=== PATIENT | male | born 1955 | race African-American/Black ===

== ENCOUNTER 2016-08-29 07:56 | Inpatient (IN) | payer OTHER ==
[~2016-08-29] VITALS: Ht 177.8 cm; Wt 104.3 kg
[~2016-08-29 07:56] MED LIST: ACETAMINOPHEN-1 EAC1 ORAL; ALBUTEROL SULF8.5 GM INH; ALBUTEROL2.5 MG/3 M HHN; ASPIR-LOW81 MG PO; AZITHROMYCIN250 MG ORAL; AZITHROMYCIN250 MG PO; AZITHROMYCIN500 MG ORAL; BENAZEPRIL HCL20 MG ORAL; CHLORTHALIDONE50 MG ORAL; DULERA 100 MCG/13 GM INH; FUROSEMIDE40 MG ORAL; IBUPROFEN600 MG ORAL; LASIX40 MG ORAL; PREDNISONE20 MG ORAL; PREDNISONE50 MG ORAL; PREDNISONE50 MG PO; SPIRIVA18 MCG INH
[2016-08-29] MEDS ORDERED: Solu-MEDROL 125mg Inj IVP ONE (08:15)
[2016-08-29] MEDS ORDERED: Azithromycin 500 MG in NS 275 ML IV ONE (08:15)
[2016-08-29] MEDS: Ipratropium 0.02% Inh Soln 2.5ml UD HHN SCH ×3 (08:21→08:50)
[2016-08-29 08:33] VITALS: BP 190/120
[2016-08-29] MEDS: Albuterol ud Inhalation HHN SCH ×3 (08:37→08:51)
[2016-08-29] MEDS ORDERED: Azithromycin Inj IV ONE (08:47)
--- NOTE | 2016-08-29 08:57 | Emergency Room Report ---
History of Present Illness General Chief Complaint: Lower Back Pain or Injury Source: Patient Present Illness HPI 61 YO M BIBEMS for "right lower back pain" for 2 days with weakness/difficulty ambulating. Denies any trauma. Denies lower extremity muscle strength weakness , urinary/fecal incontinence, history of IVDU, fever/chills, known sciatica. Here, patient states "I'm worried I have appendicitis but I have no idea what that feels like." Then patient endorses cough, SOB. + history for COPD but denies smoking now. States has "filter" for blood clots but is not on AC currently. States known HTN, but also not on meds. States "pre-diabetic." Not on medication for that either. Patient also has golf club/iron with him. States its his "weapon" and "for walking". States [employer] took his wheelchair. Patient is undomiciled. Allergies: Coded Allergies: No Known Allergies (Verified , 12/21/06) Patient History Past Medical History: HTN, COPD, other - DVT/PE? Past Surgical History: other - IVC filter? Pertinent Family History: none Social History: Denies: alcohol use, drug use, smoking Immunizations: UTD Reviewed Nursing Documentation: PMH: Agreed, PSxH: Agreed Nursing Documentation-PMH Hx Cardiac Problems: No - PE in 01/2014 Hx Hypertension: Yes Hx COPD: Yes - Pulomary emboli Hx Cancer: No Hx Gastrointestinal Problems: Yes Hx Neurological Problems: Yes Hx Weakness: Yes Review of Systems All Other Systems: negative except mentioned in HPI Physical Exam Vital Signs Date Time Temp Pulse Resp B/P Pulse Ox O2 Delivery O2 Flow Rate FiO2 08/29/16 07:56 98.2 85 18 190/120 94 Room Air 08/29/16 08:15 21 Sp02 EP Interpretation: reviewed, abnormal General Appearance: normal inspection, well appearing, no apparent distress, alert, GCS 15, non-toxic Head: normocephalic, atraumatic Eyes: bilateral eye EOMI, bilateral eye PERRL ENT: normal ENT inspection, hearing grossly normal, normal voice Neck: normal inspection, full range of motion, supple, no bony tend Respiratory: normal inspection, lungs clear, normal breath sounds, no rhonchi, no respiratory distress, no retraction, no accessory muscle use, no wheezing, crackles, rhonchi Cardiovascular #1: regular rate, rhythm, no edema Gastrointestinal: normal inspection, normal bowel sounds, non tender, soft, no guarding, no hernia Genitourinary: no CVA tenderness Musculoskeletal: normal inspection, back normal, normal range of motion, no calf tenderness, pelvis stable, Michelle's Sign negative, other - No midline back Neurologic: normal inspection, alert, oriented x3, responsive, charge operator III-XII nml as tested, motor strength/tone normal, other - Straight leg raise test negative Psychiatric: normal inspection, judgement/insight normal, mood/affect normal Skin: other - No pitting edema. Chronic venous stasis dermatitis bilaterally. No ulcers Lymphatic: normal inspection Medical Decision Making Diagnostic Impression: Primary Impression: COPD exacerbation Additional Impressions: Hypertension Qualified Codes: I10 - Essential (primary) hypertension Weakness ER Course 61 YO F with likely acute COPD exacerbation. VSS. Afebrile. Not septic. Empiric nebs, solumedrol, empiric Azithromycin PLAN: Cardiac, O2 monitor, Labs, CXR, ECG, likely admit EKG Diagnostic Results Rate: normal Rhythm: NSR ST Segments: no acute changes ASA given to the pt in ED: No Rhythm Strip Diag. Results EP Interpretation: yes Rate: 69 Rhythm: NSR, no PVC's, no ectopy Chest X-Ray Diagnostic Results EP Interpretation: Yes Findings: no consolidation, no effusion, no pneumothorax, no acute cardiopulmonary disease Number of Views: 1 Reevaluation Time: 09:16 Last Vital Signs Date Time Temp Pulse Resp B/P Pulse Ox O2 Delivery O2 Flow Rate FiO2 08/29/16 08:38 21 08/29/16 08:38 72 20 98 Room Air 08/29/16 08:33 98.2 190/120 Status: improved Reevaluation Impression Labs: No leuks. H&H stable. Coags show INR 1. Troponin 0. ECG is NSR, no ischemia. CXR: No obvious PNA A: Admitted for weakness, acute COPD exacerbation Admitted to Dr Alfonso at 917am Disposition: ADMITTED INPATIENT Condition: Serious Referrals: NON PHYSICIAN (PCP) KINGSTON COMBS M.D. Aug 29, 2016 08:57
[2016-08-29 09:02] LABS: BASOPHILS % (AUTO) 1.6 % (0.0-2.0); EOSINOPHILS % (AUTO) 3.3 % (0.0-3.0); LYMPHOCYTES % (AUTO) 25.6 % (20.0-45.0); MEAN CORPUSCULAR HGB CONC 31.1 G/DL (32.0-36.0); MEAN CORPUSCULAR VOLUME 93 FL (80-99); MEAN PLATELET VOLUME 7.9 FL (6.5-10.1); MONOCYTES % (AUTO) 10.3 % (1.0-10.0); NEUTROPHILS % (AUTO) 59.3 % (45.0-75.0); PLATELET COUNT 175 K/UL (150-450); RED BLOOD COUNT 5.39 M/UL (4.70-6.10); RED CELL DISTRIBUTION WIDTH 13.9 % (11.6-14.8); WHITE BLOOD COUNT 4.2 K/UL (4.8-10.8)
[2016-08-29 09:05] LABS: PROTHROMBIN TIME 10.4 SEC (9.30-11.50)
[2016-08-29 09:09] LABS: ALANINE AMINOTRANSFERASE 12 U/L (3-41); ALBUMIN/GLOBULIN RATIO 1.7 (1.0-2.7); ANION GAP 16 (5-15); ASPARTATE AMINO TRANSFERASE 18 U/L (5-40); CALCIUM 9.4 mg/dL (8.6-10.2); CARBON DIOXIDE 25 mEQ/L (20-30); CHLORIDE 101 mEQ/L (98-107); CREATININE 1.2 mg/dL (0.7-1.2); GLOMERULAR FILTRATION RATE > 60 mL/min (>60); HEMOLYSIS 7; LIPASE 52 U/L (< 60); POTASSIUM 4.4 mEQ/L (3.4-4.9); SODIUM 142 mEQ/L (135-145); TOTAL PROTEIN 6.7 g/dL (6.6-8.7); TROPONIN I < 0.30 ng/mL (<=0.30)
[2016-08-29 09:52] LABS: APPEARANCE,URINE CLEAR; KETONES,URINE 1+ (NEGATIVE); LEUKOCYTE ESTERASE ,URINE NEGATIVE (NEGATIVE); NITRITE,URINE NEGATIVE (NEGATIVE); PH,URINE 7 (4.5-8.0); PROTEIN,URINE NEGATIVE (NEGATIVE); UROBILINOGEN,URINE NORMAL MG/DL (0.0-1.0)
[2016-08-29 10:30] VITALS: BP 172/107
--- NOTE | 2016-08-29 10:38 | Diagnostic Imaging Report ---
Indication: Chest Pain Comparison: 12/06/15 A single view chest radiograph was obtained. Findings: No definite infiltrate or pulmonary vascular congestion identified. The heart is enlarged. The aorta is mildly enlarged consistent with atherosclerotic vascular disease. The bones are osteopenic. Impression: No acute disease
[2016-08-29 11:00] VITALS: BP 155/102
[2016-08-29 16:00] VITALS: BP 167/112
[2016-08-29] MEDS ORDERED: DuoNeb 0.5-3(2.5)mg/3ml neb HHN PRN (16:30)
[2016-08-29] MEDS ORDERED: Zolpidem 5mg tab ORAL PRN (16:30)
--- NOTE | 2016-08-29 16:50 | Consultation ---
History of Present Illness General Date patient seen: Aug 29, 2016 Chief Complaint: Lower Back Pain or Injury Present Illness HPI 61 year old homeless man with of IVDU, COPD, prsents with CC of cough, SOB. He was noticed to have swollen legs and admitted for bronchitis and dyspnea Allergies: Coded Allergies: No Known Allergies (Verified , 12/21/06) Medication History Scheduled Albuterol Sulfate* (Albuterol Sulfate Hhn*), 2.5 MG HHN Q6H, (Reported) Albuterol Sulfate* (Albuterol Sulfate Mdi*), 2 PUFF INH Q6H Aspirin* (Aspir-Low*), 81 MG PO DAILY, (Reported) Benazepril Hcl* (Benazepril Hcl*), 20 MG ORAL DAILY Benazepril Hcl* (Benazepril Hcl*), 20 MG ORAL EVERY 12 HOURS Chlorthalidone* (Chlorthalidone*), 50 MG ORAL DAILY, (Reported) Furosemide* (Lasix*), 40 MG ORAL DAILY Mometasone/Formoterol (Dulera 100 Mcg/5 Mcg Inhaler), 2 PUFFS INH EVERY 12 HOURS , (Reported) Prednisone* (Prednisone*), 60 MG ORAL DAILY Tiotropium [place]* (Spiriva*), 1 PUFF INH DAILY, (Reported) Scheduled PRN Acetaminophen With Codeine (T#3) (Tylenol #3 Tab*), 1 TAB ORAL Q8H PRN for For Pain Ibuprofen* (Motrin*), 600 MG ORAL Q8H PRN for For Pain Patient History Healthcare decision maker Resuscitation status Full Code Advanced Directive on File Past Medical/Surgical History Past Medical/Surgical History: (1) COPD exacerbation (2) Hypertension Review of Systems All Other Systems: negative except mentioned in HPI Physical Exam General Appearance: WD/WN Lines, tubes and drains: central line, PICC HEENT: normocephalic, atraumatic, PERRL Neck: normal alignment Respiratory/Chest: chest wall non-tender, lungs clear Cardiovascular/Chest: normal peripheral pulses Last 24 Hour Vital Signs Date Time Temp Pulse Resp B/P Pulse Ox O2 Delivery O2 Flow Rate FiO2 08/29/16 16:00 98.6 78 20 167/112 93 Room Air 08/29/16 11:00 98.4 85 20 155/102 96 Room Air 08/29/16 10:31 98.2 88 17 172/107 96 Room Air 21 08/29/16 10:30 98.2 88 17 172/107 96 Room Air 08/29/16 09:02 88 16 96 Room Air 21 08/29/16 08:38 21 08/29/16 08:38 72 20 98 Room Air 21 08/29/16 08:33 98.2 22 190/120 96 Room Air 21 08/29/16 08:15 69 22 Room Air 21 08/29/16 08:15 69 22 96 Room Air 21 08/29/16 08:15 21 08/29/16 07:56 98.2 85 18 190/120 94 Room Air Laboratory Tests Test 08/29/16 08:24 08/29/16 09:36 White Blood Count 4.2 K/UL (4.8-10.8) L Red Blood Count 5.39 M/UL (4.70-6.10) Hemoglobin 15.6 G/DL (14.2-18.0) Hematocrit 50.2 % (42.0-52.0) Mean Corpuscular Volume 93 FL (80-99) Mean Corpuscular Hemoglobin 29.0 PG (27.0-31.0) Mean Corpuscular Hemoglobin Concent 31.1 G/DL (32.0-36.0) L Red Cell Distribution Width 13.9 % (11.6-14.8) Platelet Count 175 K/UL (150-450) Mean Platelet Volume 7.9 FL (6.5-10.1) Neutrophils (%) (Auto) 59.3 % (45.0-75.0) Lymphocytes (%) (Auto) 25.6 % (20.0-45.0) Monocytes (%) (Auto) 10.3 % (1.0-10.0) H Eosinophils (%) (Auto) 3.3 % (0.0-3.0) H Basophils (%) (Auto) 1.6 % (0.0-2.0) Prothrombin Time 10.4 SEC (9.30-11.50) Prothromb Time International Ratio 1.0 (0.9-1.1) Activated Partial Thromboplast Time 28 SEC (23-33) Sodium Level 142 mEQ/L (135-145) Potassium Level 4.4 mEQ/L (3.4-4.9) Chloride Level 101 mEQ/L (98-107) Carbon Dioxide Level 25 mEQ/L (20-30) Anion Gap 16 (5-15) H Blood Urea Nitrogen 17 mg/dL (7-23) Creatinine 1.2 mg/dL (0.7-1.2) Estimat Glomerular Filtration Rate > 60 mL/min (>60) Glucose Level 96 mg/dL (74-106) Calcium Level 9.4 mg/dL (8.6-10.2) Total Bilirubin 0.5 mg/dL (0.0-1.2) Aspartate Amino Transf (AST/SGOT) 18 U/L (5-40) Alanine Aminotransferase (ALT/SGPT) 12 U/L (3-41) Alkaline Phosphatase 91 U/L (40-129) Total Creatine Kinase 104 U/L (38-174) Troponin I < 0.30 ng/mL (<=0.30) Total Protein 6.7 g/dL (6.6-8.7) Albumin 4.3 g/dL (3.5-5.2) Globulin 2.4 g/dL Albumin/Globulin Ratio 1.7 (1.0-2.7) Lipase 52 U/L (< 60) Urine Color Pale yellow Urine Appearance Clear Urine pH 7 (4.5-8.0) Urine Specific [place] 1.010 (1.005-1.035) Urine Protein Negative (NEGATIVE) Urine Glucose (UA) Negative (NEGATIVE) Urine Ketones 1+ (NEGATIVE) H Urine Occult Blood Negative (NEGATIVE) Urine Nitrite Negative (NEGATIVE) Urine Bilirubin Negative (NEGATIVE) Urine Urobilinogen Normal MG/DL (0.0-1.0) Urine Leukocyte Esterase Negative (NEGATIVE) Height (Feet): 5 Height (Inches): 10.00 Weight (Pounds): 230 Medications Current Medications Medications (Trade) Dose Ordered Sig/Fabi Route PRN Reason Start Time Stop Time Status Last Admin Dose Admin Acetaminophen (Tylenol) 650 mg Q4H PRN ORAL Mild Pain/Temp > 100.5 08/29/16 16:45 09/28/16 16:44 UNV Albuterol/ Ipratropium (DuoNeb 0.5-3(2.5)mg/3ml) 3 ml EVERY 4 HOURS PRN HHN Shortness of Breath 08/29/16 16:30 09/03/16 16:29 UNV Ceftriaxone Sodium/Dextrose (Rocephin/D5W) 55 ml @ 110 mls/hr Q24H IVPB 08/29/16 16:45 09/05/16 16:44 UNV Dextrose STAT PRN IV Hypoglycemia 08/29/16 16:30 09/28/16 16:29 UNV Diphenhydramine HCl (Benadryl) 25 mg Q6H PRN ORAL Itching/Pruritis 08/29/16 16:30 09/28/16 16:29 UNV Heparin Sodium (Porcine) (Heparin 5000 units/ml) 5,000 units EVERY 12 HOURS SUBQ 08/29/16 21:00 09/28/16 20:59 UNV Hydromorphone HCl (Dilaudid) 2 mg EVERY 4 HOURS PRN IVP Severe Pain (Pain Scale 7-10) 08/29/16 16:30 09/05/16 16:29 UNV Levofloxacin 100 ml @ 100 mls/hr Q24H IVPB 08/29/16 16:45 09/05/16 16:44 UNV Ondansetron HCl (Zofran) 4 mg EVERY 4 HOURS PRN IVP Nausea & Vomiting 08/29/16 16:30 09/28/16 16:29 UNV Pantoprazole (Protonix) 40 mg DAILY ORAL 08/29/16 16:30 09/28/16 16:29 UNV Zolpidem Tartrate (Ambien) 10 mg HSPRN PRN ORAL Insomnia 08/29/16 16:30 09/28/16 16:29 UNV Assessment/Plan Problem List: (1) COPD exacerbation (2) Hypertension ICD Codes: I10 - Essential (primary) hypertension SNOMED: 78919736 (3) Weakness ICD Codes: R53.1 - Weakness SNOMED: 24923698 (4) Peripheral edema ICD Codes: R60.9 - Edema, unspecified SNOMED: 058385237 (5) History of DVT (deep vein thrombosis) ICD Codes: Z86.718 - Personal history of other venous thrombosis and embolism SNOMED: 915966903 Assessment/Plan iv antibiotics respiratory treatment venous doppler HELEN MURRAY Aug 29, 2016 16:50
[2016-08-29] MEDS: Furosemide 40mg tab ORAL SCH (18:09)
--- NOTE | 2016-08-29 18:33 | Consultation ---
Consult Note Consult Note Complaining of bilateral foot toenails being painful and elongated. States bilateral leg edema has improved over the past year. Has a history of posterior leg pruritus and dry scaly hyperkeratotic tissue Assessment/Plan Assessment: - Painful mycotic and elongated toenails - Bilateral leg pruritus and hyperkeratosis at the posterior legs - Bilateral leg edema - COPD - Homelessness - History of DVT Plan: - Debrided toenails bilaterally - Start applying A&D ointment to bilateral feet and legs - No DVT bilateral lower extremities with doppler studies in 2013. Repeating studies. Follow up results Larry Gonzalez DPM Aug 29, 2016 18:33
[2016-08-29 19:00] VITALS: BP 138/86
[2016-08-29] MEDS: Theophylline ER 100mg ORAL SCH (20:24)
[2016-08-29] MEDS: Miralax 17gm pkt ORAL SCH (20:24)
[2016-08-29] MEDS: cefTRIAXone 1 GM in D5W 55 ML IVPB SCH (20:25)
[2016-08-29] MEDS: Heparin 5000 units/ml inj SUBQ SCH (20:27)
--- NOTE | 2016-08-29 22:57 | History and Physical Report ---
DATE OF ADMISSION: 08/29/2016 CHIEF COMPLAINT: The patient is a 61-year-old male, presents with complaint of right lower back pain. HISTORY OF PRESENT ILLNESS: Began on 08/28/2016. The patient is currently homeless. The patient states he sleeps on a patio of a friend. 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 The patient denies trauma. The patient denies fevers or chills. The patient denies hematuria or dysuria. The patient was brought in by EMS. The patient was complaining of right flank pain as above. The patient was admitted for right flank pain to rule out pyelonephritis. PAST MEDICAL HISTORY: Significant for, 1. Prediabetes. 2. Hypertension. 3. Chronic obstructive pulmonary disease. 4. History of deep venous thrombosis bilateral lower extremities with pulmonary embolism, status post IVC filter placement in 2012. PAST SURGICAL HISTORY: The patient denies. CURRENT MEDICATIONS: The patient has run out of all of his medications. ALLERGIES: No known drug allergies. SOCIAL HISTORY: The patient is single and lives with a friend. The patient denies tobacco use having quit in 2008. The patient denies alcohol use. REVIEW OF SYSTEMS: Constitutional: The patient denies weight loss or weight gain. The patient denies fevers or chills. HEENT: The patient denies ear or throat pain. Cardiovascular: The patient denies palpitations or chest pain. Chest: The patient denies wheezes or shortness of breath. Abdomen: The patient complains of right flank pain as above. The patient denies nausea, vomiting, diarrhea, or constipation. Genitourinary: The patient denies dysuria or increased frequency of urination. The patient denies hematuria. Neuromuscular: The patient denies seizures or generalized weakness. PHYSICAL EXAMINATION: VITAL SIGNS: Temperature 98.2 degrees, respirations 17, pulse 88, and blood pressure 172/107. GENERAL: The patient is well-developed and well-nourished male, in no apparent distress. HEENT: Eyes, pupils are equal and responsive to light and accommodation. Extraocular movements are intact. NECK: Supple. No lymphadenopathy. CHEST: Lungs are clear to auscultation bilaterally without wheezes or rales. CARDIOVASCULAR: Regular rhythm and rate. S1, S2. No murmurs, rubs, or gallops. ABDOMEN: Soft, nontender, and nondistended. Positive bowel sounds. No evidence of hepatosplenomegaly. Currently, no rebound or guarding. EXTREMITIES: Negative for clubbing, cyanosis, or or edema. RECTAL: Refused. GENITAL: Refused. NEUROLOGIC: Cranial nerves II through XII grossly intact without focal deficits. Motor strength is 5/5 bilaterally. Deep tendon reflexes are 2+ plantar. LABORATORY STUDIES: WBC 4.2, hemoglobin 15.6, hematocrit 50.2, and platelets 175,000. Sodium 142, potassium 4.4, chloride 101, CO2 25, BUN 17, creatinine 1.2, and glucose 96. Urinalysis showed 1+ ketones, otherwise within normal limits. ASSESSMENT: This is a 61-year-old male, 1. Right flank pain. 2. Hypertension. 3. Chronic obstructive pulmonary disease. 4. History of deep venous thrombosis. 5. Prediabetes. TREATMENT: 1. Right flank pain. An initial urinalysis was within normal limits. Urine culture is pending. The patient has been started empirically on Levaquin and Rocephin. The patient may have a CT scan of the abdomen is pending. 2. Hypertension. Continue benazepril 20 mg one tablet p.o. daily. 3. Chronic obstructive pulmonary disease. The patient will be offered Solu-Medrol p.r.n. Continue DuoNeb q. 4 hours p.r.n. 4. Prediabetes. Hemoglobin A1c is pending. Initial blood glucose was within normal limits. Beebto Proctor M.D. DR: Douglas JOB#: [id number] CC:
[2016-08-29 23:50] VITALS: BP 131/83
[2016-08-30] MEDS: Promethazine/Codeine 5ml UD ORAL PRN (00:37)
[2016-08-30 04:00] VITALS: BP 143/86
[2016-08-30 08:35] VITALS: BP 161/126
[2016-08-30] MEDS: Furosemide 40mg tab ORAL SCH (09:12)
[2016-08-30] MEDS: Theophylline ER 100mg ORAL SCH ×2 (09:12→20:28)
[2016-08-30] MEDS: Heparin 5000 units/ml inj SUBQ SCH ×2 (09:13→20:28)
[2016-08-30] MEDS ORDERED: Pneumococcal Vaccine 25mcg/0.5ml IM ONE (10:00)
[2016-08-30] MEDS ORDERED: Influenza Virus Vaccine 0.5ml IM ONE (10:00)
[2016-08-30 10:11] LABS: EOSINOPHILS % (AUTO) 0.6 % (0.0-3.0); LYMPHOCYTES % (AUTO) 23.7 % (20.0-45.0); MEAN CORPUSCULAR HEMOGLOBIN 29.7 PG (27.0-31.0); MEAN CORPUSCULAR HGB CONC 31.8 G/DL (32.0-36.0); MEAN CORPUSCULAR VOLUME 93 FL (80-99); MEAN PLATELET VOLUME 8.5 FL (6.5-10.1); MONOCYTES % (AUTO) 11.1 % (1.0-10.0); NEUTROPHILS % (AUTO) 63.5 % (45.0-75.0); PLATELET COUNT 173 K/UL (150-450); RED CELL DISTRIBUTION WIDTH 13.4 % (11.6-14.8); WHITE BLOOD COUNT 6.4 K/UL (4.8-10.8)
[2016-08-30 10:29] LABS: ALANINE AMINOTRANSFERASE 11 U/L (3-41); ALBUMIN/GLOBULIN RATIO 1.5 (1.0-2.7); ANION GAP 12 (5-15); ASPARTATE AMINO TRANSFERASE 14 U/L (5-40); CALCIUM 8.9 mg/dL (8.6-10.2); CARBON DIOXIDE 27 mEQ/L (20-30); CHLORIDE 101 mEQ/L (98-107); CREATININE 1.2 mg/dL (0.7-1.2); GLOMERULAR FILTRATION RATE > 60 mL/min (>60); HEMOLYSIS 4; POTASSIUM 4.2 mEQ/L (3.4-4.9); SODIUM 140 mEQ/L (135-145); TOTAL PROTEIN 6.5 g/dL (6.6-8.7)
[2016-08-30 12:09] VITALS: BP 169/110
--- NOTE | 2016-08-30 15:43 | Pulmonology Progress Note ---
Assessment/Plan Problems: (1) COPD exacerbation (2) Hypertension (3) Weakness (4) Peripheral edema (5) History of DVT (deep vein thrombosis) Assessment/Plan imroving resiratory treatment chest pt incentive spirometry Subjective ROS Limited/Unobtainable: No Constitutional: Reports: no symptoms HEENT: Repors: no symptoms Respiratory: Reports: no symptoms Allergies: Coded Allergies: No Known Allergies (Verified , 12/21/06) Objective Last 24 Hour Vital Signs Date Time Temp Pulse Resp B/P Pulse Ox O2 Delivery O2 Flow Rate FiO2 08/30/16 12:09 98.1 66 20 169/110 96 Room Air 08/30/16 09:12 161/126 08/30/16 08:35 98.1 71 18 161/126 94 Room Air 08/30/16 04:00 98.9 77 22 143/86 97 Room Air 08/30/16 01:41 98.7 08/29/16 23:50 98.7 70 20 131/83 97 Room Air 08/29/16 19:00 97.5 82 20 138/86 94 Room Air 08/29/16 18:52 70 14 Room Air 08/29/16 18:09 167/112 08/29/16 16:00 98.6 78 20 167/112 93 Room Air Intake and Output 08/29/16 08/30/16 19:00 07:00 Intake Total 1000 ml 275 ml Output Total 1 ml Balance 999 ml 275 ml Intake Oral 120 ml IV Total 155 ml Other 1000 ml Output Urine Total 1 ml # Voids 2 6 General Appearance: WD/WN HEENT: atraumatic, PERRL Abdomen: normal bowel sounds Genitourinary: normal external genitalia Skin: no rash Laboratory Tests 08/30/16 09:15: White Blood Count 6.4#, Red Blood Count 5.00, Hemoglobin 14.8, Hematocrit 46.7, Mean Corpuscular Volume 93, Mean Corpuscular Hemoglobin 29.7, Mean Corpuscular Hemoglobin Concent 31.8L, Red Cell Distribution Width 13.4, Platelet Count 173, Mean Platelet Volume 8.5, Neutrophils (%) (Auto) 63.5, Lymphocytes (%) (Auto) 23.7, Monocytes (%) (Auto) 11.1H, Eosinophils (%) (Auto) 0.6, Basophils (%) ( Auto) 1.0, Sodium Level 140, Potassium Level 4.2, Chloride Level 101, Carbon Dioxide Level 27, Anion Gap 12, Blood Urea Nitrogen 19, Creatinine 1.2, Estimat Glomerular Filtration Rate > 60, Glucose Level 98, Hemoglobin A1c 6.0, Calcium Level 8.9, Total Bilirubin 0.3, Aspartate Amino Transf (AST/SGOT) 14, Alanine Aminotransferase (ALT/SGPT) 11, Alkaline Phosphatase 75, Total Protein 6.5L, Albumin 3.9, Globulin 2.6, Albumin/Globulin Ratio 1.5 Current Medications Medications (Trade) Dose Ordered Sig/Fabi Route PRN Reason Start Time Stop Time Status Last Admin Dose Admin Acetaminophen (Tylenol) 650 mg Q4H PRN ORAL Mild Pain/Temp > 100.5 08/29/16 16:45 09/28/16 16:44 08/30/16 00:38 Albuterol/ Ipratropium (DuoNeb 0.5-3(2.5)mg/3ml) 3 ml Q4H PRN HHN Shortness of Breath 08/29/16 16:30 09/03/16 16:29 Benazepril HCl (Lotensin) 40 mg DAILY ORAL 08/29/16 18:00 09/28/16 17:59 08/30/16 09:12 Ceftriaxone Sodium/Dextrose (Rocephin/D5W) 55 ml @ 110 mls/hr Q24H IVPB 08/29/16 20:00 09/05/16 19:59 08/29/16 20:25 Dextrose STAT PRN IV Hypoglycemia 08/29/16 16:30 09/28/16 16:29 Diphenhydramine HCl (Benadryl) 25 mg Q6H PRN ORAL Itching/Pruritis 08/29/16 16:30 09/28/16 16:29 Furosemide (Lasix) 40 mg DAILY ORAL 08/29/16 18:00 09/28/16 17:59 08/30/16 09:12 Heparin Sodium (Porcine) (Heparin 5000 units/ml) 5,000 units EVERY 12 HOURS SUBQ 08/29/16 21:00 09/28/16 20:59 08/30/16 09:13 Hydromorphone HCl (Dilaudid) 2 mg Q4H PRN IVP Severe Pain (Pain Scale 7-10) 08/29/16 16:30 09/05/16 16:29 Levofloxacin 100 ml @ 100 mls/hr Q24H IVPB 08/29/16 19:00 09/05/16 18:59 08/29/16 19:22 Ondansetron HCl (Zofran) 4 mg Q4H PRN IVP Nausea & Vomiting 08/29/16 16:30 09/28/16 16:29 Pantoprazole (Protonix) 40 mg DAILY ORAL 08/29/16 18:00 09/28/16 17:59 08/30/16 09:12 Polyethylene Glycol (Miralax) 17 gm BEDTIME ORAL 08/29/16 21:00 09/28/16 20:59 08/29/16 20:24 Promethazine HCl/ Codeine (Phenergan with Codeine) 5 ml Q4H PRN ORAL For Cough 08/29/16 16:45 09/28/16 16:44 08/30/16 00:37 Theophylline (Kamar-Dur) 100 mg EVERY 12 HOURS ORAL 08/29/16 21:00 09/28/16 20:59 08/30/16 09:12 Zolpidem Tartrate (Ambien) 5 mg HSPRN PRN ORAL Insomnia 08/29/16 16:30 09/28/16 16:29 HELEN MURRAY Aug 30, 2016 15:43
[2016-08-30 16:00] VITALS: BP 139/97
--- NOTE | 2016-08-30 16:02 | Wound Care Consultation ---
Wound Assessment Wound Assessment : Wound Present on Admission: Yes New Wound: No Status Change of Wound: No Wound Location Body Site Modif: left, right, lower Wound Location Body Site: leg Wound Type: other - dryness with scattered small scabs Vascular Issues: edema Edema Degree: 3+ deep indentation Wound Drainage Amount: None Wound Drainage Odor: None/Absent Tissue Surrounding Wound: dryness Wound General Appearance: Asymptomatic, Open to air Wound Comment #1 Dryness on both lower legs with scattered small dry scabs Recommendation -Elevate both legs to reduce edema -Keep clean and moist with an application of A&D ointment Q12hrs -Optimize nutrition -Offload both heels while Pt is in bed -Assess and f/u for any changes accordingly LIMA DODSON RN Aug 30, 2016 16:02
--- NOTE | 2016-08-30 17:19 | Internal Med Progress Note ---
Subjective Date of Service: Aug 30, 2016 Physician Name DrakeMorena Attending Physician Bienvenido Alfonso MD Current Medications Medications (Trade) Dose Ordered Sig/Fabi Route PRN Reason Start Time Stop Time Status Last Admin Dose Admin Acetaminophen (Tylenol) 650 mg Q4H PRN ORAL Mild Pain/Temp > 100.5 08/29/16 16:45 09/28/16 16:44 08/30/16 00:38 Albuterol/ Ipratropium (DuoNeb 0.5-3(2.5)mg/3ml) 3 ml Q4H PRN HHN Shortness of Breath 08/29/16 16:30 09/03/16 16:29 Benazepril HCl (Lotensin) 40 mg DAILY ORAL 08/29/16 18:00 09/28/16 17:59 08/30/16 09:12 Ceftriaxone Sodium/Dextrose (Rocephin/D5W) 55 ml @ 110 mls/hr Q24H IVPB 08/29/16 20:00 09/05/16 19:59 08/29/16 20:25 Dextrose STAT PRN IV Hypoglycemia 08/29/16 16:30 09/28/16 16:29 Diphenhydramine HCl (Benadryl) 25 mg Q6H PRN ORAL Itching/Pruritis 08/29/16 16:30 09/28/16 16:29 Furosemide (Lasix) 40 mg DAILY ORAL 08/29/16 18:00 09/28/16 17:59 08/30/16 09:12 Heparin Sodium (Porcine) (Heparin 5000 units/ml) 5,000 units EVERY 12 HOURS SUBQ 08/29/16 21:00 09/28/16 20:59 08/30/16 09:13 Hydromorphone HCl (Dilaudid) 2 mg Q4H PRN IVP Severe Pain (Pain Scale 7-10) 08/29/16 16:30 09/05/16 16:29 Levofloxacin 100 ml @ 100 mls/hr Q24H IVPB 08/29/16 19:00 09/05/16 18:59 08/29/16 19:22 Ondansetron HCl (Zofran) 4 mg Q4H PRN IVP Nausea & Vomiting 08/29/16 16:30 09/28/16 16:29 Pantoprazole (Protonix) 40 mg DAILY ORAL 08/29/16 18:00 09/28/16 17:59 08/30/16 09:12 Polyethylene Glycol (Miralax) 17 gm BEDTIME ORAL 08/29/16 21:00 09/28/16 20:59 08/29/16 20:24 Promethazine HCl/ Codeine (Phenergan with Codeine) 5 ml Q4H PRN ORAL For Cough 08/29/16 16:45 09/28/16 16:44 08/30/16 00:37 Theophylline (Kamar-Dur) 100 mg EVERY 12 HOURS ORAL 08/29/16 21:00 09/28/16 20:59 08/30/16 09:12 Vitamin A/Vitamin D (A & D Oint) 1 applic EVERY 12 HOURS TOPIC 08/30/16 21:00 09/29/16 20:59 Zolpidem Tartrate (Ambien) 5 mg HSPRN PRN ORAL Insomnia 08/29/16 16:30 09/28/16 16:29 Allergies: Coded Allergies: No Known Allergies (Verified , 12/21/06) ROS Limited/Unobtainable: No Constitutional: Reports: no symptoms HEENT: Reports: no symptoms Cardiovascular: Reports: no symptoms Respiratory: Reports: no symptoms Gastrointestinal/Abdominal: Reports: abdominal pain - right flank pain Genitourinary: Reports: no symptoms Neurologic/Psychiatric: Reports: no symptoms Subjective 61 YO M admitted with right flank pain. Cover for Int Bj-Dr Alfonso. Await CT abdomen results. Objective Last Vital Signs Date Time Temp Pulse Resp B/P Pulse Ox O2 Delivery O2 Flow Rate FiO2 08/30/16 16:00 98.6 77 18 139/97 95 Room Air 08/29/16 10:31 21 General Appearance: WD/WN, no apparent distress, alert EENT: PERRL/EOMI, normal ENT inspection Neck: non-tender, normal alignment, supple, normal inspection Cardiovascular: normal peripheral pulses, normal rate, regular rhythm, no gallop/murmur, no JVD Respiratory/Chest: chest wall non-tender, lungs clear, normal breath sounds, no respiratory distress, no accessory muscle use Abdomen: normal bowel sounds, non tender, soft, no organomegaly, no mass Edema: moderate edema 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, no motor/sensory deficits Skin: normal pigmentation, warm/dry Laboratory Tests Test 08/30/16 09:15 White Blood Count 6.4 K/UL (4.8-10.8) # Red Blood Count 5.00 M/UL (4.70-6.10) Hemoglobin 14.8 G/DL (14.2-18.0) Hematocrit 46.7 % (42.0-52.0) Mean Corpuscular Volume 93 FL (80-99) Mean Corpuscular Hemoglobin 29.7 PG (27.0-31.0) Mean Corpuscular Hemoglobin Concent 31.8 G/DL (32.0-36.0) L Red Cell Distribution Width 13.4 % (11.6-14.8) Platelet Count 173 K/UL (150-450) Mean Platelet Volume 8.5 FL (6.5-10.1) Neutrophils (%) (Auto) 63.5 % (45.0-75.0) Lymphocytes (%) (Auto) 23.7 % (20.0-45.0) Monocytes (%) (Auto) 11.1 % (1.0-10.0) H Eosinophils (%) (Auto) 0.6 % (0.0-3.0) Basophils (%) (Auto) 1.0 % (0.0-2.0) Sodium Level 140 mEQ/L (135-145) Potassium Level 4.2 mEQ/L (3.4-4.9) Chloride Level 101 mEQ/L (98-107) Carbon Dioxide Level 27 mEQ/L (20-30) Anion Gap 12 (5-15) Blood Urea Nitrogen 19 mg/dL (7-23) Creatinine 1.2 mg/dL (0.7-1.2) Estimat Glomerular Filtration Rate > 60 mL/min (>60) Glucose Level 98 mg/dL (74-106) Hemoglobin A1c 6.0 % (< 6.0) Calcium Level 8.9 mg/dL (8.6-10.2) Total Bilirubin 0.3 mg/dL (0.0-1.2) Aspartate Amino Transf (AST/SGOT) 14 U/L (5-40) Alanine Aminotransferase (ALT/SGPT) 11 U/L (3-41) Alkaline Phosphatase 75 U/L (40-129) Total Protein 6.5 g/dL (6.6-8.7) L Albumin 3.9 g/dL (3.5-5.2) Globulin 2.6 g/dL Albumin/Globulin Ratio 1.5 (1.0-2.7) Intake and Output 08/29/16 08/30/16 19:00 07:00 Intake Total 1000 ml 275 ml Output Total 1 ml Balance 999 ml 275 ml Intake Oral 120 ml IV Total 155 ml Other 1000 ml Output Urine Total 1 ml # Voids 2 6 Assessment/Plan Problem List: (1) Onychomycosis Assessment & Plan: See podiatry note. (2) COPD (chronic obstructive pulmonary disease) Assessment & Plan: Cont duoneb. (3) Pre-diabetes (4) Right flank pain (5) Edema of both legs Assessment & Plan: Continue lasix. Await venous duplex doppler. (6) Hypertension Assessment & Plan: Cont lotensin (7) Pulmonary embolism Status: not improved MORENA DRAKE Aug 30, 2016 17:19
--- NOTE | 2016-08-30 18:11 | Cardiology Report ---
APPROVED REPORT EKG Measurement Heart [id number] Normal sinus rhythm Possible Left atrial enlargement Left ventricular hypertrophy Nonspecific T wave abnormality Abnormal ECG
--- NOTE | 2016-08-30 18:37 | Consultation ---
DATE OF CONSULTATION: 08/29/2016 CONSULTING SPECIALITY: Podiatry CONSULTING PHYSICIAN: Larry Gonzalez D.P.M. REASON FOR CONSULTATION: Bilateral legs with dry scaly skin and painful elongated toenails. CHIEF COMPLAINT: Painful toenails. HISTORY OF PRESENT ILLNESS: The patient states he had thick painful and elongated toenails bilaterally that he is unable to trim himself. He mentioned that bilateral lower extremity edema is much worse and has improved in the past year. He is homeless and he used to sleep in the car. However, last year his friend allowed him to sleep on his porch and patient is able to lay down completely when asleep which has greatly improved his bilateral leg edema PAST MEDICAL HISTORY: COPD, history of DVT, hypertension, bilateral lower extremity edema, and psoriasis. ALLERGIES: None known. MEDICATIONS: Ceftriaxone, levofloxacin and furosemide. LABORATORY AND DIAGNOSTIC DATA: His labs are white blood count of 4.2, hemoglobin 15.6, hematocrit 50.2, platelets of 175,000 and neutrophils of 59.8, sodium 142, potassium 4.4, chloride 101, carbon dioxide 25, BUN 17, creatinine 1.2 and glucose of 96. Imaging studies, venous duplex in 2013 was negative for DVT. PHYSICAL EXAMINATION: VITAL SIGNS: Vital on 08/29/2016, temperature 98.4 degrees, pulse 85, respiratory rate 20, blood pressure 155/102, and pulse ox is 90% on room air. DERMATOLOGICAL: Dry scaly skin on bilateral anterior and posterior legs. Posterior worse than anterior. Dystrophic and elongated toenails 1 through 5 bilaterally. VASCULAR: Bilateral legs with nonpitting edema. Pedal pulses are lightly palpable. NEUROLOGICAL: Sensate to light touch. MUSCULOSKELETAL: Poor muscle strength noted. ASSESSMENT: 1. Painful mycotic and elongated toenails. 2. History of psoriasis with feeling of bilateral posterior and anterior. 3. Bilateral leg edema. 4. Chronic obstructive pulmonary disease. 5. Homelessness. 6. History of deep vein thrombosis. PLAN: 1. Debrided toenails 1 through 5 bilaterally. 2. Start applying A and D ointment to bilateral feet and legs. 3. No new DVTs bilaterally noted with venous Doppler study in 2013. Repeating studies. Followup results. Larry Gonzalez DPM DR: Yara JOB#: [id number] CC: CHARLY
[2016-08-30 19:00] VITALS: BP 148/84
[2016-08-30] MEDS: cefTRIAXone 1 GM in D5W 55 ML IVPB SCH (20:27)
[2016-08-30] MEDS: Miralax 17gm pkt ORAL SCH (20:27)
[2016-08-30] MEDS: Vitamin A&D Oint 2oz Tube TOPIC SCH (20:29)
[2016-08-31] VITALS (8 sets, daily range): BP systolic 143–167; BP diastolic 92–109
[2016-08-31 08:40] LABS: ANION GAP 13 (5-15); CALCIUM 8.9 mg/dL (8.6-10.2); CARBON DIOXIDE 27 mEQ/L (20-30); CHLORIDE 100 mEQ/L (98-107); CREATININE 1.2 mg/dL (0.7-1.2); GLOMERULAR FILTRATION RATE > 60 mL/min (>60); HEMOLYSIS 6; POTASSIUM 4.1 mEQ/L (3.4-4.9); SODIUM 140 mEQ/L (135-145)
[2016-08-31 08:56] LABS: BASOPHILS % (AUTO) 1.1 % (0.0-2.0); EOSINOPHILS % (AUTO) 1.5 % (0.0-3.0); LYMPHOCYTES % (AUTO) 29.5 % (20.0-45.0); MEAN CORPUSCULAR HEMOGLOBIN 29.1 PG (27.0-31.0); MEAN CORPUSCULAR HGB CONC 30.6 G/DL (32.0-36.0); MEAN CORPUSCULAR VOLUME 95 FL (80-99); MEAN PLATELET VOLUME 7.8 FL (6.5-10.1); NEUTROPHILS % (AUTO) 57.9 % (45.0-75.0); PLATELET COUNT 189 K/UL (150-450); RED BLOOD COUNT 5.51 M/UL (4.70-6.10); RED CELL DISTRIBUTION WIDTH 13.4 % (11.6-14.8); WHITE BLOOD COUNT 4.6 K/UL (4.8-10.8)
[2016-08-31] MEDS: Furosemide 40mg tab ORAL SCH (09:35)
[2016-08-31] MEDS: Vitamin A&D Oint 2oz Tube TOPIC SCH ×2 (09:35→22:33)
[2016-08-31] MEDS: Theophylline ER 100mg ORAL SCH ×2 (09:35→22:33)
[2016-08-31] MEDS: Heparin 5000 units/ml inj SUBQ SCH ×2 (09:36→22:34)
[2016-08-31] MEDS ORDERED: Fleet's Enema 133ml RECTAL ONE (12:00)
--- NOTE | 2016-08-31 14:46 | Internal Med Progress Note ---
Subjective Date of Service: Aug 31, 2016 Physician Name Morena Drake Attending Physician Bienvenido Alfonso MD Current Medications Medications (Trade) Dose Ordered Sig/Fabi Route PRN Reason Start Time Stop Time Status Last Admin Dose Admin Acetaminophen (Tylenol) 650 mg Q4H PRN ORAL Mild Pain/Temp > 100.5 08/29/16 16:45 09/28/16 16:44 08/30/16 00:38 Albuterol/ Ipratropium (DuoNeb 0.5-3(2.5)mg/3ml) 3 ml Q4H PRN HHN Shortness of Breath 08/29/16 16:30 09/03/16 16:29 08/30/16 19:15 Benazepril HCl (Lotensin) 40 mg DAILY ORAL 08/29/16 18:00 09/28/16 17:59 08/31/16 09:35 Ceftriaxone Sodium/Dextrose (Rocephin/D5W) 55 ml @ 110 mls/hr Q24H IVPB 08/29/16 20:00 09/05/16 19:59 08/30/16 20:27 Dextrose STAT PRN IV Hypoglycemia 08/29/16 16:30 09/28/16 16:29 Diphenhydramine HCl (Benadryl) 25 mg Q6H PRN ORAL Itching/Pruritis 08/29/16 16:30 09/28/16 16:29 Furosemide (Lasix) 40 mg DAILY ORAL 08/29/16 18:00 09/28/16 17:59 08/31/16 09:35 Heparin Sodium (Porcine) (Heparin 5000 units/ml) 5,000 units EVERY 12 HOURS SUBQ 08/29/16 21:00 09/28/16 20:59 08/31/16 09:36 Hydromorphone HCl (Dilaudid) 2 mg Q4H PRN IVP Severe Pain (Pain Scale 7-10) 08/29/16 16:30 09/05/16 16:29 Levofloxacin 100 ml @ 100 mls/hr Q24H IVPB 08/29/16 19:00 09/05/16 18:59 08/30/16 19:04 Ondansetron HCl (Zofran) 4 mg Q4H PRN IVP Nausea & Vomiting 08/29/16 16:30 09/28/16 16:29 Pantoprazole (Protonix) 40 mg DAILY ORAL 08/29/16 18:00 09/28/16 17:59 08/31/16 09:35 Polyethylene Glycol (Miralax) 17 gm BEDTIME ORAL 08/29/16 21:00 09/28/16 20:59 08/30/16 20:27 Promethazine HCl/ Codeine (Phenergan with Codeine) 5 ml Q4H PRN ORAL For Cough 08/29/16 16:45 09/28/16 16:44 08/30/16 00:37 Theophylline (Kamar-Dur) 100 mg EVERY 12 HOURS ORAL 08/29/16 21:00 09/28/16 20:59 08/31/16 09:35 Vitamin A/Vitamin D (A & D Oint) 1 applic EVERY 12 HOURS TOPIC 08/30/16 21:00 09/29/16 20:59 08/31/16 09:35 Zolpidem Tartrate (Ambien) 5 mg HSPRN PRN ORAL Insomnia 08/29/16 16:30 09/28/16 16:29 Allergies: Coded Allergies: No Known Allergies (Verified , 12/21/06) ROS Limited/Unobtainable: No Constitutional: Reports: no symptoms HEENT: Reports: no symptoms Cardiovascular: Reports: no symptoms Respiratory: Reports: no symptoms Gastrointestinal/Abdominal: Reports: abdominal pain - right flank Genitourinary: Reports: no symptoms Neurologic/Psychiatric: Reports: no symptoms Subjective 61 YO M admitted with right flank pain. Cover for Jim Lorenzo-Dr Alfonso. Await CT abdomen results. Objective Last Vital Signs Date Time Temp Pulse Resp B/P Pulse Ox O2 Delivery O2 Flow Rate FiO2 08/31/16 12:01 98.1 78 16 150/103 94 Room Air 08/30/16 19:22 21 Laboratory Tests Test 08/31/16 05:15 08/31/16 08:15 Sodium Level 140 mEQ/L (135-145) Potassium Level 4.1 mEQ/L (3.4-4.9) Chloride Level 100 mEQ/L (98-107) Carbon Dioxide Level 27 mEQ/L (20-30) Anion Gap 13 (5-15) Blood Urea Nitrogen 19 mg/dL (7-23) Creatinine 1.2 mg/dL (0.7-1.2) Estimat Glomerular Filtration Rate > 60 mL/min (>60) Glucose Level 102 mg/dL (74-106) Calcium Level 8.9 mg/dL (8.6-10.2) White Blood Count 4.6 K/UL (4.8-10.8) L Red Blood Count 5.51 M/UL (4.70-6.10) Hemoglobin 16.0 G/DL (14.2-18.0) Hematocrit 52.4 % (42.0-52.0) H Mean Corpuscular Volume 95 FL (80-99) Mean Corpuscular Hemoglobin 29.1 PG (27.0-31.0) Mean Corpuscular Hemoglobin Concent 30.6 G/DL (32.0-36.0) L Red Cell Distribution Width 13.4 % (11.6-14.8) Platelet Count 189 K/UL (150-450) Mean Platelet Volume 7.8 FL (6.5-10.1) Neutrophils (%) (Auto) 57.9 % (45.0-75.0) Lymphocytes (%) (Auto) 29.5 % (20.0-45.0) Monocytes (%) (Auto) 10.0 % (1.0-10.0) Eosinophils (%) (Auto) 1.5 % (0.0-3.0) Basophils (%) (Auto) 1.1 % (0.0-2.0) Microbiology Date/Time Source Procedure Growth Status 08/29/16 08:35 Blood Blood Culture - Preliminary NO GROWTH AFTER 48 HOURS Resulted 08/29/16 08:15 Blood Blood Culture - Preliminary NO GROWTH AFTER 48 HOURS Resulted 08/29/16 10:20 Nasal Nares MRSA Culture - Final NO METHICILLIN RESISTANT STAPH AUREUS... Complete 08/30/16 00:30 Urine,Clean Catch Urine Culture - Preliminary NO GROWTH AFTER 24 HOURS Resulted 08/29/16 10:20 Rectum VRE Culture - Final NO VANCOMYCIN RESISTANT ENTEROCOCCUS ... Complete Intake and Output 08/30/16 08/31/16 19:00 07:00 Intake Total 1800 ml 480 ml Output Total 350 ml Balance 1800 ml 130 ml Intake Oral 1800 ml 480 ml Output Urine Total 350 ml # Voids 3 4 # Bowel Movements 1 Objective General Appearance: WD/WN, no apparent distress, alert EENT: PERRL/EOMI, normal ENT inspection Neck: non-tender, normal alignment, supple, normal inspection Cardiovascular: normal peripheral pulses, normal rate, regular rhythm, no gallop/murmur, no JVD Respiratory/Chest: chest wall non-tender, lungs clear, normal breath sounds, no respiratory distress, no accessory muscle use Abdomen: normal bowel sounds, non tender, soft, no organomegaly, no mass Edema: moderate edema 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 (2) COPD (chronic obstructive pulmonary disease) Assessment & Plan: Cont duoneb. (3) Pre-diabetes (4) Right flank pain (5) Edema of both legs Assessment & Plan: Continue lasix. Await venous duplex doppler. (6) Hypertension Assessment & Plan: Cont lotensin (7) Pulmonary embolism Status: not improved MORENA DRAKE Aug 31, 2016 14:46
[2016-08-31] MEDS ORDERED: NS 275ml ONE (15:52)
[2016-08-31] MEDS ORDERED: Tubing IV Secondary IV ONE ×2 (15:52)
--- NOTE | 2016-08-31 17:02 | Diagnostic Imaging Report ---
APPROVED REPORT CPT Code: 18486 Present Symptoms Lower Extremity Edema: Bilateral Shortness of breath BILATERAL: Imaging reveals a patent deep venous system bilaterally. There is no evidence of thrombus within the femoral, popliteal or tibial segments. The greater saphenous veins are also within normal limits. Doppler indicates normal spontaneous flow within these segments.
[2016-08-31] MEDS: Miralax 17gm pkt ORAL SCH (22:33)
[2016-08-31] MEDS: cefTRIAXone 1 GM in D5W 55 ML IVPB SCH (22:33)
[2016-09-01] VITALS: BP 150/96
[2016-09-01 04:00] VITALS: BP 135/95
[2016-09-01 08:09] VITALS: BP 148/92
[2016-09-01 08:13] LABS: BASOPHILS % (AUTO) 1.6 % (0.0-2.0); EOSINOPHILS % (AUTO) 1.3 % (0.0-3.0); MEAN CORPUSCULAR HEMOGLOBIN 29.7 PG (27.0-31.0); MEAN CORPUSCULAR HGB CONC 30.7 G/DL (32.0-36.0); MEAN CORPUSCULAR VOLUME 97 FL (80-99); MEAN PLATELET VOLUME 6.9 FL (6.5-10.1); MONOCYTES % (AUTO) 8.3 % (1.0-10.0); NEUTROPHILS % (AUTO) 60.8 % (45.0-75.0); PLATELET COUNT 168 K/UL (150-450); RED BLOOD COUNT 5.08 M/UL (4.70-6.10); RED CELL DISTRIBUTION WIDTH 13.4 % (11.6-14.8); WHITE BLOOD COUNT 4.1 K/UL (4.8-10.8)
[2016-09-01] MEDS: Furosemide 40mg tab ORAL SCH (08:29)
[2016-09-01] MEDS: Theophylline ER 100mg ORAL SCH ×2 (08:30→22:27)
[2016-09-01] MEDS: Heparin 5000 units/ml inj SUBQ SCH ×2 (08:30→22:07)
[2016-09-01] MEDS: Vitamin A&D Oint 2oz Tube TOPIC SCH ×2 (08:31→22:05)
[2016-09-01 08:42] LABS: ANION GAP 18 (5-15); CALCIUM 8.9 mg/dL (8.6-10.2); CARBON DIOXIDE 23 mEQ/L (20-30); CHLORIDE 100 mEQ/L (98-107); CREATININE 1.2 mg/dL (0.7-1.2); GLOMERULAR FILTRATION RATE > 60 mL/min (>60); HEMOLYSIS 17; POTASSIUM 3.9 mEQ/L (3.4-4.9); SODIUM 141 mEQ/L (135-145)
--- NOTE | 2016-09-01 11:45 | Diagnostic Imaging Report ---
Indications: Right flank pain Technique: Continuous helical CT imaging of the abdomen and pelvis was performed with automatic exposure control both before and after intravenous administration of nonionic iodine contrast, on a Siemens sensation [address] scanner. Axial, coronal, and sagittal images were reconstructed at 5 mm slice thickness and interval. No oral contrast was administered per protocol. CTDI volume(s): 17x3, 8, 24, 16 mGy Total DLP: 2955 mGy-cm Findings: Comparison: CTA thorax 02/03/14; CT pelvis 12/21/06 Right kidney is rotated horizontally. Precontrast images demonstrate no stone in either kidney or ureter, nor within the urinary bladder. Postcontrast images demonstrate prompt, homogeneous, symmetric nephrographic enhancement of in excretion of contrast by both kidneys. Subcentimeter circumscribed low-attenuation focus present in each renal cortex. No perinephric or periureteral abnormality. Excreted contrast opacifies bilateral renal collecting systems and ureters and urinary bladder, normal in caliber and configuration, without obvious urothelial thickening/irregularity, intraluminal filling defect, stricture, dilation, obstruction, extravasation, or extrinsic mass effect. Urinary bladder demonstrates apparent mild mural thickening. Mild prominence of prostate gland. Filter in infrarenal inferior vena cava. Liver, gallbladder, pancreas, spleen, adrenal glands, seminal vesicles, remaining vascular structures, retroperitoneum, mesentery, unopacified gastrointestinal tract, remainder visualized abdominopelvic anatomy unremarkable. Pleural-based linear density right lung base. Left lung base, bilateral adjacent pleural surfaces clear. Multilevel disc marginal osteophyte formation lumbar, lower thoracic spine. Multilevel facet sclerosis and hypertrophy in lumbar spine. Chronic appearing contour deformity with subcentimeter focal lucency anterolateral aspect left 10th rib. IMPRESSION: Bilateral renal cortical subcentimeter low-attenuation foci, nonspecific, probably but not definitely cysts. No other evidence of renal or ureteral pathology Apparent mild mural thickening of urinary bladder--underdistention versus hypertrophy versus less likely chronic cystitis IVC filter, right lung base subsegmental atelectasis versus scarring Degenerative spondylosis Left hip rib deformity/lesion, may be chronic posttraumatic in nature. Underlying lytic lesion not excludable. If clinically indicated, consider nuclear medicine whole-body bone scan for further evaluation.
[2016-09-01 11:56] VITALS: BP 135/90
[2016-09-01 16:15] VITALS: BP 136/98
--- NOTE | 2016-09-01 18:07 | Internal Med Progress Note ---
Subjective Date of Service: Sep 01, 2016 Physician Name Morena Drake Attending Physician Bienvenido Alfonso MD Current Medications Medications (Trade) Dose Ordered Sig/Fabi Route PRN Reason Start Time Stop Time Status Last Admin Dose Admin Acetaminophen (Tylenol) 650 mg Q4H PRN ORAL Mild Pain/Temp > 100.5 08/29/16 16:45 09/28/16 16:44 08/30/16 00:38 Albuterol/ Ipratropium (DuoNeb 0.5-3(2.5)mg/3ml) 3 ml Q4H PRN HHN Shortness of Breath 08/29/16 16:30 09/03/16 16:29 08/30/16 19:15 Benazepril HCl (Lotensin) 40 mg DAILY ORAL 08/29/16 18:00 09/28/16 17:59 09/01/16 08:30 Ceftriaxone Sodium/Dextrose (Rocephin/D5W) 55 ml @ 110 mls/hr Q24H IVPB 08/29/16 20:00 09/05/16 19:59 08/31/16 22:33 Dextrose STAT PRN IV Hypoglycemia 08/29/16 16:30 09/28/16 16:29 Diphenhydramine HCl (Benadryl) 25 mg Q6H PRN ORAL Itching/Pruritis 08/29/16 16:30 09/28/16 16:29 Furosemide (Lasix) 40 mg DAILY ORAL 08/29/16 18:00 09/28/16 17:59 09/01/16 08:29 Heparin Sodium (Porcine) (Heparin 5000 units/ml) 5,000 units EVERY 12 HOURS SUBQ 08/29/16 21:00 09/28/16 20:59 09/01/16 08:30 Hydromorphone HCl (Dilaudid) 2 mg Q4H PRN IVP Severe Pain (Pain Scale 7-10) 08/29/16 16:30 09/05/16 16:29 08/31/16 19:33 Levofloxacin 100 ml @ 100 mls/hr Q24H IVPB 08/29/16 19:00 09/05/16 18:59 08/31/16 19:33 Ondansetron HCl (Zofran) 4 mg Q4H PRN IVP Nausea & Vomiting 08/29/16 16:30 09/28/16 16:29 08/31/16 22:33 Pantoprazole (Protonix) 40 mg DAILY ORAL 08/29/16 18:00 09/28/16 17:59 09/01/16 08:29 Polyethylene Glycol (Miralax) 17 gm BEDTIME ORAL 08/29/16 21:00 09/28/16 20:59 08/31/16 22:33 Promethazine HCl/ Codeine (Phenergan with Codeine) 5 ml Q4H PRN ORAL For Cough 08/29/16 16:45 09/28/16 16:44 08/30/16 00:37 Theophylline (Kamar-Dur) 100 mg EVERY 12 HOURS ORAL 08/29/16 21:00 09/28/16 20:59 09/01/16 08:30 Vitamin A/Vitamin D (A & D Oint) 1 applic EVERY 12 HOURS TOPIC 08/30/16 21:00 09/29/16 20:59 09/01/16 08:31 Zolpidem Tartrate (Ambien) 5 mg HSPRN PRN ORAL Insomnia 08/29/16 16:30 09/28/16 16:29 Allergies: Coded Allergies: No Known Allergies (Verified , 12/21/06) ROS Limited/Unobtainable: No Constitutional: Reports: no symptoms HEENT: Reports: no symptoms Cardiovascular: Reports: no symptoms Respiratory: Reports: no symptoms Gastrointestinal/Abdominal: Reports: abdominal pain - right flank Genitourinary: Reports: no symptoms Neurologic/Psychiatric: Reports: no symptoms Subjective 61 YO M admitted with right flank pain. Cover for Jim Lorenzo-Dr Alfonso. Objective Last Vital Signs Date Time Temp Pulse Resp B/P Pulse Ox O2 Delivery O2 Flow Rate FiO2 09/01/16 16:15 98.1 68 15 136/98 94 Room Air 08/30/16 19:22 21 Laboratory Tests Test 09/01/16 05:15 White Blood Count 4.1 K/UL (4.8-10.8) L Red Blood Count 5.08 M/UL (4.70-6.10) Hemoglobin 15.1 G/DL (14.2-18.0) Hematocrit 49.1 % (42.0-52.0) Mean Corpuscular Volume 97 FL (80-99) Mean Corpuscular Hemoglobin 29.7 PG (27.0-31.0) Mean Corpuscular Hemoglobin Concent 30.7 G/DL (32.0-36.0) L Red Cell Distribution Width 13.4 % (11.6-14.8) Platelet Count 168 K/UL (150-450) Mean Platelet Volume 6.9 FL (6.5-10.1) Neutrophils (%) (Auto) 60.8 % (45.0-75.0) Lymphocytes (%) (Auto) 28.0 % (20.0-45.0) Monocytes (%) (Auto) 8.3 % (1.0-10.0) Eosinophils (%) (Auto) 1.3 % (0.0-3.0) Basophils (%) (Auto) 1.6 % (0.0-2.0) Sodium Level 141 mEQ/L (135-145) Potassium Level 3.9 mEQ/L (3.4-4.9) Chloride Level 100 mEQ/L (98-107) Carbon Dioxide Level 23 mEQ/L (20-30) Anion Gap 18 (5-15) H Blood Urea Nitrogen 21 mg/dL (7-23) Creatinine 1.2 mg/dL (0.7-1.2) Estimat Glomerular Filtration Rate > 60 mL/min (>60) Glucose Level 169 mg/dL (74-106) H Calcium Level 8.9 mg/dL (8.6-10.2) Microbiology Date/Time Source Procedure Growth Status 08/30/16 00:30 Urine,Clean Catch Urine Culture - Final NO GROWTH AFTER 48 HOURS Complete Intake and Output 08/31/16 09/01/16 19:00 07:00 Intake Total 2100 ml 635 ml Output Total 1200 ml 350 ml Balance 900 ml 285 ml Intake Oral 2100 ml 480 ml IV Total 155 ml Output Urine Total 1200 ml 350 ml # Voids 2 # Bowel Movements 1 Objective General Appearance: WD/WN, no apparent distress, alert EENT: PERRL/EOMI, normal ENT inspection Neck: non-tender, normal alignment, supple, normal inspection Cardiovascular: normal peripheral pulses, normal rate, regular rhythm, no gallop/murmur, no JVD Respiratory/Chest: chest wall non-tender, lungs clear, normal breath sounds, no respiratory distress, no accessory muscle use Abdomen: normal bowel sounds, non tender, soft, no organomegaly, no mass Edema: moderate edema 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 (2) COPD (chronic obstructive pulmonary disease) Assessment & Plan: Cont duoneb. (3) Pre-diabetes (4) Right flank pain Assessment & Plan: CT abdomen=WNL; no renal calculi. (5) Edema of both legs Assessment & Plan: Continue lasix. Await venous duplex doppler. (6) Hypertension Assessment & Plan: Cont lotensin (7) Pulmonary embolism Status: progressing MORENA DRAKE Sep 01, 2016 18:07
[2016-09-01 20:00] VITALS: BP 147/79
--- NOTE | 2016-09-01 20:01 | Podiatric Progress Note ---
Assessment/Plan Patient Carlos Rubalcava is a 61 year old male who was admitted on Aug 29, 2016 at 08: 57 with cough and shortness of breath Problems: (1) Hyperkeratosis (2) Pruritus (3) Peripheral edema (4) Onychomycosis Assessment/Plan - Discussed pedal hygiene with patient. He is to wash bilateral feet and legs daily and apply moisturizer while avoiding interdigital areas - Monitor daily for worsening of bilateral leg edema. Negative DVT with venous duplex - Elevate legs and monitor sodium intake Subjective Procedure Performed Bilateral leg pruritic hyperkeratotic lesions Allergies: Coded Allergies: No Known Allergies (Verified , 12/21/06) Subjective Patient states that the pruritus has improved and the dry hyperkeratotic skin lesions have improved. Objective Exam Last 24 Hour Vital Signs Date Time Temp Pulse Resp B/P Pulse Ox O2 Delivery O2 Flow Rate FiO2 09/01/16 19:07 73 18 Room Air 09/01/16 16:15 98.1 68 15 136/98 94 Room Air 09/01/16 11:56 98.1 62 14 135/90 93 Room Air 09/01/16 08:30 148/92 09/01/16 08:09 98.1 79 15 148/92 99 Room Air 09/01/16 07:45 71 18 Room Air 09/01/16 04:00 96.8 61 20 135/95 90 Room Air 09/01/16 00:00 98.2 73 22 150/96 92 Room Air 08/31/16 22:22 97.5 78 20 163/92 91 Room Air 08/31/16 20:03 99.9 08/31/16 20:00 97.5 78 20 163/93 91 Room Air Laboratory Tests Test 09/01/16 05:15 White Blood Count 4.1 K/UL (4.8-10.8) L Red Blood Count 5.08 M/UL (4.70-6.10) Hemoglobin 15.1 G/DL (14.2-18.0) Hematocrit 49.1 % (42.0-52.0) Mean Corpuscular Volume 97 FL (80-99) Mean Corpuscular Hemoglobin 29.7 PG (27.0-31.0) Mean Corpuscular Hemoglobin Concent 30.7 G/DL (32.0-36.0) L Red Cell Distribution Width 13.4 % (11.6-14.8) Platelet Count 168 K/UL (150-450) Mean Platelet Volume 6.9 FL (6.5-10.1) Neutrophils (%) (Auto) 60.8 % (45.0-75.0) Lymphocytes (%) (Auto) 28.0 % (20.0-45.0) Monocytes (%) (Auto) 8.3 % (1.0-10.0) Eosinophils (%) (Auto) 1.3 % (0.0-3.0) Basophils (%) (Auto) 1.6 % (0.0-2.0) Sodium Level 141 mEQ/L (135-145) Potassium Level 3.9 mEQ/L (3.4-4.9) Chloride Level 100 mEQ/L (98-107) Carbon Dioxide Level 23 mEQ/L (20-30) Anion Gap 18 (5-15) H Blood Urea Nitrogen 21 mg/dL (7-23) Creatinine 1.2 mg/dL (0.7-1.2) Estimat Glomerular Filtration Rate > 60 mL/min (>60) Glucose Level 169 mg/dL (74-106) H Calcium Level 8.9 mg/dL (8.6-10.2) Microbiology Date/Time Source Procedure Growth Status 08/29/16 08:35 Blood Blood Culture - Preliminary NO GROWTH AFTER 48 HOURS Resulted 08/29/16 10:20 Nasal Nares MRSA Culture - Final NO METHICILLIN RESISTANT STAPH AUREUS... Complete 08/30/16 00:30 Urine,Clean Catch Urine Culture - Final NO GROWTH AFTER 48 HOURS Complete 08/29/16 10:20 Rectum VRE Culture - Final NO VANCOMYCIN RESISTANT ENTEROCOCCUS ... Complete Exam Narrative Bilateral foot and leg hyperkeratosis has improved with application of A&D ointment Dermatological Wound Assessment : Exudate Amount: None Larry Gonzalez DPM Sep 01, 2016 20:01
[2016-09-01] MEDS: cefTRIAXone 1 GM in D5W 55 ML IVPB SCH (20:10)
[2016-09-01] MEDS: Miralax 17gm pkt ORAL SCH ×2 (21:00→22:05)
[2016-09-02] VITALS: BP 136/82
[2016-09-02 04:00] VITALS: BP 140/86
[2016-09-02 07:28] LABS: BASOPHILS % (AUTO) 1.4 % (0.0-2.0); EOSINOPHILS % (AUTO) 2.8 % (0.0-3.0); MEAN CORPUSCULAR HEMOGLOBIN 29.3 PG (27.0-31.0); MEAN CORPUSCULAR HGB CONC 30.6 G/DL (32.0-36.0); MEAN CORPUSCULAR VOLUME 96 FL (80-99); MEAN PLATELET VOLUME 6.7 FL (6.5-10.1); MONOCYTES % (AUTO) 7.9 % (1.0-10.0); PLATELET COUNT 184 K/UL (150-450); RED BLOOD COUNT 5.51 M/UL (4.70-6.10); RED CELL DISTRIBUTION WIDTH 13.2 % (11.6-14.8); WHITE BLOOD COUNT 3.7 K/UL (4.8-10.8)
[2016-09-02 08:00] VITALS: BP 120/98
[2016-09-02 08:09] LABS: ANION GAP 16 (5-15); CALCIUM 9.4 mg/dL (8.6-10.2); CARBON DIOXIDE 27 mEQ/L (20-30); CHLORIDE 99 mEQ/L (98-107); CREATININE 1.1 mg/dL (0.7-1.2); GLOMERULAR FILTRATION RATE > 60 mL/min (>60); HEMOLYSIS 35; POTASSIUM 4.4 mEQ/L (3.4-4.9); SODIUM 142 mEQ/L (135-145)
--- NOTE | 2016-09-02 10:15 | Internal Med Progress Note ---
Subjective Date of Service: Sep 02, 2016 Physician Name Morena Drake Attending Physician Bienvenido Alfonso MD Current Medications Medications (Trade) Dose Ordered Sig/Fabi Route PRN Reason Start Time Stop Time Status Last Admin Dose Admin Acetaminophen (Tylenol) 650 mg Q4H PRN ORAL Mild Pain/Temp > 100.5 08/29/16 16:45 09/28/16 16:44 09/01/16 22:05 Albuterol/ Ipratropium (DuoNeb 0.5-3(2.5)mg/3ml) 3 ml Q4H PRN HHN Shortness of Breath 08/29/16 16:30 09/03/16 16:29 08/30/16 19:15 Benazepril HCl (Lotensin) 40 mg DAILY ORAL 08/29/16 18:00 09/28/16 17:59 09/01/16 08:30 Ceftriaxone Sodium/Dextrose (Rocephin/D5W) 55 ml @ 110 mls/hr Q24H IVPB 08/29/16 20:00 09/05/16 19:59 09/01/16 20:10 Dextrose STAT PRN IV Hypoglycemia 08/29/16 16:30 09/28/16 16:29 Diphenhydramine HCl (Benadryl) 25 mg Q6H PRN ORAL Itching/Pruritis 08/29/16 16:30 09/28/16 16:29 Furosemide (Lasix) 40 mg DAILY ORAL 08/29/16 18:00 09/28/16 17:59 09/01/16 08:29 Heparin Sodium (Porcine) (Heparin 5000 units/ml) 5,000 units EVERY 12 HOURS SUBQ 08/29/16 21:00 09/28/16 20:59 09/01/16 22:07 Hydromorphone HCl (Dilaudid) 2 mg Q4H PRN IVP Severe Pain (Pain Scale 7-10) 08/29/16 16:30 09/05/16 16:29 08/31/16 19:33 Levofloxacin 100 ml @ 100 mls/hr Q24H IVPB 08/29/16 19:00 09/05/16 18:59 09/01/16 18:17 Ondansetron HCl (Zofran) 4 mg Q4H PRN IVP Nausea & Vomiting 08/29/16 16:30 09/28/16 16:29 08/31/16 22:33 Pantoprazole (Protonix) 40 mg DAILY ORAL 08/29/16 18:00 09/28/16 17:59 09/01/16 08:29 Polyethylene Glycol (Miralax) 17 gm BEDTIME ORAL 08/29/16 21:00 09/28/16 20:59 08/31/16 22:33 Promethazine HCl/ Codeine (Phenergan with Codeine) 5 ml Q4H PRN ORAL For Cough 08/29/16 16:45 09/28/16 16:44 08/30/16 00:37 Theophylline (Kamar-Dur) 100 mg EVERY 12 HOURS ORAL 08/29/16 21:00 09/28/16 20:59 09/01/16 22:27 Vitamin A/Vitamin D (A & D Oint) 1 applic EVERY 12 HOURS TOPIC 08/30/16 21:00 09/29/16 20:59 09/01/16 22:05 Zolpidem Tartrate (Ambien) 5 mg HSPRN PRN ORAL Insomnia 08/29/16 16:30 09/28/16 16:29 Allergies: Coded Allergies: No Known Allergies (Verified , 12/21/06) ROS Limited/Unobtainable: No Constitutional: Reports: no symptoms HEENT: Reports: no symptoms Cardiovascular: Reports: no symptoms Respiratory: Reports: no symptoms Gastrointestinal/Abdominal: Reports: abdominal pain - right flank pain Genitourinary: Reports: no symptoms Neurologic/Psychiatric: Reports: no symptoms Subjective 61 YO M admitted with right flank pain. Cover for Jim Alfonso. Objective Last Vital Signs Date Time Temp Pulse Resp B/P Pulse Ox O2 Delivery O2 Flow Rate FiO2 09/02/16 08:00 98.8 77 20 120/98 96 Room Air 08/30/16 19:22 21 Laboratory Tests Test 09/02/16 06:20 White Blood Count 3.7 K/UL (4.8-10.8) L Red Blood Count 5.51 M/UL (4.70-6.10) Hemoglobin 16.1 G/DL (14.2-18.0) Hematocrit 52.6 % (42.0-52.0) H Mean Corpuscular Volume 96 FL (80-99) Mean Corpuscular Hemoglobin 29.3 PG (27.0-31.0) Mean Corpuscular Hemoglobin Concent 30.6 G/DL (32.0-36.0) L Red Cell Distribution Width 13.2 % (11.6-14.8) Platelet Count 184 K/UL (150-450) Mean Platelet Volume 6.7 FL (6.5-10.1) Neutrophils (%) (Auto) 49.0 % (45.0-75.0) Lymphocytes (%) (Auto) 39.0 % (20.0-45.0) Monocytes (%) (Auto) 7.9 % (1.0-10.0) Eosinophils (%) (Auto) 2.8 % (0.0-3.0) Basophils (%) (Auto) 1.4 % (0.0-2.0) Sodium Level 142 mEQ/L (135-145) Potassium Level 4.4 mEQ/L (3.4-4.9) Chloride Level 99 mEQ/L (98-107) Carbon Dioxide Level 27 mEQ/L (20-30) Anion Gap 16 (5-15) H Blood Urea Nitrogen 17 mg/dL (7-23) Creatinine 1.1 mg/dL (0.7-1.2) Estimat Glomerular Filtration Rate > 60 mL/min (>60) Glucose Level 100 mg/dL (74-106) Calcium Level 9.4 mg/dL (8.6-10.2) Intake and Output 09/01/16 09/02/16 19:00 07:00 Intake Total 1350 ml 495 ml Balance 1350 ml 495 ml Intake Oral 1350 ml 340 ml IV Total 155 ml # Voids 3 3 # Bowel Movements 1 Objective General Appearance: WD/WN, no apparent distress, alert EENT: PERRL/EOMI, normal ENT inspection Neck: non-tender, normal alignment, supple, normal inspection Cardiovascular: normal peripheral pulses, normal rate, regular rhythm, no gallop/murmur, no JVD Respiratory/Chest: chest wall non-tender, lungs clear, normal breath sounds, no respiratory distress, no accessory muscle use Abdomen: normal bowel sounds, non tender, soft, no organomegaly, no mass Edema: moderate edema 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 (2) COPD (chronic obstructive pulmonary disease) Assessment & Plan: Cont duoneb. (3) Pre-diabetes (4) Right flank pain Assessment & Plan: CT abdomen=WNL; no renal calculi. (5) Edema of both legs Assessment & Plan: Continue lasix. Venous duplex doppler=neg for DVT (6) Hypertension Assessment & Plan: Cont lotensin (7) Pulmonary embolism Assessment & Plan: S/P IVC filter Status: progressing Assessment/Plan Discharge planning: residential facility vs home health MORENA DRAKE Sep 02, 2016 10:15
[2016-09-02] MEDS: Furosemide 40mg tab ORAL SCH (10:26)
[2016-09-02] MEDS: Heparin 5000 units/ml inj SUBQ SCH ×2 (10:33→22:17)
[2016-09-02] MEDS: Vitamin A&D Oint 2oz Tube TOPIC SCH ×2 (10:34→21:00)
[2016-09-02] MEDS: Theophylline ER 100mg ORAL SCH ×2 (10:47→22:16)
[2016-09-02 12:00] VITALS: BP 104/88
[2016-09-02 16:00] VITALS: BP 128/78
--- NOTE | 2016-09-02 18:22 | Pulmonology Progress Note ---
Assessment/Plan Problems: (1) COPD exacerbation (2) Hypertension (3) Weakness (4) Peripheral edema (5) History of DVT (deep vein thrombosis) Assessment/Plan improving slowly continue lasix, check electrolytes titratrate fi92 to sat of 92% social service Subjective ROS Limited/Unobtainable: No Interval Events: less cough, urinating a lot, swelling of legs decreasing Allergies: Coded Allergies: No Known Allergies (Verified , 12/21/06) Objective Last 24 Hour Vital Signs Date Time Temp Pulse Resp B/P Pulse Ox O2 Delivery O2 Flow Rate FiO2 09/02/16 16:00 98.2 75 20 128/78 99 Room Air 09/02/16 12:00 98.0 70 20 104/88 96 Room Air 09/02/16 10:24 120/98 09/02/16 08:00 98.8 77 20 120/98 96 Room Air 09/02/16 07:51 77 18 Room Air 09/02/16 04:00 97.3 66 20 140/86 93 Room Air 09/02/16 00:00 98.1 69 20 136/82 95 Room Air 09/01/16 23:04 97.3 09/01/16 20:00 97.3 75 20 147/79 96 Room Air 09/01/16 19:07 73 18 Room Air Intake and Output 09/01/16 09/02/16 19:00 07:00 Intake Total 1350 ml 495 ml Balance 1350 ml 495 ml Intake Oral 1350 ml 340 ml IV Total 155 ml # Voids 3 3 # Bowel Movements 1 General Appearance: WD/WN HEENT: normocephalic, atraumatic Respiratory/Chest: chest wall non-tender, lungs clear Abdomen: normal bowel sounds, soft, non tender 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, no motor/sensory deficits Laboratory Tests 09/02/16 06:20: White Blood Count 3.7L, Red Blood Count 5.51, Hemoglobin 16.1, Hematocrit 52.6H , Mean Corpuscular Volume 96, Mean Corpuscular Hemoglobin 29.3, Mean Corpuscular Hemoglobin Concent 30.6L, Red Cell Distribution Width 13.2, Platelet Count 184, Mean Platelet Volume 6.7, Neutrophils (%) (Auto) 49.0, Lymphocytes (%) (Auto) 39.0, Monocytes (%) (Auto) 7.9, Eosinophils (%) (Auto) 2.8, Basophils (%) (Auto) 1.4, Sodium Level 142, Potassium Level 4.4, Chloride Level 99, Carbon Dioxide Level 27, Anion Gap 16H, Blood Urea Nitrogen 17, Creatinine 1.1, Estimat Glomerular Filtration Rate > 60, Glucose Level 100, Calcium Level 9.4 Current Medications Medications (Trade) Dose Ordered Sig/Fabi Route PRN Reason Start Time Stop Time Status Last Admin Dose Admin Acetaminophen (Tylenol) 650 mg Q4H PRN ORAL Mild Pain/Temp > 100.5 08/29/16 16:45 09/28/16 16:44 09/01/16 22:05 Albuterol/ Ipratropium (DuoNeb 0.5-3(2.5)mg/3ml) 3 ml Q4H PRN HHN Shortness of Breath 08/29/16 16:30 09/03/16 16:29 08/30/16 19:15 Benazepril HCl (Lotensin) 40 mg DAILY ORAL 08/29/16 18:00 09/28/16 17:59 09/02/16 10:24 Ceftriaxone Sodium/Dextrose (Rocephin/D5W) 55 ml @ 110 mls/hr Q24H IVPB 08/29/16 20:00 09/05/16 19:59 09/01/16 20:10 Dextrose STAT PRN IV Hypoglycemia 08/29/16 16:30 09/28/16 16:29 Diphenhydramine HCl (Benadryl) 25 mg Q6H PRN ORAL Itching/Pruritis 08/29/16 16:30 09/28/16 16:29 Furosemide (Lasix) 40 mg DAILY ORAL 08/29/16 18:00 09/28/16 17:59 09/02/16 10:26 Heparin Sodium (Porcine) (Heparin 5000 units/ml) 5,000 units EVERY 12 HOURS SUBQ 08/29/16 21:00 09/28/16 20:59 09/02/16 10:33 Hydromorphone HCl (Dilaudid) 2 mg Q4H PRN IVP Severe Pain (Pain Scale 7-10) 08/29/16 16:30 09/05/16 16:29 08/31/16 19:33 Levofloxacin 100 ml @ 100 mls/hr Q24H IVPB 08/29/16 19:00 09/05/16 18:59 09/02/16 18:18 Ondansetron HCl (Zofran) 4 mg Q4H PRN IVP Nausea & Vomiting 08/29/16 16:30 09/28/16 16:29 08/31/16 22:33 Pantoprazole (Protonix) 40 mg DAILY ORAL 08/29/16 18:00 09/28/16 17:59 09/02/16 10:24 Polyethylene Glycol (Miralax) 17 gm BEDTIME ORAL 08/29/16 21:00 09/28/16 20:59 08/31/16 22:33 Promethazine HCl/ Codeine (Phenergan with Codeine) 5 ml Q4H PRN ORAL For Cough 08/29/16 16:45 09/28/16 16:44 08/30/16 00:37 Theophylline (Kamar-Dur) 100 mg EVERY 12 HOURS ORAL 08/29/16 21:00 09/28/16 20:59 09/02/16 10:47 Vitamin A/Vitamin D (A & D Oint) 1 applic EVERY 12 HOURS TOPIC 08/30/16 21:00 09/29/16 20:59 09/02/16 10:34 Zolpidem Tartrate (Ambien) 5 mg HSPRN PRN ORAL Insomnia 08/29/16 16:30 09/28/16 16:29 HELEN MURRAY Sep 02, 2016 18:22
[2016-09-02 20:00] VITALS: BP 120/88
[2016-09-02] MEDS: Miralax 17gm pkt ORAL SCH (22:16)
[2016-09-02] MEDS: cefTRIAXone 1 GM in D5W 55 ML IVPB SCH (22:18)
[2016-09-03] VITALS: BP 129/82
[2016-09-03 04:00] VITALS: BP 132/65
[2016-09-03 07:30] LABS: BASOPHILS % (AUTO) 1.3 % (0.0-2.0); LYMPHOCYTES % (AUTO) 33.5 % (20.0-45.0); MEAN CORPUSCULAR HEMOGLOBIN 29.9 PG (27.0-31.0); MEAN CORPUSCULAR HGB CONC 31.8 G/DL (32.0-36.0); MEAN CORPUSCULAR VOLUME 94 FL (80-99); MEAN PLATELET VOLUME 7.3 FL (6.5-10.1); MONOCYTES % (AUTO) 9.9 % (1.0-10.0); NEUTROPHILS % (AUTO) 52.3 % (45.0-75.0); PLATELET COUNT 183 K/UL (150-450); RED BLOOD COUNT 5.19 M/UL (4.70-6.10); RED CELL DISTRIBUTION WIDTH 13.4 % (11.6-14.8)
[2016-09-03 08:00] VITALS: BP 127/63
[2016-09-03 08:25] LABS: ANION GAP 15 (5-15); CALCIUM 9.2 mg/dL (8.6-10.2); CARBON DIOXIDE 25 mEQ/L (20-30); CHLORIDE 98 mEQ/L (98-107); CREATININE 1.2 mg/dL (0.7-1.2); GLOMERULAR FILTRATION RATE > 60 mL/min (>60); HEMOLYSIS 31; POTASSIUM 4.5 mEQ/L (3.4-4.9); SODIUM 138 mEQ/L (135-145)
[2016-09-03] MEDS: Theophylline ER 100mg ORAL SCH ×2 (09:24→21:05)
[2016-09-03] MEDS: Furosemide 40mg tab ORAL SCH (09:24)
[2016-09-03] MEDS: Heparin 5000 units/ml inj SUBQ SCH ×2 (09:28→21:05)
[2016-09-03] MEDS: Vitamin A&D Oint 2oz Tube TOPIC SCH ×2 (09:30→21:05)
[2016-09-03 12:00] VITALS: BP 141/91
[2016-09-03 16:00] VITALS: BP 136/70
--- NOTE | 2016-09-03 17:04 | Internal Med Progress Note ---
Subjective Date of Service: Sep 03, 2016 Physician Name DrakeMorena Attending Physician Bienvenido Alfonso MD Current Medications Medications (Trade) Dose Ordered Sig/Fabi Route PRN Reason Start Time Stop Time Status Last Admin Dose Admin Acetaminophen (Tylenol) 650 mg Q4H PRN ORAL Mild Pain/Temp > 100.5 08/29/16 16:45 09/28/16 16:44 09/01/16 22:05 Benazepril HCl (Lotensin) 40 mg DAILY ORAL 08/29/16 18:00 09/28/16 17:59 09/03/16 09:25 Ceftriaxone Sodium/Dextrose (Rocephin/D5W) 55 ml @ 110 mls/hr Q24H IVPB 08/29/16 20:00 09/05/16 19:59 09/02/16 22:18 Dextrose STAT PRN IV Hypoglycemia 08/29/16 16:30 09/28/16 16:29 Diphenhydramine HCl (Benadryl) 25 mg Q6H PRN ORAL Itching/Pruritis 08/29/16 16:30 09/28/16 16:29 Furosemide (Lasix) 40 mg DAILY ORAL 08/29/16 18:00 09/28/16 17:59 09/03/16 09:24 Heparin Sodium (Porcine) (Heparin 5000 units/ml) 5,000 units EVERY 12 HOURS SUBQ 08/29/16 21:00 09/28/16 20:59 09/03/16 09:28 Hydromorphone HCl (Dilaudid) 2 mg Q4H PRN IVP Severe Pain (Pain Scale 7-10) 08/29/16 16:30 09/05/16 16:29 08/31/16 19:33 Levofloxacin 100 ml @ 100 mls/hr Q24H IVPB 08/29/16 19:00 09/05/16 18:59 09/02/16 18:18 Ondansetron HCl (Zofran) 4 mg Q4H PRN IVP Nausea & Vomiting 08/29/16 16:30 09/28/16 16:29 08/31/16 22:33 Pantoprazole (Protonix) 40 mg DAILY ORAL 08/29/16 18:00 09/28/16 17:59 09/03/16 09:25 Polyethylene Glycol (Miralax) 17 gm BEDTIME ORAL 08/29/16 21:00 09/28/16 20:59 09/02/16 22:16 Promethazine HCl/ Codeine (Phenergan with Codeine) 5 ml Q4H PRN ORAL For Cough 08/29/16 16:45 09/28/16 16:44 08/30/16 00:37 Theophylline (Kamar-Dur) 100 mg EVERY 12 HOURS ORAL 08/29/16 21:00 09/28/16 20:59 09/03/16 09:24 Vitamin A/Vitamin D (A & D Oint) 1 applic EVERY 12 HOURS TOPIC 08/30/16 21:00 09/29/16 20:59 09/03/16 09:30 Zolpidem Tartrate (Ambien) 5 mg HSPRN PRN ORAL Insomnia 08/29/16 16:30 09/28/16 16:29 Allergies: Coded Allergies: No Known Allergies (Verified , 12/21/06) ROS Limited/Unobtainable: No Constitutional: Reports: no symptoms HEENT: Reports: no symptoms Cardiovascular: Reports: no symptoms Respiratory: Reports: no symptoms Gastrointestinal/Abdominal: Reports: no symptoms Genitourinary: Reports: flank pain Neurologic/Psychiatric: Reports: no symptoms Subjective 61 YO M admitted with right flank pain. Cover for Int Bj-Dr Alfonso. Objective Last Vital Signs Date Time Temp Pulse Resp B/P Pulse Ox O2 Delivery O2 Flow Rate FiO2 09/03/16 16:00 97.7 73 20 136/70 95 Room Air 09/03/16 07:51 21 Laboratory Tests Test 09/03/16 06:00 White Blood Count 4.0 K/UL (4.8-10.8) L Red Blood Count 5.19 M/UL (4.70-6.10) Hemoglobin 15.5 G/DL (14.2-18.0) Hematocrit 48.7 % (42.0-52.0) Mean Corpuscular Volume 94 FL (80-99) Mean Corpuscular Hemoglobin 29.9 PG (27.0-31.0) Mean Corpuscular Hemoglobin Concent 31.8 G/DL (32.0-36.0) L Red Cell Distribution Width 13.4 % (11.6-14.8) Platelet Count 183 K/UL (150-450) Mean Platelet Volume 7.3 FL (6.5-10.1) Neutrophils (%) (Auto) 52.3 % (45.0-75.0) Lymphocytes (%) (Auto) 33.5 % (20.0-45.0) Monocytes (%) (Auto) 9.9 % (1.0-10.0) Eosinophils (%) (Auto) 3.0 % (0.0-3.0) Basophils (%) (Auto) 1.3 % (0.0-2.0) Sodium Level 138 mEQ/L (135-145) Potassium Level 4.5 mEQ/L (3.4-4.9) Chloride Level 98 mEQ/L (98-107) Carbon Dioxide Level 25 mEQ/L (20-30) Anion Gap 15 (5-15) Blood Urea Nitrogen 18 mg/dL (7-23) Creatinine 1.2 mg/dL (0.7-1.2) Estimat Glomerular Filtration Rate > 60 mL/min (>60) Glucose Level 113 mg/dL (74-106) H Calcium Level 9.2 mg/dL (8.6-10.2) Intake and Output 09/02/16 09/03/16 19:00 07:00 Intake Total 1400 ml 240 ml Balance 1400 ml 240 ml Intake Oral 1400 ml 240 ml # Voids 2 # Bowel Movements 2 Objective General Appearance: WD/WN, no apparent distress, alert EENT: PERRL/EOMI, normal ENT inspection Neck: non-tender, normal alignment, supple, normal inspection Cardiovascular: normal peripheral pulses, normal rate, regular rhythm, no gallop/murmur, no JVD Respiratory/Chest: chest wall non-tender, lungs clear, normal breath sounds, no respiratory distress, no accessory muscle use Abdomen: normal bowel sounds, non tender, soft, no organomegaly, no mass Edema: moderate edema 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 (2) COPD (chronic obstructive pulmonary disease) Assessment & Plan: Cont duoneb. (3) Pre-diabetes (4) Right flank pain Assessment & Plan: CT abdomen=WNL; no renal calculi. (5) Edema of both legs Assessment & Plan: Continue lasix. Venous duplex doppler=neg for DVT (6) Hypertension Assessment & Plan: Cont lotensin (7) Pulmonary embolism Assessment & Plan: S/P IVC filter Status: stable Assessment/Plan Discharge planning: nursing home facility vs home health MORENA DRAKE Sep 03, 2016 17:04
[2016-09-03] MEDS: Promethazine/Codeine 5ml UD ORAL PRN (18:41)
[2016-09-03 19:00] VITALS: BP 117/44
[2016-09-03] MEDS: Miralax 17gm pkt ORAL SCH ×2 (21:00→21:04)
[2016-09-03] MEDS: cefTRIAXone 1 GM in D5W 55 ML IVPB SCH (21:04)
--- NOTE | 2016-09-03 23:46 | Pulmonology Progress Note ---
Assessment/Plan Problems: (1) COPD exacerbation (2) Hypertension (3) Weakness (4) Peripheral edema (5) History of DVT (deep vein thrombosis) Assessment/Plan improving slowly , check electrolytes titratrate fi92 to sat of 92% social service dc planning in [place] Subjective ROS Limited/Unobtainable: No Constitutional: Reports: no symptoms HEENT: Repors: no symptoms Respiratory: Reports: no symptoms Allergies: Coded Allergies: No Known Allergies (Verified , 12/21/06) Objective Last 24 Hour Vital Signs Date Time Temp Pulse Resp B/P Pulse Ox O2 Delivery O2 Flow Rate FiO2 09/03/16 19:20 78 18 Room Air 21 09/03/16 19:00 97.3 86 20 117/44 92 Room Air 09/03/16 16:00 97.7 73 20 136/70 95 Room Air 09/03/16 12:00 97.2 77 20 141/91 97 Room Air 09/03/16 09:25 127/63 09/03/16 08:00 97.0 74 20 127/63 97 09/03/16 07:51 74 18 Room Air 21 09/03/16 04:00 98.2 62 20 132/65 95 Room Air 09/03/16 00:00 97.9 57 20 129/82 97 Room Air Intake and Output 09/02/16 09/03/16 19:00 07:00 Intake Total 1400 ml 240 ml Balance 1400 ml 240 ml Intake Oral 1400 ml 240 ml # Voids 2 # Bowel Movements 2 General Appearance: WD/WN HEENT: normocephalic, atraumatic Respiratory/Chest: chest wall non-tender, lungs clear Cardiovascular: normal peripheral pulses, normal rate Abdomen: normal bowel sounds, soft, non tender Laboratory Tests 09/03/16 06:00: White Blood Count 4.0L, Red Blood Count 5.19, Hemoglobin 15.5, Hematocrit 48.7, Mean Corpuscular Volume 94, Mean Corpuscular Hemoglobin 29.9, Mean Corpuscular Hemoglobin Concent 31.8L, Red Cell Distribution Width 13.4, Platelet Count 183, Mean Platelet Volume 7.3, Neutrophils (%) (Auto) 52.3, Lymphocytes (%) (Auto) 33.5, Monocytes (%) (Auto) 9.9, Eosinophils (%) (Auto) 3.0, Basophils (%) (Auto ) 1.3, Sodium Level 138, Potassium Level 4.5, Chloride Level 98, Carbon Dioxide Level 25, Anion Gap 15, Blood Urea Nitrogen 18, Creatinine 1.2, Estimat Glomerular Filtration Rate > 60, Glucose Level 113H, Calcium Level 9.2 Current Medications Medications (Trade) Dose Ordered Sig/Fabi Route PRN Reason Start Time Stop Time Status Last Admin Dose Admin Acetaminophen (Tylenol) 650 mg Q4H PRN ORAL Mild Pain/Temp > 100.5 08/29/16 16:45 09/28/16 16:44 09/01/16 22:05 Benazepril HCl (Lotensin) 40 mg DAILY ORAL 08/29/16 18:00 09/28/16 17:59 09/03/16 09:25 Ceftriaxone Sodium/Dextrose (Rocephin/D5W) 55 ml @ 110 mls/hr Q24H IVPB 08/29/16 20:00 09/05/16 19:59 09/03/16 21:04 Dextrose STAT PRN IV Hypoglycemia 08/29/16 16:30 09/28/16 16:29 Diphenhydramine HCl (Benadryl) 25 mg Q6H PRN ORAL Itching/Pruritis 08/29/16 16:30 09/28/16 16:29 Furosemide (Lasix) 40 mg DAILY ORAL 08/29/16 18:00 09/28/16 17:59 09/03/16 09:24 Heparin Sodium (Porcine) (Heparin 5000 units/ml) 5,000 units EVERY 12 HOURS SUBQ 08/29/16 21:00 09/28/16 20:59 09/03/16 21:05 Hydromorphone HCl (Dilaudid) 2 mg Q4H PRN IVP Severe Pain (Pain Scale 7-10) 08/29/16 16:30 09/05/16 16:29 08/31/16 19:33 Levofloxacin 100 ml @ 100 mls/hr Q24H IVPB 08/29/16 19:00 09/05/16 18:59 09/03/16 18:40 Ondansetron HCl (Zofran) 4 mg Q4H PRN IVP Nausea & Vomiting 08/29/16 16:30 09/28/16 16:29 08/31/16 22:33 Pantoprazole (Protonix) 40 mg DAILY ORAL 08/29/16 18:00 09/28/16 17:59 09/03/16 09:25 Polyethylene Glycol (Miralax) 17 gm BEDTIME ORAL 08/29/16 21:00 09/28/16 20:59 09/02/16 22:16 Promethazine HCl/ Codeine (Phenergan with Codeine) 5 ml Q4H PRN ORAL For Cough 08/29/16 16:45 09/28/16 16:44 09/03/16 18:41 Theophylline (Kamar-Dur) 100 mg EVERY 12 HOURS ORAL 08/29/16 21:00 09/28/16 20:59 09/03/16 21:05 Vitamin A/Vitamin D (A & D Oint) 1 applic EVERY 12 HOURS TOPIC 08/30/16 21:00 09/29/16 20:59 09/03/16 21:05 Zolpidem Tartrate (Ambien) 5 mg HSPRN PRN ORAL Insomnia 08/29/16 16:30 09/28/16 16:29 HELEN MURRAY Sep 03, 2016 23:46
[2016-09-04] VITALS (7 sets, daily range): BP systolic 113–159; BP diastolic 64–97
[2016-09-04 07:19] LABS: BASOPHILS % (AUTO) 1.3 % (0.0-2.0); EOSINOPHILS % (AUTO) 2.8 % (0.0-3.0); LYMPHOCYTES % (AUTO) 38.5 % (20.0-45.0); MEAN CORPUSCULAR HEMOGLOBIN 29.6 PG (27.0-31.0); MEAN CORPUSCULAR HGB CONC 31.5 G/DL (32.0-36.0); MEAN CORPUSCULAR VOLUME 94 FL (80-99); MEAN PLATELET VOLUME 7.5 FL (6.5-10.1); MONOCYTES % (AUTO) 7.5 % (1.0-10.0); PLATELET COUNT 207 K/UL (150-450); RED BLOOD COUNT 5.39 M/UL (4.70-6.10); RED CELL DISTRIBUTION WIDTH 13.2 % (11.6-14.8); WHITE BLOOD COUNT 4.4 K/UL (4.8-10.8)
[2016-09-04 07:26] LABS: ANION GAP 12 (5-15); CALCIUM 9.4 mg/dL (8.6-10.2); CARBON DIOXIDE 28 mEQ/L (20-30); CHLORIDE 98 mEQ/L (98-107); CREATININE 1.2 mg/dL (0.7-1.2); GLOMERULAR FILTRATION RATE > 60 mL/min (>60); HEMOLYSIS 3; POTASSIUM 4.2 mEQ/L (3.4-4.9); SODIUM 138 mEQ/L (135-145)
[2016-09-04] MEDS: Furosemide 40mg tab ORAL SCH (09:15)
[2016-09-04] MEDS: Theophylline ER 100mg ORAL SCH ×2 (09:15→22:32)
[2016-09-04] MEDS: Vitamin A&D Oint 2oz Tube TOPIC SCH ×2 (09:16→21:00)
[2016-09-04] MEDS: Promethazine/Codeine 5ml UD ORAL PRN (09:17)
[2016-09-04] MEDS: Heparin 5000 units/ml inj SUBQ SCH ×2 (09:17→21:18)
--- NOTE | 2016-09-04 12:21 | Internal Med Progress Note ---
Subjective Date of Service: Sep 04, 2016 Physician Name DrakeMorena Attending Physician Bienvenido Alfonso MD Current Medications Medications (Trade) Dose Ordered Sig/Fabi Route PRN Reason Start Time Stop Time Status Last Admin Dose Admin Acetaminophen (Tylenol) 650 mg Q4H PRN ORAL Mild Pain/Temp > 100.5 08/29/16 16:45 09/28/16 16:44 09/01/16 22:05 Benazepril HCl (Lotensin) 40 mg DAILY ORAL 08/29/16 18:00 09/28/16 17:59 09/04/16 09:15 Ceftriaxone Sodium/Dextrose (Rocephin/D5W) 55 ml @ 110 mls/hr Q24H IVPB 08/29/16 20:00 09/05/16 19:59 09/03/16 21:04 Dextrose STAT PRN IV Hypoglycemia 08/29/16 16:30 09/28/16 16:29 Diphenhydramine HCl (Benadryl) 25 mg Q6H PRN ORAL Itching/Pruritis 08/29/16 16:30 09/28/16 16:29 Furosemide (Lasix) 40 mg DAILY ORAL 08/29/16 18:00 09/28/16 17:59 09/04/16 09:15 Heparin Sodium (Porcine) (Heparin 5000 units/ml) 5,000 units EVERY 12 HOURS SUBQ 08/29/16 21:00 09/28/16 20:59 09/04/16 09:17 Hydromorphone HCl (Dilaudid) 2 mg Q4H PRN IVP Severe Pain (Pain Scale 7-10) 08/29/16 16:30 09/05/16 16:29 08/31/16 19:33 Levofloxacin 100 ml @ 100 mls/hr Q24H IVPB 08/29/16 19:00 09/05/16 18:59 09/03/16 18:40 Ondansetron HCl (Zofran) 4 mg Q4H PRN IVP Nausea & Vomiting 08/29/16 16:30 09/28/16 16:29 08/31/16 22:33 Pantoprazole (Protonix) 40 mg DAILY ORAL 08/29/16 18:00 09/28/16 17:59 09/04/16 09:15 Polyethylene Glycol (Miralax) 17 gm BEDTIME ORAL 08/29/16 21:00 09/28/16 20:59 09/02/16 22:16 Promethazine HCl/ Codeine (Phenergan with Codeine) 5 ml Q4H PRN ORAL For Cough 08/29/16 16:45 09/28/16 16:44 09/04/16 09:17 Theophylline (Kamar-Dur) 100 mg EVERY 12 HOURS ORAL 08/29/16 21:00 09/28/16 20:59 09/04/16 09:15 Vitamin A/Vitamin D (A & D Oint) 1 applic EVERY 12 HOURS TOPIC 08/30/16 21:00 09/29/16 20:59 09/04/16 09:16 Zolpidem Tartrate (Ambien) 5 mg HSPRN PRN ORAL Insomnia 08/29/16 16:30 09/28/16 16:29 Allergies: Coded Allergies: No Known Allergies (Verified , 12/21/06) ROS Limited/Unobtainable: No Constitutional: Reports: no symptoms HEENT: Reports: no symptoms Cardiovascular: Reports: no symptoms Respiratory: Reports: no symptoms Gastrointestinal/Abdominal: Reports: no symptoms Genitourinary: Reports: no symptoms Neurologic/Psychiatric: Reports: no symptoms Subjective 61 YO M admitted with right flank pain. Cover for Int Bj-Dr Alfonso. Objective Last Vital Signs Date Time Temp Pulse Resp B/P Pulse Ox O2 Delivery O2 Flow Rate FiO2 09/04/16 09:15 123/71 09/04/16 08:00 97.0 78 18 95 Room Air 09/04/16 07:50 21 Laboratory Tests Test 09/04/16 05:10 White Blood Count 4.4 K/UL (4.8-10.8) L Red Blood Count 5.39 M/UL (4.70-6.10) Hemoglobin 15.9 G/DL (14.2-18.0) Hematocrit 50.6 % (42.0-52.0) Mean Corpuscular Volume 94 FL (80-99) Mean Corpuscular Hemoglobin 29.6 PG (27.0-31.0) Mean Corpuscular Hemoglobin Concent 31.5 G/DL (32.0-36.0) L Red Cell Distribution Width 13.2 % (11.6-14.8) Platelet Count 207 K/UL (150-450) Mean Platelet Volume 7.5 FL (6.5-10.1) Neutrophils (%) (Auto) 50.0 % (45.0-75.0) Lymphocytes (%) (Auto) 38.5 % (20.0-45.0) Monocytes (%) (Auto) 7.5 % (1.0-10.0) Eosinophils (%) (Auto) 2.8 % (0.0-3.0) Basophils (%) (Auto) 1.3 % (0.0-2.0) Sodium Level 138 mEQ/L (135-145) Potassium Level 4.2 mEQ/L (3.4-4.9) Chloride Level 98 mEQ/L (98-107) Carbon Dioxide Level 28 mEQ/L (20-30) Anion Gap 12 (5-15) Blood Urea Nitrogen 19 mg/dL (7-23) Creatinine 1.2 mg/dL (0.7-1.2) Estimat Glomerular Filtration Rate > 60 mL/min (>60) Glucose Level 103 mg/dL (74-106) Calcium Level 9.4 mg/dL (8.6-10.2) Intake and Output 09/03/16 09/04/16 19:00 07:00 Intake Total 500 ml 240 ml Balance 500 ml 240 ml Intake Oral 500 ml 240 ml # Voids 1 6 # Bowel Movements 1 Objective General Appearance: WD/WN, no apparent distress, alert EENT: PERRL/EOMI, normal ENT inspection Neck: non-tender, normal alignment, supple, normal inspection Cardiovascular: normal peripheral pulses, normal rate, regular rhythm, no gallop/murmur, no JVD Respiratory/Chest: chest wall non-tender, lungs clear, normal breath sounds, no respiratory distress, no accessory muscle use Abdomen: normal bowel sounds, non tender, soft, no organomegaly, no mass Edema: moderate edema Neurologic: electrical unit rebuilder II-XII grossly normal, no motor/sensory deficits Skin: normal pigmentation, warm/dry Assessment/Plan Problem List: (1) Onychomycosis Assessment & Plan: See podiatry note. (2) COPD (chronic obstructive pulmonary disease) Assessment & Plan: Cont duoneb. (3) Pre-diabetes (4) Right flank pain Assessment & Plan: CT abdomen=WNL; no renal calculi. (5) Edema of both legs Assessment & Plan: Continue lasix. Venous duplex doppler=neg for DVT (6) Hypertension Assessment & Plan: Cont lotensin (7) Pulmonary embolism Assessment & Plan: S/P IVC filter Status: progressing Assessment/Plan Discharge planning: halfway facility vs home health MORENA DRAKE Sep 04, 2016 12:21
--- NOTE | 2016-09-04 18:06 | Pulmonology Progress Note ---
Assessment/Plan Problems: (1) COPD exacerbation (2) Hypertension (3) Weakness (4) Peripheral edema (5) History of DVT (deep vein thrombosis) Assessment/Plan improving slowly titratrate fi92 to sat of 92% social service dc planning Subjective ROS Limited/Unobtainable: No Allergies: Coded Allergies: No Known Allergies (Verified , 12/21/06) Objective Last 24 Hour Vital Signs Date Time Temp Pulse Resp B/P Pulse Ox O2 Delivery O2 Flow Rate FiO2 09/04/16 16:00 98.1 70 20 113/77 96 Room Air 09/04/16 12:00 98.1 75 18 118/64 97 Room Air 09/04/16 09:15 123/71 09/04/16 08:00 97.0 78 18 123/71 95 Room Air 09/04/16 07:50 75 18 Room Air 21 09/04/16 04:00 96.6 79 20 154/86 94 Room Air 09/04/16 00:00 96.4 84 18 159/87 95 Room Air 09/03/16 19:20 78 18 Room Air 21 09/03/16 19:00 97.3 86 20 117/44 92 Room Air Intake and Output 09/03/16 09/04/16 19:00 07:00 Intake Total 500 ml 240 ml Balance 500 ml 240 ml Intake Oral 500 ml 240 ml # Voids 1 6 # Bowel Movements 1 General Appearance: WD/WN HEENT: normocephalic, anicteric Respiratory/Chest: chest wall non-tender, lungs clear Cardiovascular: normal peripheral pulses, normal rate Abdomen: normal bowel sounds, soft, non tender Extremities: no cyanosis Skin: no ulcers Neurologic/Psychiatric: agriculture consultant II-XII grossly normal, alert Lymphatic: no neck adenopathy Laboratory Tests 09/04/16 05:10: White Blood Count 4.4L, Red Blood Count 5.39, Hemoglobin 15.9, Hematocrit 50.6, Mean Corpuscular Volume 94, Mean Corpuscular Hemoglobin 29.6, Mean Corpuscular Hemoglobin Concent 31.5L, Red Cell Distribution Width 13.2, Platelet Count 207, Mean Platelet Volume 7.5, Neutrophils (%) (Auto) 50.0, Lymphocytes (%) (Auto) 38.5, Monocytes (%) (Auto) 7.5, Eosinophils (%) (Auto) 2.8, Basophils (%) (Auto ) 1.3, Sodium Level 138, Potassium Level 4.2, Chloride Level 98, Carbon Dioxide Level 28, Anion Gap 12, Blood Urea Nitrogen 19, Creatinine 1.2, Estimat Glomerular Filtration Rate > 60, Glucose Level 103, Calcium Level 9.4 Current Medications Medications (Trade) Dose Ordered Sig/Fabi Route PRN Reason Start Time Stop Time Status Last Admin Dose Admin Acetaminophen (Tylenol) 650 mg Q4H PRN ORAL Mild Pain/Temp > 100.5 08/29/16 16:45 09/28/16 16:44 09/01/16 22:05 Benazepril HCl (Lotensin) 40 mg DAILY ORAL 08/29/16 18:00 09/28/16 17:59 09/04/16 09:15 Ceftriaxone Sodium/Dextrose (Rocephin/D5W) 55 ml @ 110 mls/hr Q24H IVPB 08/29/16 20:00 09/04/16 23:59 09/03/16 21:04 Dextrose STAT PRN IV Hypoglycemia 08/29/16 16:30 09/28/16 16:29 Diphenhydramine HCl (Benadryl) 25 mg Q6H PRN ORAL Itching/Pruritis 08/29/16 16:30 09/28/16 16:29 Furosemide (Lasix) 40 mg DAILY ORAL 08/29/16 18:00 09/28/16 17:59 09/04/16 09:15 Heparin Sodium (Porcine) (Heparin 5000 units/ml) 5,000 units EVERY 12 HOURS SUBQ 08/29/16 21:00 09/28/16 20:59 09/04/16 09:17 Hydromorphone HCl (Dilaudid) 2 mg Q4H PRN IVP Severe Pain (Pain Scale 7-10) 08/29/16 16:30 09/05/16 16:29 08/31/16 19:33 Levofloxacin 100 ml @ 100 mls/hr Q24H IVPB 08/29/16 19:00 09/04/16 23:59 09/03/16 18:40 Ondansetron HCl (Zofran) 4 mg Q4H PRN IVP Nausea & Vomiting 08/29/16 16:30 09/28/16 16:29 08/31/16 22:33 Pantoprazole (Protonix) 40 mg DAILY ORAL 08/29/16 18:00 09/28/16 17:59 09/04/16 09:15 Polyethylene Glycol (Miralax) 17 gm BEDTIME ORAL 08/29/16 21:00 09/28/16 20:59 09/02/16 22:16 Promethazine HCl/ Codeine (Phenergan with Codeine) 5 ml Q4H PRN ORAL For Cough 08/29/16 16:45 09/28/16 16:44 09/04/16 09:17 Theophylline (Kamar-Dur) 100 mg EVERY 12 HOURS ORAL 08/29/16 21:00 09/28/16 20:59 09/04/16 09:15 Vitamin A/Vitamin D (A & D Oint) 1 applic EVERY 12 HOURS TOPIC 08/30/16 21:00 09/29/16 20:59 09/04/16 09:16 Zolpidem Tartrate (Ambien) 5 mg HSPRN PRN ORAL Insomnia 08/29/16 16:30 09/28/16 16:29 HELEN MURRAY Sep 04, 2016 18:06
[2016-09-04] MEDS: cefTRIAXone 1 GM in D5W 55 ML IVPB SCH (21:17)
[2016-09-04] MEDS: Miralax 17gm pkt ORAL SCH (21:19)
[2016-09-05] VITALS: BP 129/92
[2016-09-05 04:00] VITALS: BP 125/75
[2016-09-05 07:54] VITALS: BP 127/83
[2016-09-05 08:35] LABS: MEAN CORPUSCULAR HEMOGLOBIN 29.3 PG (27.0-31.0); MEAN CORPUSCULAR HGB CONC 31.2 G/DL (32.0-36.0); MEAN CORPUSCULAR VOLUME 94 FL (80-99); MEAN PLATELET VOLUME 7.6 FL (6.5-10.1); PLATELET COUNT 180 K/UL (150-450); RED BLOOD COUNT 5.31 M/UL (4.70-6.10); RED CELL DISTRIBUTION WIDTH 13.9 % (11.6-14.8); WHITE BLOOD COUNT 3.4 K/UL (4.8-10.8)
[2016-09-05] MEDS: Furosemide 40mg tab ORAL SCH (10:02)
[2016-09-05] MEDS: Theophylline ER 100mg ORAL SCH (10:03)
[2016-09-05] MEDS: Vitamin A&D Oint 2oz Tube TOPIC SCH (10:04)
[2016-09-05] MEDS: Heparin 5000 units/ml inj SUBQ SCH (10:07)
[2016-09-05 11:23] VITALS: BP 125/70
[2016-09-05 11:35] LABS: BAND NEUTROPHILS % (MANUAL) 0 % (0-8); BASOPHILS % (MANUAL) 0 % (0-2); EOSINOPHILS % (MANUAL) 1 % (0-3); LYMPHOCYTES % (MANUAL) 32 % (20-45); NEUTROPHILS % (MANUAL) 53 % (45-75); PLATELET ESTIMATE ADEQUATE; PLATELET MORPHOLOGY NORMAL; TOTAL CELLS COUNTED 100
[2016-09-05] MEDS ORDERED: NS 275ml ONE (14:14)
[2016-09-05] MEDS ORDERED: Tubing IV Secondary IV ONE (14:14)
--- NOTE | 2016-09-05 15:08 | Discharge Summary ---
Discharge Summary Hospital Course Date of Admission Aug 29, 2016 at 08:57 Date of Discharge Sep 05, 2016 at 14:15 Admitting Diagnosis WEAKNESS,copd exacebration HPI Carlos Rubalcava is a 61 year old male who was admitted on Aug 29, 2016 at 08: 57 for Weakness,Chronic Obstructive Pulmonary Disease Hospital Course The patient was seen and examined at bedside and all new and available data was reviewed in the patients chart. Last 24 Hour Vital Signs Date Time Temp Pulse Resp B/P Pulse Ox O2 Delivery O2 Flow Rate FiO2 09/05/16 11:23 97.9 67 18 125/70 96 Room Air 09/05/16 10:02 127/83 09/05/16 07:54 97.7 77 19 127/83 96 Room Air 09/05/16 07:43 72 18 Room Air 21 09/05/16 04:00 95.9 74 20 125/75 98 Room Air 09/05/16 00:00 97.3 69 20 129/92 95 Room Air 09/04/16 19:09 70 20 Room Air 21 09/04/16 19:00 97.5 77 20 115/84 95 Room Air 09/04/16 16:00 98.1 70 20 113/77 96 Room Air General Appearance: WD/WN, no apparent distress, alert EENT: PERRL/EOMI, normal ENT inspection Neck: non-tender, normal alignment, supple, normal inspection Cardiovascular: normal peripheral pulses, normal rate, regular rhythm, no murmur Respiratory/Chest: chest wall non-tender, lungs clear, normal breath sounds, no respiratory distress, Abdomen: normal bowel sounds, non tender, soft, Edema: moderate edema Neurologic: picc nurse II-XII grossly normal, no motor/sensory deficits Skin: normal pigmentation, warm/dry Plan : DC to SNF today (Patient was seen earlier today. Signature timestamp does not reflect patient encounter time) Bienvenido Alfonso MD Discharge Discharge Disposition Patient was discharged to Discharge Diagnoses: Bienvenido Alfonso MD Sep 05, 2016 15:08
--- NOTE | 2016-09-05 15:38 | Pulmonology Progress Note ---
Assessment/Plan Problems: (1) COPD exacerbation (2) Hypertension (3) Weakness (4) Peripheral edema (5) History of DVT (deep vein thrombosis) Assessment/Plan improving slowly titratrate fi92 to sat of 92% social service dc planning Subjective ROS Limited/Unobtainable: No Constitutional: Reports: no symptoms HEENT: Repors: no symptoms Allergies: Coded Allergies: No Known Allergies (Verified , 12/21/06) Objective Last 24 Hour Vital Signs Date Time Temp Pulse Resp B/P Pulse Ox O2 Delivery O2 Flow Rate FiO2 09/05/16 11:23 97.9 67 18 125/70 96 Room Air 09/05/16 10:02 127/83 09/05/16 07:54 97.7 77 19 127/83 96 Room Air 09/05/16 07:43 72 18 Room Air 21 09/05/16 04:00 95.9 74 20 125/75 98 Room Air 09/05/16 00:00 97.3 69 20 129/92 95 Room Air 09/04/16 19:09 70 20 Room Air 21 09/04/16 19:00 97.5 77 20 115/84 95 Room Air 09/04/16 16:00 98.1 70 20 113/77 96 Room Air Intake and Output 09/04/16 09/05/16 19:00 07:00 Intake Total 640 ml 240 ml Balance 640 ml 240 ml Intake Oral 640 ml 240 ml # Voids 4 6 # Bowel Movements 2 General Appearance: WD/WN HEENT: normocephalic Respiratory/Chest: chest wall non-tender Cardiovascular: normal peripheral pulses Abdomen: normal bowel sounds Genitourinary: normal external genitalia Extremities: no clubbing Skin: no lesions Laboratory Tests 09/05/16 08:05: White Blood Count 3.4L, Red Blood Count 5.31, Hemoglobin 15.5, Hematocrit 49.9, Mean Corpuscular Volume 94, Mean Corpuscular Hemoglobin 29.3, Mean Corpuscular Hemoglobin Concent 31.2L, Red Cell Distribution Width 13.9, Platelet Count 180, Mean Platelet Volume 7.6, Neutrophils (%) (Auto) , Lymphocytes (%) (Auto) , Monocytes (%) (Auto) , Eosinophils (%) (Auto) , Basophils (%) (Auto) , Differential Total Cells Counted 100, Neutrophils % (Manual) 53, Lymphocytes % ( Manual) 32, Monocytes % (Manual) 14H, Eosinophils % (Manual) 1, Basophils % ( Manual) 0, Band Neutrophils 0, Platelet Estimate Adequate, Platelet Morphology Normal, Red Blood Cell Morphology Normal HELEN MURRAY Sep 05, 2016 15:38
--- NOTE | 2016-09-12 15:37 | Discharge Summary ---
Discharge Summary Hospital Course Date of Admission Aug 29, 2016 at 08:57 Date of Discharge Sep 05, 2016 at 14:15 Admitting Diagnosis WEAKNESS,copd exacebration HPI Carlos Rubalcava is a 61 year old male who was admitted on Aug 29, 2016 at 08: 57 for Weakness,Chronic Obstructive Pulmonary Disease Consultations 1. Larry Gonzalez MD 2. Franco Ibrahim MD Procedures Debridement toenails bilaterally Hospital Course The patient is a 61-year-old male, presents with complaint of right lower back pain. The patient is homeless. The patient states he sleeps on a patio of a friend. 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 The patient denies trauma. The patient denies fevers or chills. The patient denies hematuria or dysuria. The patient was brought in by EMS. He was admitted for right flank pain to rule out pyelonephritis. He came in with dry foot and elongated painful toes. Dr Gonzalez was consulted and performed debridement of toe nails bilaterally. Dr Ibrahim was consulted and patient was given respiratory treatment, chest physiotherapy, oxygen and started on IV antibiotics. However, full treatment was not carried out as patient signed AMA FINAL DIAGNOSES: (1) Acute COPD exacerbation (2) Hypertension (3) Weakness (4) Peripheral edema (5) History of DVT and Pulmonary embolism S/P IVC filter (6) Onychomycosis (7) Pre-diabetes I was assigned to complete a DC summary on this account. I was not involved in the patient's management. --Dev Jade NP. Discharge Discharge Disposition Patient was discharged to SNF/Subacute Facility(03) Discharge Diagnoses: Rosenda Jade NP Sep 12, 2016 15:37
== END 2016-09-05 14:15 | disposition left against medical advice (07) | DRG 140 ==
LOC: EDBD 07:56 → EMR 08:22 → 4E 08:57 → EDBEDREQ 09:05
PROC: 0HBRXZZ Excision of Toe Nail, External Approach (ICD-10-PCS; principal; 2016-08-29)
PROC: 0HBRXZZ Excision of Toe Nail, External Approach (ICD-10-PCS; 2016-08-29)
DX: J44.1 Chronic obstructive pulmonary disease with (acute) exacerbation (principal); I10 Essential (primary) hypertension; R60.9 Edema, unspecified; B35.1 Tinea unguium; R73.03 Prediabetes; L85.9 Epidermal thickening, unspecified; Z59.0 Homelessness; Z23 Encounter for immunization; Z86.718 Personal history of other venous thrombosis and embolism; Z86.711 Personal history of pulmonary embolism
CPT/HCPCS: 36415; 71010; 74178; 80048; 80053; 81003; 82550; 83036; 83690; 84484; 85007; 85025; 85610; 85730; 87040; 87081; 87086; 90732; 93005; 93970; 94640; 94664; J2405; J7620; Q2036

== ENCOUNTER 2017-03-16 21:18 | Emergency (ER) | payer OTHER ==
[~2017-03-16] VITALS: Ht 175.3 cm; Wt 90.7 kg
[2017-03-16] MEDS ORDERED: DOCUSATE SODIU100 MG ORAL (21:42)
[2017-03-16] MEDS ORDERED: FUROSEMIDE40 MG ORAL ×2 (21:42→21:52)
[2017-03-16] MEDS ORDERED: ATORVASTATIN CA80 MG ORAL (21:42)
[2017-03-16] MEDS ORDERED: ASPIRIN EC325 MG ORAL (21:42)
[2017-03-16] MEDS ORDERED: CARVEDILOL6.25 MG ORAL (21:42)
[2017-03-16] MEDS ORDERED: LISINOPRIL20 MG ORAL ×2 (21:42→21:52)
[2017-03-16] MEDS ORDERED: ASPIRIN-LOW81 MG ORAL (21:52)
[2017-03-16 21:58] VITALS: BP 132/84
[2017-03-16 21:59] VITALS: BP 129/83
--- NOTE | 2017-03-16 22:11 | Emergency Room Report ---
History of Present Illness General Chief Complaint: Medication Refill Source: Patient Present Illness HPI [id number] [facility] patient here for med refill "because my friend is here in the ER anyway." Has multiple medications requesting refill of. Is only out of Lisinopril and Lasix. Endorses HTN, HLD, CHF Had a "stroke" at [facility] recently Denies chest pain, SOB, headache, abd pain, leg swelling, pain Allergies: Coded Allergies: No Known Allergies (Verified , 12/21/06) Patient History Past Medical History: other - see hpi Past Surgical History: none Pertinent Family History: none Social History: Denies: alcohol use, drug use, smoking Immunizations: UTD Reviewed Nursing Documentation: PMH: Agreed, PSxH: Agreed Nursing Documentation-PMH Past Medical History: No History, Except For Hx Cardiac Problems: Yes Hx Hypertension: Yes Hx COPD: Yes Hx Cancer: No Hx Gastrointestinal Problems: No Hx Neurological Problems: No Hx Weakness: Yes Review of Systems All Other Systems: negative except mentioned in HPI Physical Exam Sp02 EP Interpretation: reviewed, normal General Appearance: normal inspection, well appearing, no apparent distress, alert, GCS 15, non-toxic Head: normocephalic, atraumatic Eyes: bilateral eye EOMI, bilateral eye PERRL ENT: normal ENT inspection, hearing grossly normal, normal voice Neck: normal inspection, full range of motion, supple, no bony tend Respiratory: normal inspection, lungs clear, normal breath sounds, no respiratory distress, no retraction, no accessory muscle use, no wheezing, speaking full sentences Cardiovascular #1: regular rate, rhythm, no edema Gastrointestinal: normal inspection, normal bowel sounds, non tender, soft, no guarding, no hernia Genitourinary: no CVA tenderness Musculoskeletal: normal inspection, back normal, normal range of motion, Michelle' s Sign negative Neurologic: normal inspection, alert, oriented x3, responsive, performance reporter III-XII nml as tested, motor strength/tone normal, speech normal Psychiatric: normal inspection, judgement/insight normal, mood/affect normal Skin: normal inspection, normal color, no rash Medical Decision Making Diagnostic Impression: Primary Impression: Encounter for medication refill ER Course Medication refill request - VSS. Afebrile - Not hypertensive. - Not in CHF exacerbation - Has enough Carvedilol - I am apprehensive to refill Rx's for patient for whom I'm not the PMD. I am concerned about Re-Rx'ing additional HTN meds for someone with normal BP here in the ED. - Patient states he does have not a PMD and is difficult to followup with a primary care doctor - In shared decision making, I'll re-Rx one week's supply of Lisinopril and Lasix, the 2 meds he is out of, and asked him to return to ER when I am working next weekend for a recheck. - Patient has difficulty making it to PMD's yet when he is leaving here, he says he is "going to [employer] to get something in my stomach" before coming back to ER to meet his friend. Status: improved Disposition: HOME, SELF-CARE Condition: Improved Scripts Aspirin (Aspirin EC) 81 Mg Tablet. 81 MG ORAL DAILY for 7 Days, #7 TAB Prov: KINGSTON COMBS M.D. 03/16/17 Furosemide* (LASIX*) 40 Mg Tablet 40 MG ORAL DAILY for 7 Days, #7 TAB Prov: KINGSTON COMBS M.D. 03/16/17 Lisinopril (LISINOPRIL*) 20 Mg Tablet 20 MG ORAL DAILY for 7 Days, #7 TAB Prov: KINGSTON COMBS M.D. 03/16/17 Patient Instructions: Medicine Refill at the Emergency Department Additional Instructions: - Take your meds as prescribed for 1 week. - Return here to ER on Thursday 03/22 6am-2pm or 03/23 2pm-10pm for recheck with ER doctor KINGSTON COMBS M.D. Mar 16, 2017 22:11
== END 2017-03-16 22:00 | disposition home or self-care (01) ==
LOC: EMR 21:30
DX: Z76.0 Encounter for issue of repeat prescription (principal); I10 Essential (primary) hypertension; J44.9 Chronic obstructive pulmonary disease, unspecified; I50.9 Heart failure, unspecified
CPT/HCPCS: 99284

== ENCOUNTER 2017-03-23 12:18 | Emergency (ER) | payer OTHER ==
[~2017-03-23] VITALS: Ht 177.8 cm; Wt 90.7 kg
[~2017-03-23 12:18] MED LIST changes: +ASPIRIN EC325 MG ORAL; +ASPIRIN-LOW81 MG ORAL; +ATORVASTATIN CA80 MG ORAL; +CARVEDILOL6.25 MG ORAL; +DOCUSATE SODIU100 MG ORAL; +LISINOPRIL20 MG ORAL
--- NOTE | 2017-03-23 12:37 | Emergency Room Report ---
History of Present Illness General Chief Complaint: General Complaint Source: Patient Present Illness HPI 62 YO Male presents to ED for follow up after being evaluated at [facility] 3 weeks ago for stroke. pt. reports symptoms were dizziness and imbalance which have for the most part resolved. pt. denies new symptoms or changes in character of his symptoms. pt. reports hx of COPD, Cardiac, HTN, and hyperlipidemia. pt. denies BRAR, nausea, vomiting, weakness. Pt. states he was told to follow up, but does not know where. Denies CP, Palpitations, LOC, AMS, dizziness, Changes in Vision, Sensation, paresthesias, or a sudden severe headache. Pt also requests additional medication refills as he has not followed up with PMD from previous visit at this ED. Allergies: Coded Allergies: No Known Allergies (Verified , 12/21/06) Patient History Past Medical History: see triage record Past Surgical History: none Pertinent Family History: none Reviewed Nursing Documentation: PMH: Agreed, PSxH: Agreed Nursing Documentation-PMH Hx Cardiac Problems: Yes Hx Hypertension: Yes Hx COPD: Yes Hx Cancer: No Hx Gastrointestinal Problems: No Hx Neurological Problems: No Hx Cerebrovascular Accident: Yes Hx Weakness: Yes Review of Systems All Other Systems: negative except mentioned in HPI Physical Exam Vital Signs Date Time Temp Pulse Resp B/P Pulse Ox O2 Delivery O2 Flow Rate FiO2 03/23/17 12:28 98.1 82 16 188/72 96 Room Air Sp02 EP Interpretation: reviewed, normal General Appearance: no apparent distress, alert, GCS 15, non-toxic Head: normocephalic, atraumatic Eyes: bilateral eye PERRL, bilateral eye normal inspection ENT: hearing grossly normal, normal pharynx, no angioedema, normal voice Neck: full range of motion, supple/symm/no masses Respiratory: lungs clear, normal breath sounds, no wheezing, speaking full sentences Cardiovascular #1: regular rate, rhythm, no edema Musculoskeletal: back normal, gait/station normal, normal range of motion, non- tender Neurologic: alert, oriented x3, responsive, motor strength/tone normal, sensory intact, cerebellar normal, normal gait - with cane, pt. has hx of left knee arthritis, speech normal, no pronator, other - negative hoffmans, equal vp biology strength bilaterally, no weakness Psychiatric: judgement/insight normal, memory normal, mood/affect normal Skin: normal color, no rash, warm/dry, well hydrated Medical Decision Making PA Attestation Dr. ring is my supervising Physician whom patient management has been discussed with. Diagnostic Impression: Primary Impression: Encounter for medical screening examination Additional Impressions: Encounter for medication refill Non compliance with medical treatment ER Course 62 YO Male presents to ED for follow up after being evaluated at [facility] 3 weeks ago for stroke. pt. reports symptoms were dizziness and imbalance which have for the most part resolved. pt. denies new symptoms or changes in character of his symptoms. pt. reports hx of COPD, Cardiac, HTN, and hyperlipidemia. pt. denies BRAR, nausea, vomiting, weakness. Pt. states he was told to follow up, but does not know where. Denies CP, Palpitations, LOC, AMS, dizziness, Changes in Vision, Sensation, paresthesias, or a sudden severe headache. Pt also requests additional medication refills as he has not followed up with PMD from previous visit at this ED. Ddx considered but are not limited to residual deficits, cerebellar stroke, follow up non-compliance, CVA, CHF, aneurysm just to name a few. Vital signs: are WNL, pt. is afebrile H&PE are most consistent with normal medical screening exam, and need for follow up resources following ED D/C from [facility] 3 weeks ago for neurological complaint. ORDERS: none required at this time, the diagnosis is clinical ED INTERVENTIONS: None required at this time. -d/w pt. proper follow up and that he will need Neurologist evaluation. pt. was given list of resources for free/reduced cost healthcare clinic. I do not suspect an emergent condition at this time. with current presentation pt. is stable for close outpatient follow up. D/w pt. to return to ED with worsening or new symptoms. - Pt. Demonstrates non-compliance with discharge treatment plans, and non- compliance with follow up instructions. review of pt. chart shows he has come here earlier this month for the same medication refills, was given a limited quantity and d/c with instructions to follow up with PMD. for which pt. did not comply with. d/w pt. the importance of establishing himself with a pcp, or primary care clinic, that for his safety frequent ED visits for medication refills are not advised. DISCHARGE: At this time pt. is stable for d/c to home. Will provide printed patient care instructions, and any necessary prescriptions. Care plan and follow up instructions have been discussed with the patient prior to discharge. Last Vital Signs Date Time Temp Pulse Resp B/P Pulse Ox O2 Delivery O2 Flow Rate FiO2 03/23/17 12:28 98.1 82 16 188/72 96 Room Air Disposition: HOME, SELF-CARE Condition: Stable Scripts Furosemide* (LASIX*) 40 Mg Tablet 40 MG ORAL DAILY for 7 Days, #7 TAB Prov: Francheska Carr 03/23/17 Aspirin* (ASPIR 81*) 81 Mg Tablet.dr 81 MG ORAL DAILY for 7 Days, #7 TAB Prov: Francheska Carr 03/23/17 Lisinopril (LISINOPRIL*) 20 Mg Tablet 20 MG ORAL DAILY for 7 Days, #7 TAB Prov: Francheska Carr 03/23/17 Patient Instructions: Medical Screening Exam Additional Instructions: Take previously prescribed medications as directed. Follow up with a Primary Care Provider in 3-5 days, even if your symptoms have resolved. --Please review list of primary care clinics, if you do not already have a primary care provider - Neurology Evaluation is recommended need to have referral given by primary care provider. Return sooner to ED if new symptoms occur, or current symptoms become worse. - Please note that this Emergency Department Report was dictated using Mercarigen[employer] counselor technology software, occasionally this can lead to erroneous entry secondary to interpretation by the dictation equipment. Francheska Carr Mar 23, 2017 12:37
[2017-03-23 12:48] VITALS: BP 169/75
[2017-03-23 13:07] VITALS: BP 169/75
[2017-03-23] MEDS ORDERED: LISINOPRIL20 MG ORAL (13:09)
[2017-03-23] MEDS ORDERED: ASPIR 8181 MG ORAL (13:09)
[2017-03-23] MEDS ORDERED: FUROSEMIDE40 MG ORAL (13:09)
== END 2017-03-23 13:14 | disposition home or self-care (01) ==
LOC: EMR 13:01
DX: R42 Dizziness and giddiness (principal); Z76.0 Encounter for issue of repeat prescription; Z91.14 Patient's other noncompliance with medication regimen; Z86.73 Personal history of transient ischemic attack (TIA), and cerebral infarction without residual deficits; J44.9 Chronic obstructive pulmonary disease, unspecified; I10 Essential (primary) hypertension; M17.12 Unilateral primary osteoarthritis, left knee
CPT/HCPCS: 99284

== ENCOUNTER 2017-06-14 08:08 | Inpatient (IN) | payer OTHER ==
[~2017-06-14] VITALS: Ht 170.2 cm; Wt 99.8 kg
[2017-06-14] VITALS (7 sets, daily range): BP systolic 144–178; BP diastolic 88–103
[~2017-06-14 08:08] MED LIST changes: +ASPIR 8181 MG ORAL
--- NOTE | 2017-06-14 08:28 | Emergency Room Report ---
History of Present Illness General Chief Complaint: Generalized Weakness Source: Patient, Medical Record Present Illness HPI Patient 62-year-old male who presented after increased right-sided weakness. Patient reports having symptoms for the past 2 days. The patient had prior history of CVA. He reports having off of his medications which include medications for COPD as well as blood pressure and diuretics. The patient states that he has been unable to followup with his primary care physician. Patient was dropped off by family member.Patient denies any vomiting. He reports having increased difficulty with numbness and weakness to his right upper and lower extremity. The patient had some similar symptoms in the past after prior CVA. patient stated he had fallen multiple times over the past 2 days. Allergies: Coded Allergies: No Known Allergies (Verified , 12/21/06) Patient History Past Medical History: see triage record Reviewed Nursing Documentation: PMH: Agreed, PSxH: Agreed Nursing Documentation-PMH Past Medical History: No History, Except For Hx Cardiac Problems: Yes Hx Hypertension: Yes Hx COPD: Yes Hx Diabetes: Yes - "Pre diabetes" Hx Cancer: No Hx Gastrointestinal Problems: No Hx Dialysis: No History Of Psychiatric Problem: No Hx Neurological Problems: No Hx Cerebrovascular Accident: Yes Hx Weakness: Yes Review of Systems All Other Systems: negative except mentioned in HPI Physical Exam Vital Signs Date Time Temp Pulse Resp B/P (MAP) Pulse Ox O2 Delivery O2 Flow Rate FiO2 06/14/17 08:17 98.4 76 15 163/91 97 Room Air Sp02 EP Interpretation: reviewed, normal General Appearance: normal inspection, well appearing, no apparent distress, alert, GCS 15, Chronically Ill Head: atraumatic ENT: normal ENT inspection, hearing grossly normal, normal voice Neck: normal inspection, full range of motion, supple, no bony tend Respiratory: normal inspection, lungs clear, normal breath sounds, no respiratory distress, no retraction, no wheezing Cardiovascular #1: regular rate, rhythm, no edema Gastrointestinal: normal inspection, normal bowel sounds, non tender, soft, no guarding, no hernia Genitourinary: no CVA tenderness Musculoskeletal: normal inspection, back normal, normal range of motion Neurologic: normal inspection, alert, responsive, other - slurred speech, right side upper and lower extremity weakness Psychiatric: normal inspection, judgement/insight normal, mood/affect normal Skin: normal inspection, normal color, no rash Medical Decision Making Diagnostic Impression: Primary Impression: CVA (cerebral vascular accident) Additional Impression: Hypertension ER Course Patient presented for generalized weakness. Differential diagnosis included was not limited to CVA, anemia, urinary tract infection, electrolyte abnormality , hypothyroidism, myocardial infarction, myasthenia gravis, dehydration, among others. Because of complexity of patient's case laboratory testing and imaging studies were ordered.The due to patient's new weakness CT the head was ordered. CT the head read by radiology showed multiple lacunar infarcts bilateral caudate nuclei bilateral thalami areas of low density in the central jose likely representing ischemic change Labs Test 06/14/17 08:35 Sodium Level 143 MMOL/L (136-145) Potassium Level 3.8 MMOL/L (3.5-5.1) Chloride Level 108 MMOL/L (98-107) Carbon Dioxide Level 27 MMOL/L (21-32) Anion Gap 8 mmol/L (5-15) Blood Urea Nitrogen 18 mg/dL (7-18) Creatinine 1.1 MG/DL (0.55-1.30) Estimat Glomerular Filtration Rate > 60 mL/min (>60) Glucose Level 107 MG/DL (74-106) Calcium Level 9.0 MG/DL (8.5-10.1) Total Bilirubin 0.4 MG/DL (0.2-1.0) Aspartate Amino Transf (AST/SGOT) 20 U/L (15-37) Alanine Aminotransferase (ALT/SGPT) 20 U/L (12-78) Alkaline Phosphatase 79 U/L (46-116) Total Protein 6.8 G/DL (6.4-8.2) Albumin 3.8 G/DL (3.4-5.0) Globulin 3.0 g/dL Albumin/Globulin Ratio 1.3 (1.0-2.7) Triglycerides Level 40 MG/DL (0-200) Cholesterol Level 153 MG/DL (< 200) LDL Cholesterol 75 mg/dL (<100) HDL Cholesterol 69 MG/DL (40-60) Cholesterol/HDL Ratio 2.2 (3.3-4.4) Serum Alcohol < 3 mg/dL EKG Diagnostic Results Rate: normal Rhythm: NSR ST Segments: no acute changes Last Vital Signs Date Time Temp Pulse Resp B/P (MAP) Pulse Ox O2 Delivery O2 Flow Rate FiO2 06/14/17 08:17 98.4 76 15 163/91 97 Room Air Status: unchanged Disposition: ADMITTED INPATIENT Condition: Serious Laith Holliday Jun 14, 2017 08:28
--- NOTE | 2017-06-14 08:55 | Diagnostic Imaging Report ---
Indication: Altered mental status Technique: Continuous helical CT scanning of the head was performed without intravenous contrast material. Axial and coronal 5 mm sections were generated. Dose: Total Dose Length Product - DLP [address] Dose Index - CTDIvol(s) 70.38 mGy. Comparison: None Findings: The ventricles and sulci are normal. There is some periventricular low density. Focal areas of low density are noted in the caudate nuclei bilaterally as well as the lateral thalami. Focal area of low density also noted in the mid jose. There is no shift of midline structures. No abnormal extra-axial fluid collections are noted. There is no evidence of intracerebral bleeding. No other abnormal high or low density areas are noted within the brain. Impression: Multiple lacunar infarcts in the bilateral caudate nuclei and bilateral thalami. The acuity is uncertain. Periventricular low density. This may be consistent with chronic small vessel white matter ischemic change. Areas of low density in the central jose, likely representing ischemic change. The CT scanner at [facility] is accredited by the [employer] and the scans are performed using protocols designed to limit radiation exposure to as low as reasonably achievable to attain images of sufficient resolution adequate for diagnostic evaluation.
[2017-06-14 09:25] LABS: ALANINE AMINOTRANSFERASE 20 U/L (12-78); ALBUMIN 3.8 G/DL (3.4-5.0); ALBUMIN/GLOBULIN RATIO 1.3 (1.0-2.7); ALKALINE PHOSPHATASE 79 U/L (46-116); ANION GAP 8 mmol/L (5-15); ASPARTATE AMINO TRANSFERASE 20 U/L (15-37); BILIRUBIN,TOTAL 0.4 MG/DL (0.2-1.0); BLOOD UREA NITROGEN 18 mg/dL (7-18); CARBON DIOXIDE 27 MMOL/L (21-32); CHLORIDE 108 MMOL/L (98-107); CHOLESTEROL 153 MG/DL (< 200); CREATININE 1.1 MG/DL (0.55-1.30); HDL CHOLESTEROL 69 MG/DL (40-60); POTASSIUM 3.8 MMOL/L (3.5-5.1); SODIUM 143 MMOL/L (136-145); TRIGLYCERIDES 40 MG/DL (0-200)
[2017-06-14] MEDS ORDERED: blood thinner (09:53)
[2017-06-14 10:05] LABS: BASOPHILS % (AUTO) 1.8 % (0.0-2.0); EOSINOPHILS % (AUTO) 1.9 % (0.0-3.0); HEMATOCRIT 46.1 % (42.0-52.0); LYMPHOCYTES % (AUTO) 26.5 % (20.0-45.0); MEAN CORPUSCULAR VOLUME 98 FL (80-99); MONOCYTES % (AUTO) 7.8 % (1.0-10.0); NEUTROPHILS % (AUTO) 62.1 % (45.0-75.0); PLATELET COUNT 181 K/UL (150-450); RED BLOOD COUNT 4.71 M/UL (4.70-6.10); RED CELL DISTRIBUTION WIDTH 12.9 % (11.6-14.8); WHITE BLOOD COUNT 4.5 K/UL (4.8-10.8)
--- NOTE | 2017-06-14 10:08 | Diagnostic Imaging Report ---
Indication: PAIN. Technique: XRAY CHEST 1 V. Comparison: 08/29/16 Findings: The heart is normal in size. The lungs are clear. No pleural fluid. There is atherosclerotic change of the aorta. The bones are unremarkable. Impression: Atherosclerotic change. Otherwise negative chest.
--- NOTE | 2017-06-14 14:06 | Consultation ---
History of Present Illness General Date patient seen: Jun 14, 2017 Time patient seen: 13:00 Chief Complaint: Generalized Weakness Referring physician: dr Alfonso Reason for Consultation: inpatient management Present Illness HPI 62-year-old male with PMH of CVA, COPD, HTN , PE, hx of TB, s/p Rx 7 yrs ago presented with right-sided weakness for the past 2 days. Numbness and weakness RUE and RLE reported similar symptoms after previous CVA reported multipel falls for the past 2 days due to weakness and numbness of the right cell tender helper patient reported not taking medications for COPD as well as blood pressure medications and diuretics. The patient stated that he was unable to followup with his primary care physician. workup in ED revealed unremarkable labs VSS, BP elevated 163/[address] head with evidence of multiple lacunar infarcts in the bilateral caudate nuclei and bilateral thalami. The acuity was uncertain. patient was admitted fro further management Allergies: Coded Allergies: No Known Allergies (Verified , 12/21/06) Medication History Scheduled Aspirin* (Aspir-Low*), 81 MG PO DAILY, (Reported) Atorvastatin Calcium* (Lipitor*), 80 MG ORAL BEDTIME, (Reported) Carvedilol* (Carvedilol*), 6.25 MG ORAL EVERY 12 HOURS, (Reported) Chlorthalidone* (Chlorthalidone*), 50 MG ORAL DAILY, (Reported) Furosemide* (Lasix*), 40 MG ORAL TWICE A DAY, (Reported) Lisinopril (Lisinopril*), 20 MG ORAL DAILY, (Reported) Discontinued Medications Acetaminophen With Codeine (T#3) (Tylenol #3 Tab*), 1 TAB ORAL Q8H PRN for For Pain Discontinued Reason: Pt stopped taking med Albuterol Sulfate* (Albuterol Sulfate Hhn*), 2.5 MG HHN Q6H, (Reported) Discontinued Reason: Pt had allergic rxn Albuterol Sulfate* (Albuterol Sulfate Mdi*), 2 PUFF INH Q6H Discontinued Reason: Pt stopped taking med Aspirin (Aspirin EC), 81 MG ORAL DAILY Discontinued Reason: Pt stopped taking med Aspirin* (Aspirin Ec*), 325 MG ORAL DAILY, (Reported) Discontinued Reason: Pt stopped taking med Aspirin* (Aspir 81*), 81 MG ORAL DAILY Discontinued Reason: Pt stopped taking med Benazepril Hcl* (Benazepril Hcl*), 20 MG ORAL DAILY Discontinued Reason: Pt stopped taking med Benazepril Hcl* (Benazepril Hcl*), 20 MG ORAL EVERY 12 HOURS Discontinued Reason: Pt stopped taking med Docusate Sodium* (Docusate Sodium*), 100 MG ORAL TWICE A DAY, (Reported) Discontinued Reason: Pt stopped taking med Furosemide* (Lasix*), 40 MG ORAL DAILY Discontinued Reason: Pt stopped taking med Furosemide* (Lasix*), 40 MG ORAL DAILY Discontinued Reason: Pt stopped taking med Furosemide* (Lasix*), 40 MG ORAL DAILY Discontinued Reason: Pt stopped taking med Ibuprofen* (Motrin*), 600 MG ORAL Q8H PRN for For Pain Discontinued Reason: Pt stopped taking med Lisinopril (Lisinopril*), 20 MG ORAL DAILY Discontinued Reason: Pt stopped taking med Lisinopril (Lisinopril*), 20 MG ORAL DAILY Discontinued Reason: Therapy completed Mometasone/Formoterol (Dulera 100 Mcg/5 Mcg Inhaler), 2 PUFFS INH EVERY 12 HOURS , (Reported) Discontinued Reason: Pt stopped taking med Prednisone* (Prednisone*), 60 MG ORAL DAILY Discontinued Reason: Therapy completed Tiotropium [place]* (Spiriva*), 1 PUFF INH DAILY, (Reported) Discontinued Reason: Pt stopped taking med Patient History History Provided By: Patient Healthcare decision maker N Resuscitation status Advanced Directive on File Past Medical/Surgical History Past Medical/Surgical History: (1) Pulmonary embolism (2) Hypertension (3) Pre-diabetes (4) History of DVT (deep vein thrombosis) (5) COPD (chronic obstructive pulmonary disease) (6) Hypertension (7) CVA (cerebral vascular accident) Review of Systems Constitutional: Reports: weakness Eye: Reports: no symptoms ENT: Reports: no symptoms Respiratory: Reports: other - COPD, hx of TB s/p rx 7 yrs ago Cardiovascular: Reports: no symptoms, other - HTN Gastrointestinal: Reports: constipation Genitourinary: Reports: no symptoms Musculoskeletal: Reports: see HPI, other Endocrine: Reports: other - prediabetes Hematologic/Lymphatic: Reports: blood clots - jx of DVT, PE Physical Exam General Appearance: WD/WN, no apparent distress, alert Lines, tubes and drains: peripheral HEENT: normocephalic, atraumatic, anicteric, mucous membranes moist, PERRL Neck: normal alignment, supple Respiratory/Chest: lungs clear, no respiratory distress, no accessory muscle use Cardiovascular/Chest: normal rate - SR on tele , regular rhythm Abdomen: normal bowel sounds, non tender, soft - obese Extremities: normal range of motion, no calf tenderness, normal capillary refill Skin Exam: warm/dry 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1 % (42.0-52.0) Mean Corpuscular Volume 98 FL (80-99) Mean Corpuscular Hemoglobin 31.8 PG (27.0-31.0) H Mean Corpuscular Hemoglobin Concent 32.4 G/DL (32.0-36.0) Red Cell Distribution Width 12.9 % (11.6-14.8) Platelet Count 181 K/UL (150-450) Mean Platelet Volume 7.4 FL (6.5-10.1) Neutrophils (%) (Auto) 62.1 % (45.0-75.0) Lymphocytes (%) (Auto) 26.5 % (20.0-45.0) Monocytes (%) (Auto) 7.8 % (1.0-10.0) Eosinophils (%) (Auto) 1.9 % (0.0-3.0) Basophils (%) (Auto) 1.8 % (0.0-2.0) Prothrombin Time 10.1 SEC (9.30-11.50) Prothromb Time International Ratio 1.0 (0.9-1.1) Activated Partial Thromboplast Time 27 SEC (23-33) Sodium Level 143 MMOL/L (136-145) Potassium Level 3.8 MMOL/L (3.5-5.1) Chloride Level 108 MMOL/L (98-107) H Carbon Dioxide Level 27 MMOL/L (21-32) Anion Gap 8 mmol/L (5-15) Blood Urea Nitrogen 18 mg/dL (7-18) Creatinine 1.1 MG/DL (0.55-1.30) Estimat Glomerular Filtration Rate > 60 mL/min (>60) Glucose Level 107 MG/DL (74-106) H Calcium Level 9.0 MG/DL (8.5-10.1) Total Bilirubin 0.4 MG/DL (0.2-1.0) Aspartate Amino Transf (AST/SGOT) 20 U/L (15-37) Alanine Aminotransferase (ALT/SGPT) 20 U/L (12-78) Alkaline Phosphatase 79 U/L (46-116) Total Protein 6.8 G/DL (6.4-8.2) Albumin 3.8 G/DL (3.4-5.0) Globulin 3.0 g/dL Albumin/Globulin Ratio 1.3 (1.0-2.7) Triglycerides Level 40 MG/DL (0-200) Cholesterol Level 153 MG/DL (< 200) LDL Cholesterol 75 mg/dL (<100) HDL Cholesterol 69 MG/DL (40-60) H Cholesterol/HDL Ratio 2.2 (3.3-4.4) L Serum Alcohol < 3 mg/dL Height (Feet): 5 Height (Inches): 7.00 Weight (Pounds): 220 Assessment/Plan Assessment/Plan ASSESSMENT acute onset of right sided weakness and numbness possible acute CVA extensive cerebrovascular disease with hx fo multiple strokes in the past HTN COPD Hx of PE Hx of TB, s/p rx 7 yrs ago noncompliance PLAN OF CARE tele ASA statin neuro eval MRI brain carotid duplex bed rest x 24 hrs PT/OT eval and RX in am swallow eval fall precautions BP management, avoid low BP , goal to keep BP between 120 and 160 O2 HHN prn pain management bowel regimen DVT GI prophylaxis Venous Duplex case discussed and evaluated by supervising physician Harrison Monroy)Latanya NP Jun 14, 2017 14:06
[2017-06-14] MEDS ORDERED: Miralax 17gm pkt ORAL PRN (14:15)
[2017-06-14] MEDS ORDERED: Milk of Magnesia 30ml Ud ORAL PRN (14:15)
[2017-06-14] MEDS ORDERED: Albuterol/Ipratropium 3ml neb HHN PRN (14:15)
--- NOTE | 2017-06-14 15:36 | History & Physical ---
History and Physical History & Physicial Dictated for Int Med-Dr Alfonso no. [id number]. MORENA DRAKE Jun 14, 2017 15:36
--- NOTE | 2017-06-14 15:36 | History & Physical ---
History and Physical History & Physicial Dictated for Int Med-Dr Alfonso no. [id number]. MORENA DRAKE Jun 14, 2017 15:36
--- NOTE | 2017-06-14 15:36 | History & Physical ---
History and Physical History & Physicial Dictated for Int Med-Dr Alfonso no. [id number]. MORENA DRAKE Jun 14, 2017 15:36
--- NOTE | 2017-06-14 17:45 | History and Physical Report ---
DATE OF ADMISSION: 06/14/2017 CHIEF COMPLAINT: The patient is a 62-year-old male, who presents with chief complaint of "I had a stroke." HISTORY OF PRESENT ILLNESS: The patient was admitted to [facility] in 08/2016. Please see history and physical and discharge summary dictated at that time. The patient states he has history of 2 strokes in 2017. The patient states he was admitted to [facility]. The patient presented to [facility] complaining of one-day history of tingling and weakness of the right leg. The patient states he is having another stroke. The patient was evaluated in [facility]. The patient was admitted for right-sided weakness to rule out acute cerebrovascular accident. REVIEW OF SYSTEMS: CONSTITUTIONAL: The patient denies weight loss, weight gain. The patient denies fevers or chills. HEENT: The patient denies ear or throat pain. The patient denies headache. CARDIOVASCULAR: The patient denies palpitations or chest pain. CHEST: The patient denies wheeze or shortness of breath. ABDOMINAL: The patient denies nausea, vomiting, diarrhea, constipation. GENITOURINARY: The patient denies dysuria or increased frequency of urination. NEUROMUSCULAR: The patient complains of right leg weakness and numbness as above. The patient denies seizures or generalized weakness. PAST MEDICAL HISTORY: Significant for: 1. Cerebrovascular accident in 09/2016. 2. Prediabetes. 3. Hypertension. 4. Chronic obstructive pulmonary disease. 5. History of deep venous thrombosis of bilateral lower leg. 6. History of pulmonary embolism, status post inferior vena cava filter placement in 2012. PAST SURGICAL HISTORY: The patient denies. CURRENT MEDICATIONS: 1. Aspirin 81 mg one tablet p.o. daily. 2. Lipitor 80 mg one tablet p.o. daily. 3. Benazepril 20 mg one tablet p.o. daily. 4. Coreg 6.25 mg p.o. twice daily. 5. Chlorthalidone 50 mg one tablet p.o. daily. 6. Lasix 40 mg one tablet p.o. daily. 7. Lisinopril 20 mg one tablet p.o. daily. 8. Dulera 100/5 2 puffs p.o. twice daily. 9. Spiriva 18 mcg one puff p.o. daily. Please note the patient has been noncompliant with his medications. ALLERGIES: No known drug allergies. SOCIAL HISTORY: The patient is single and lives with a friend. The patient denies tobacco use having quit in 2008. The patient denies alcohol use. PHYSICAL EXAMINATION: VITAL SIGNS: Temperature 98.4, respirations 15, pulse 76, and blood pressure 163/91. GENERAL: The patient is a well-developed, well-nourished male in no apparent distress. HEENT: Eyes, pupils equal and responsive to light and accommodation. Extraocular movements are intact. NECK: Supple without lymphadenopathy. CHEST: Lungs are clear to auscultation bilaterally without wheezes or rales. CARDIOVASCULAR: Regular rhythm and rate. S1, S2 normal without murmurs, rubs, or gallops. ABDOMEN: Soft, nontender, nondistended. Positive bowel sounds. No evidence of hepatosplenomegaly. Currently, no rebound or guarding noted. EXTREMITIES: Negative for clubbing, cyanosis, or edema. RECTAL: Refused. GENITAL: Refused. NEUROLOGIC: Cranial nerves II through XII are grossly intact without focal deficits. Motor strength is 3/5 on the left and 5/5 . Deep tendon reflexes are 2+, plantar. LABORATORY AND DIAGNOSTIC DATA: WBC 4.5, hemoglobin 15.0, hematocrit 46.1, and platelets 181,000. Sodium 143, potassium 3.8, chloride 108, CO2 27, BUN 18, creatinine 1.1, and glucose 107. CT scan of the brain revealed multiple lacunar infarcts of indeterminate age. ASSESSMENT: This is a 62-year-old male with: 1. Left-sided numbness and weakness. 2. Probable acute cerebrovascular accident. 3. Prediabetes. 4. Hypertension. 5. Chronic obstructive pulmonary disease. 6. History of deep venous thrombosis with pulmonary embolism. TREATMENT: 1. Right-sided weakness/numbness. Neurology consultation has been obtained with Dr. Pandya. MRI of the brain is pending. We will follow recommendations of neurology. Continue aspirin as above. 2. Prediabetes. The patient's blood sugar is currently normal. 3. Hypertension. Continue Coreg and lisinopril as above. 4. Chronic obstructive pulmonary disease. Continue Dulera and Spiriva as above. 5. History of deep venous thrombosis/pulmonary embolism, status post inferior vena cava filter placement. Bebeto Proctor M.D. DR: Tom JOB#: [id number] CC:
[2017-06-14] MEDS: Heparin 5000 units/ml inj SUBQ SCH (20:50)
[2017-06-14] MEDS ORDERED: Flu Vaccine Quadrivalent 0.5ml IM ONE (21:00)
[2017-06-14] MEDS ORDERED: Pneumococcal Vaccine 25mcg/0.5ml IM ONE (21:01)
[2017-06-15 03:43] VITALS: BP 156/106
[2017-06-15 07:16] LABS: BASOPHILS % (AUTO) 1.1 % (0.0-2.0); EOSINOPHILS % (AUTO) 2.3 % (0.0-3.0); HEMATOCRIT 47.1 % (42.0-52.0); HEMOGLOBIN 14.8 G/DL (14.2-18.0); LYMPHOCYTES % (AUTO) 26.2 % (20.0-45.0); MEAN CORPUSCULAR VOLUME 99 FL (80-99); MONOCYTES % (AUTO) 9.5 % (1.0-10.0); NEUTROPHILS % (AUTO) 60.8 % (45.0-75.0); PLATELET COUNT 154 K/UL (150-450); RED BLOOD COUNT 4.77 M/UL (4.70-6.10); RED CELL DISTRIBUTION WIDTH 13.1 % (11.6-14.8); WHITE BLOOD COUNT 4.1 K/UL (4.8-10.8)
[2017-06-15 07:46] LABS: ANION GAP 6 mmol/L (5-15); BLOOD UREA NITROGEN 19 mg/dL (7-18); CALCIUM 8.7 MG/DL (8.5-10.1); CARBON DIOXIDE 30 MMOL/L (21-32); CHLORIDE 106 MMOL/L (98-107); POTASSIUM 4.1 MMOL/L (3.5-5.1); SODIUM 141 MMOL/L (136-145)
[2017-06-15] MEDS: Aspirin Baby 81mg ORAL SCH (08:26)
[2017-06-15] MEDS: Morphine Sulfate 4mg/ml Inj IV PRN (08:26)
--- NOTE | 2017-06-15 08:27 | Pulmonology Progress Note ---
Assessment/Plan Assessment/Plan ASSESSMENT acute onset of right sided weakness and numbness possible acute CVA extensive cerebrovascular disease with hx fo multiple strokes in the past HTN COPD Hx of PE Hx of TB, s/p rx 7 yrs ago noncompliance PLAN OF CARE tele ASA statin neuro eval MRI brain carotid duplex bed rest x 24 hrs PT/OT eval and RX in am swallow eval fall precautions BP management, avoid low BP , goal to keep BP between 120 and 160 O2 HHN prn CXR negative fro any acute CP pathology pain management bowel regimen DVT GI prophylaxis Venous Duplex [id number] prediabetes , residential treatment counselor to avoid cocnentarted sweets case discussed and evaluated by supervising physician Subjective Allergies: Coded Allergies: No Known Allergies (Verified , 12/21/06) Subjective continue to complain about R sided numbness Objective Last 24 Hour Vital Signs Date Time Temp Pulse Resp B/P (MAP) Pulse Ox O2 Delivery O2 Flow Rate FiO2 06/15/17 04:00 63 06/15/17 03:43 97.3 65 20 156/106 94 Room Air 06/15/17 00:00 68 06/14/17 23:33 96.6 64 20 156/103 96 Room Air 06/14/17 20:33 78 20 Room Air 21 06/14/17 20:00 76 06/14/17 19:38 97.9 79 20 144/88 95 Room Air 06/14/17 16:00 72 06/14/17 15:39 97.5 76 18 155/99 95 Room Air 06/14/17 13:49 97.0 71 18 153/97 97 Room Air 06/14/17 13:30 97.9 71 15 154/90 97 Room Air 06/14/17 12:27 97.9 71 15 154/90 97 Room Air 06/14/17 09:50 98.1 73 17 178/97 97 Room Air 06/14/17 08:52 71 16 161/99 97 Room Air General Appearance: WD/WN, no acute distress HEENT: normocephalic, atraumatic, anicteric, mucous membranes moist, PERRL Respiratory/Chest: chest wall non-tender, lungs clear, normal breath sounds, no respiratory distress, no accessory muscle use Cardiovascular: normal rate, regular rhythm, no JVD Abdomen: normal bowel sounds, soft, non tender, non distended Extremities: no edema, pedal pulses normal Neurologic/Psychiatric: alert, oriented x 3, responsive, other - muscle strength 5/5 L side and 4/5 R side Musculoskeletal: normal muscle bulk Laboratory Tests 06/14/17 08:35: White Blood Count 4.5L, Red Blood Count 4.71, Hemoglobin 15.0, Hematocrit 46.1, Mean Corpuscular Volume 98, Mean Corpuscular Hemoglobin 31.8H, Mean Corpuscular Hemoglobin Concent 32.4, Red Cell Distribution Width 12.9, Platelet Count 181, Mean Platelet Volume 7.4, Neutrophils (%) (Auto) 62.1, Lymphocytes (%) (Auto) 26.5, Monocytes (%) (Auto) 7.8, Eosinophils (%) (Auto) 1.9, Basophils (%) (Auto ) 1.8, Prothrombin Time 10.1, Prothromb Time International Ratio 1.0, Activated Partial Thromboplast Time 27, Sodium Level 143, Potassium Level 3.8, Chloride Level 108H, Carbon Dioxide Level 27, Anion Gap 8, Blood Urea Nitrogen 18, Creatinine 1.1, Estimat Glomerular Filtration Rate > 60, Glucose Level 107H, Calcium Level 9.0, Total Bilirubin 0.4, Aspartate Amino Transf (AST/SGOT) 20, Alanine Aminotransferase (ALT/SGPT) 20, Alkaline Phosphatase 79, Total Protein 6.8, Albumin 3.8, Globulin 3.0, Albumin/Globulin Ratio 1.3, Triglycerides Level 40, Cholesterol Level 153, LDL Cholesterol 75, HDL Cholesterol 69H, Cholesterol/ HDL Ratio 2.2L, Serum Alcohol < 3 06/15/17 04:40: White Blood Count 4.1L, Red Blood Count 4.77, Hemoglobin 14.8, Hematocrit 47.1, Mean Corpuscular Volume 99, Mean Corpuscular Hemoglobin 30.9, Mean Corpuscular Hemoglobin Concent 31.3L, Red Cell Distribution Width 13.1, Platelet Count 154, Mean Platelet Volume 7.0, Neutrophils (%) (Auto) 60.8, Lymphocytes (%) (Auto) 26.2, Monocytes (%) (Auto) 9.5, Eosinophils (%) (Auto) 2.3, Basophils (%) (Auto ) 1.1, Sodium Level 141, Potassium Level 4.1, Chloride Level 106, Carbon Dioxide Level 30, Anion Gap 6, Blood Urea Nitrogen 19H, Creatinine 1.0, Estimat Glomerular Filtration Rate > 60, Glucose Level 119H, Calcium Level 8.7, Hemoglobin A1c 6.2H, Magnesium Level 2.0, Thyroid Stimulating Hormone (TSH) 0.384 Current Medications Medications (Trade) Dose Ordered Sig/Fabi Route PRN Reason Start Time Stop Time Status Last Admin Dose Admin Acetaminophen (Tylenol) 650 mg Q4H PRN ORAL Mild Pain (Pain Scale 1-3) 06/14/17 14:15 07/14/17 14:14 Albuterol/ Ipratropium (Albuterol/ Ipratropium) 3 ml Q4H PRN HHN Shortness of Breath 06/14/17 14:15 06/19/17 14:14 Aspirin (ASA) 81 mg DAILY ORAL 06/15/17 09:00 07/15/17 08:59 Dextrose (Dextrose 50%) STAT PRN IV Hypoglycemia 06/14/17 14:15 07/14/17 14:14 Heparin Sodium (Porcine) (Heparin 5000 units/ml) 5,000 units EVERY 12 HOURS SUBQ 06/14/17 21:00 07/14/17 20:59 06/14/17 20:50 Magnesium Hydroxide (Mom) 30 ml HSPRN PRN ORAL Constipation 06/14/17 14:15 07/14/17 14:14 Morphine Sulfate (Morphine Sulfate) 1 mg Q4H PRN IV For Pain Scale 4-10 06/14/17 14:15 06/21/17 14:14 Polyethylene Glycol (Miralax) 17 gm DAILYPRN PRN ORAL Constipation 06/14/17 14:15 07/14/17 14:14 Ranitidine HCl (Zantac) 150 mg TWICE A DAY ORAL 06/14/17 18:00 07/14/17 17:59 06/14/17 17:43 Latanya Terry NP (Vanchtein) Jun 15, 2017 08:27
[2017-06-15] MEDS: Heparin 5000 units/ml inj SUBQ SCH ×2 (08:30→20:33)
[2017-06-15 09:00] VITALS: BP 162/110
[2017-06-15] MEDS ORDERED: Carvedilol 6.25mg Tab ORAL ONE (10:45)
[2017-06-15] MEDS ORDERED: Lisinopril 20mg tab ORAL ONE (10:45)
[2017-06-15 12:06] VITALS: BP 152/99
--- NOTE | 2017-06-15 13:10 | Neurology Progress Note ---
Objective Physical Exam Last Vital Signs Date Time Temp Pulse Resp B/P (MAP) Pulse Ox O2 Delivery O2 Flow Rate FiO2 06/15/17 12:06 98.2 68 19 152/99 Room Air 06/15/17 07:50 21 06/15/17 03:43 94 Laboratory Tests Test 06/15/17 04:40 White Blood Count 4.1 K/UL (4.8-10.8) L Red Blood Count 4.77 M/UL (4.70-6.10) Hemoglobin 14.8 G/DL (14.2-18.0) Hematocrit 47.1 % (42.0-52.0) Mean Corpuscular Volume 99 FL (80-99) Mean Corpuscular Hemoglobin 30.9 PG (27.0-31.0) Mean Corpuscular Hemoglobin Concent 31.3 G/DL (32.0-36.0) L Red Cell Distribution Width 13.1 % (11.6-14.8) Platelet Count 154 K/UL (150-450) Mean Platelet Volume 7.0 FL (6.5-10.1) Neutrophils (%) (Auto) 60.8 % (45.0-75.0) Lymphocytes (%) (Auto) 26.2 % (20.0-45.0) Monocytes (%) (Auto) 9.5 % (1.0-10.0) Eosinophils (%) (Auto) 2.3 % (0.0-3.0) Basophils (%) (Auto) 1.1 % (0.0-2.0) Sodium Level 141 MMOL/L (136-145) Potassium Level 4.1 MMOL/L (3.5-5.1) Chloride Level 106 MMOL/L (98-107) Carbon Dioxide Level 30 MMOL/L (21-32) Anion Gap 6 mmol/L (5-15) Blood Urea Nitrogen 19 mg/dL (7-18) H Creatinine 1.0 MG/DL (0.55-1.30) Estimat Glomerular Filtration Rate > 60 mL/min (>60) Glucose Level 119 MG/DL (74-106) H Hemoglobin A1c 6.2 % (4.3-6.0) H Calcium Level 8.7 MG/DL (8.5-10.1) Magnesium Level 2.0 MG/DL (1.8-2.4) Thyroid Stimulating Hormone (TSH) 0.384 uiU/mL (0.360-3.740) Impression/Recommendations Problems: (1) acyte ischemic L MCA lacunar stroke (2) 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
[2017-06-15 16:09] VITALS: BP 155/91
--- NOTE | 2017-06-15 16:48 | Internal Med Progress Note ---
Subjective Date of Service: Jun 15, 2017 Physician Name Morena Drake Attending Physician Bienvenido Alfonso MD Current Medications Medications (Trade) Dose Ordered Sig/Fabi Route PRN Reason Start Time Stop Time Status Last Admin Dose Admin Acetaminophen (Tylenol) 650 mg Q4H PRN ORAL Mild Pain (Pain Scale 1-3) 06/14/17 14:15 07/14/17 14:14 Albuterol/ Ipratropium (Albuterol/ Ipratropium) 3 ml Q4H PRN HHN Shortness of Breath 06/14/17 14:15 06/19/17 14:14 Aspirin (ASA) 81 mg DAILY ORAL 06/15/17 09:00 07/15/17 08:59 06/15/17 08:26 Atorvastatin Calcium (Lipitor) 10 mg BEDTIME ORAL 06/15/17 21:00 07/15/17 20:59 Clonidine HCl (Catapres) 0.1 mg Q4H PRN ORAL SBP >150 or DBP > 100 mmHg 06/15/17 10:45 07/15/17 10:44 Clopidogrel Bisulfate (Plavix) 75 mg DAILY ORAL 06/15/17 13:30 07/15/17 13:29 06/15/17 13:42 Dextrose (Dextrose 50%) STAT PRN IV Hypoglycemia 06/14/17 14:15 07/14/17 14:14 Heparin Sodium (Porcine) (Heparin 5000 units/ml) 5,000 units EVERY 12 HOURS SUBQ 06/14/17 21:00 07/14/17 20:59 06/15/17 08:30 Magnesium Hydroxide (Mom) 30 ml HSPRN PRN ORAL Constipation 06/14/17 14:15 07/14/17 14:14 Morphine Sulfate (Morphine Sulfate) 1 mg Q4H PRN IV For Pain Scale 4-10 06/14/17 14:15 06/21/17 14:14 06/15/17 08:26 Polyethylene Glycol (Miralax) 17 gm DAILYPRN PRN ORAL Constipation 06/14/17 14:15 07/14/17 14:14 Ranitidine HCl (Zantac) 150 mg TWICE A DAY ORAL 06/14/17 18:00 07/14/17 17:59 06/15/17 08:26 Allergies: Coded Allergies: No Known Allergies (Verified , 12/21/06) ROS Limited/Unobtainable: No Constitutional: Reports: no symptoms HEENT: Reports: no symptoms Cardiovascular: Reports: no symptoms Respiratory: Reports: no symptoms Gastrointestinal/Abdominal: Reports: no symptoms Genitourinary: Reports: no symptoms Neurologic/Psychiatric: Reports: weakness Subjective 62 YO M admitted with right leg weakness. Now acute cerebral vascular accident. Await MRI brain and carotid doppler. Cover for Int Bj-Dr Alfonso. Objective Last Vital Signs Date Time Temp Pulse Resp B/P (MAP) Pulse Ox O2 Delivery O2 Flow Rate FiO2 06/15/17 16:09 98.2 75 19 155/91 Room Air 06/15/17 07:50 21 06/15/17 03:43 94 General Appearance: WD/WN, no apparent distress, alert EENT: PERRL/EOMI, normal ENT inspection, TMs normal Neck: non-tender, normal alignment, supple Cardiovascular: normal peripheral pulses, normal rate, regular rhythm, no gallop/murmur, no JVD Respiratory/Chest: chest wall non-tender, lungs clear, normal breath sounds, no respiratory distress, no accessory muscle use Abdomen: normal bowel sounds, non tender, soft, no organomegaly, no mass 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, other - weakness right leg Skin: normal pigmentation, warm/dry Laboratory Tests Test 06/15/17 04:40 White Blood Count 4.1 K/UL (4.8-10.8) L Red Blood Count 4.77 M/UL (4.70-6.10) Hemoglobin 14.8 G/DL (14.2-18.0) Hematocrit 47.1 % (42.0-52.0) Mean Corpuscular Volume 99 FL (80-99) Mean Corpuscular Hemoglobin 30.9 PG (27.0-31.0) Mean Corpuscular Hemoglobin Concent 31.3 G/DL (32.0-36.0) L Red Cell Distribution Width 13.1 % (11.6-14.8) Platelet Count 154 K/UL (150-450) Mean Platelet Volume 7.0 FL (6.5-10.1) Neutrophils (%) (Auto) 60.8 % (45.0-75.0) Lymphocytes (%) (Auto) 26.2 % (20.0-45.0) Monocytes (%) (Auto) 9.5 % (1.0-10.0) Eosinophils (%) (Auto) 2.3 % (0.0-3.0) Basophils (%) (Auto) 1.1 % (0.0-2.0) Sodium Level 141 MMOL/L (136-145) Potassium Level 4.1 MMOL/L (3.5-5.1) Chloride Level 106 MMOL/L (98-107) Carbon Dioxide Level 30 MMOL/L (21-32) Anion Gap 6 mmol/L (5-15) Blood Urea Nitrogen 19 mg/dL (7-18) H Creatinine 1.0 MG/DL (0.55-1.30) Estimat Glomerular Filtration Rate > 60 mL/min (>60) Glucose Level 119 MG/DL (74-106) H Hemoglobin A1c 6.2 % (4.3-6.0) H Calcium Level 8.7 MG/DL (8.5-10.1) Magnesium Level 2.0 MG/DL (1.8-2.4) Thyroid Stimulating Hormone (TSH) 0.384 uiU/mL (0.360-3.740) Intake and Output 06/15/17 06/16/17 19:00 07:00 Output Total 1100 ml Balance -1100 ml Output Urine Total 1100 ml # Voids 4 Assessment/Plan Problem List: (1) Paresthesia (2) Weakness of right leg Assessment & Plan: Due to acute stroke. Await MRI brain and carotid doppler (3) Acute ischemic stroke Assessment & Plan: See Neurology note. Await MRI brain and carotid doppler (4) Pre-diabetes (5) Hypertension Assessment & Plan: Continue lisinopril, coreg and prn clonidine (6) COPD (chronic obstructive pulmonary disease) (7) History of DVT (deep vein thrombosis) Status: not improved MORENA DRAKE Jun 15, 2017 16:48
[2017-06-15 20:00] VITALS: BP 123/87
--- NOTE | 2017-06-15 22:30 | Consultation ---
DATE OF CONSULTATION: 06/15/2017 NEUROLOGICAL CONSULTATION CONSULTING PHYSICIAN: Wilner Pandya M.D. REQUESTING PHYSICIAN: Bienvenido Alfonso M.D. HISTORY OF PRESENT ILLNESS: This 62-year-old male seen in neurological consultation to evaluate the new onset of weakness in the right lower extremity, tingling sensation in the right hand, and increasing instability of gait, at least two falls within last couple of days. The patient was brought to emergency room complaining of increasing right-sided weakness started about two weeks prior. The patient was complaining of numbness and weakness in the right upper extremity. His vital signs on admission, blood pressure 163/91, temperature 98.4. Imaging studies were obtained including CT scan of the brain, which revealed multiple lacunar strokes, bilateral caudate, thalami, pontine region, periventricular low densities consistent with chronic small vessel ischemic disease. A chest x-ray, atherosclerotic changes. No acute abnormalities. Lab work was obtained revealing WBC 4.5, otherwise normal CBC studies. Normal coagulation panel. Toxicology negative for alcohol. Chemistry panel unremarkable except blood sugar 107. Positive hemoglobin A1c of 6.2. The patient informs me that he has been consistently not compliant with medications. He is suffering long-term hypertension, COPD. He has a history of TB of the lungs, treated 7 years ago, and history of pulmonary embolism. His treatment prior to admission included aspirin, atorvastatin, carvedilol, chlorthalidone, furosemide, and lisinopril, but the patient indicates that he has been noncompliant consistently. The patient also informed me that he started to develop abnormality of gait approximately three years ago. He started to use cane, walker, and even a wheelchair. This increased substantially two days prior to the current admission. He has intermittent cough causing him headaches. SOCIAL HISTORY: Previously, he is single. No close family. Previously homeless, now rents a "porch" by his friend. Denies alcohol or drug abuse. He stopped smoking 8 years ago. PHYSICAL EXAMINATION: GENERAL: A well-developed, somewhat disheveled man, not in acute distress, sitting at the bedside having his lunch. VITAL SIGNS: Now stable. Blood pressure of 152/99, temperature 98.2 degrees, heart rate of 68. HEENT: Head, normocephalic. There is no evidence of trauma. There is poor dentition. NECK: Supple. No meningeal signs. MUSCULOSKELETAL: No deformities. Peripheral pulses 1+ and symmetric. MENTAL STATUS: He is alert and oriented x3 with no evidence of aphasia or apraxia. He has a strong denial, but follows commands. CRANIAL NERVE II: Pupils both responding to light and accommodation. Extraocular movements intact. No nystagmus. CRANIAL NERVE V: Normal corneal responses. CRANIAL NERVE VII: No facial asymmetry. CRANIAL NERVE VIII: Grossly normal hearing. CRANIAL NERVE IX THROUGH XII: Tongue is in midline. MOTOR EXAMINATION: Revealed slight diffuse rigidity, but more on the right side with clumsiness in the right lower extremities. There is minor pronation drift, right arm and right leg. Deep tendon reflexes 2+ on the right more than left. SENSORY EXAMINATION: Consistent, but appears normal to pin stimulation. GAIT: Very unsteady. Limping to the right. Stooped posture. IMPRESSION: 1. Status post multiple disseminated lacunar strokes indicating a severe small-vessel disease, now presenting with acute onset of right-sided weakness and right arm tingling, probably representing a new lacunar infarct in the left middle cerebral artery distribution. 2. Hypertension. 3. Diabetes type 2. 4. Noncompliance. 5. Chronic obstructive pulmonary disease. 6. The patient is chronically ill person who has a significant small vessel disease, most likely due to poorly controlled hypertension, due to noncompliance and hyperlipidemia. The patient has radiological evidence of multiple disseminated chronic small vessel lacunar strokes with no evidence of acute abnormalities clinically, but on clinical basis, there is new a evidence of right-sided weakness, clumsiness, which may represent a left middle cerebral artery distribution small stroke. 7. The patient will be started on aspirin and Plavix at 75 mg. Continue with statins. The patient would benefit to be in a structured environment to provide him with proper timely treatment for baseline medical issues. Wilner Pandya M.D. DR: ESTEBAN JOB#: [id number] CC:
[2017-06-16 02:00] VITALS: BP 177/107
[2017-06-16 08:00] VITALS: BP 147/88
[2017-06-16] MEDS: Aspirin Baby 81mg ORAL SCH (08:59)
[2017-06-16] MEDS: Heparin 5000 units/ml inj SUBQ SCH ×2 (09:07→21:33)
[2017-06-16 10:47] LABS: HEMATOCRIT 44.1 % (42.0-52.0); HEMOGLOBIN 13.9 G/DL (14.2-18.0); MEAN CORPUSCULAR VOLUME 99 FL (80-99); PLATELET COUNT 170 K/UL (150-450); RED BLOOD COUNT 4.44 M/UL (4.70-6.10); WHITE BLOOD COUNT 3.4 K/UL (4.8-10.8)
[2017-06-16 11:02] LABS: ANION GAP 5 mmol/L (5-15); BLOOD UREA NITROGEN 17 mg/dL (7-18); CALCIUM 8.9 MG/DL (8.5-10.1); CARBON DIOXIDE 29 MMOL/L (21-32); CHLORIDE 107 MMOL/L (98-107); SODIUM 141 MMOL/L (136-145)
[2017-06-16] MEDS: Morphine Sulfate 4mg/ml Inj IV PRN (11:11)
--- NOTE | 2017-06-16 11:31 | Neurology Progress Note ---
Interim History Interim History ROS Limited/Unobtainable: No Complaints: unstable gait L side weakness nausea when supine Events: no change Objective Physical Exam Last Vital Signs Date Time Temp Pulse Resp B/P (MAP) Pulse Ox O2 Delivery O2 Flow Rate FiO2 06/16/17 08:36 63 20 Room Air 21 06/16/17 08:00 96.4 147/88 93 Laboratory Tests Test 06/16/17 09:30 White Blood Count 3.4 K/UL (4.8-10.8) L Red Blood Count 4.44 M/UL (4.70-6.10) L Hemoglobin 13.9 G/DL (14.2-18.0) L Hematocrit 44.1 % (42.0-52.0) Mean Corpuscular Volume 99 FL (80-99) Mean Corpuscular Hemoglobin 31.3 PG (27.0-31.0) H Mean Corpuscular Hemoglobin Concent 31.6 G/DL (32.0-36.0) L Red Cell Distribution Width 13.0 % (11.6-14.8) Platelet Count 170 K/UL (150-450) Mean Platelet Volume 7.1 FL (6.5-10.1) Neutrophils (%) (Auto) % (45.0-75.0) Lymphocytes (%) (Auto) % (20.0-45.0) Monocytes (%) (Auto) % (1.0-10.0) Eosinophils (%) (Auto) % (0.0-3.0) Basophils (%) (Auto) % (0.0-2.0) Differential Total Cells Counted 100 Neutrophils % (Manual) 53 % (45-75) Lymphocytes % (Manual) 34 % (20-45) Monocytes % (Manual) 10 % (1-10) Eosinophils % (Manual) 3 % (0-3) Basophils % (Manual) 0 % (0-2) Band Neutrophils 0 % (0-8) Platelet Estimate Adequate Platelet Morphology Normal Red Blood Cell Morphology Normal Hypochromasia 1+ Sodium Level 141 MMOL/L (136-145) Potassium Level 4.0 MMOL/L (3.5-5.1) Chloride Level 107 MMOL/L (98-107) Carbon Dioxide Level 29 MMOL/L (21-32) Anion Gap 5 mmol/L (5-15) Blood Urea Nitrogen 17 mg/dL (7-18) Creatinine 1.0 MG/DL (0.55-1.30) Estimat Glomerular Filtration Rate > 60 mL/min (>60) Glucose Level 107 MG/DL (74-106) H Calcium Level 8.9 MG/DL (8.5-10.1) General: well developed, no acute distress Head: atraumatic Neurologic Exam Mental Status: awake, alert, other - forgetful Speech: no dysarthia Language: no aphasia Cranial Nerve II: no papilledema Cranial Nerves III, IV, : pupils Cranial Nerve V: masseters function normal Cranial Nerve VII: normal facial expressions Cranial Nerve VIII: no nystagmus Cranial Nerve IX: gag response Cranial Nerve XI: trapezii function normal Cranial Nerve XII: no tongue atrophy/fasciculations Motor System: no involuntary movement, no muscle wasting, other - rigidity L>R Sensory: normal pinprick Coordination: other - clumsy BUE, + romberg Deep Tendon Reflexes: 0 bicep (L), 0 bicep (R), 0 tricep (L), 0 tricep (R), 0 brachioradialis (L), 0 brachioradialis (R), 0 knee (L), 0 knee (R), 0 ankle (L) , 0 ankle (R) Reflexes: mute plantar (L), mute plantar (R) Gait: other - unstable Impression/Recommendations Problems: (1) acyte ischemic L MCA lacunar stroke (2) 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
[2017-06-16 12:00] VITALS: BP 131/81
--- NOTE | 2017-06-16 15:33 | Diagnostic Imaging Report ---
Indication: Acute CVA. Right-sided weakness Technique: The head was imaged in a 1.5 Roshni magnet. Sequences obtained include sagittal and axial T1 FLAIR, axial T2 fast spin echo with fat saturation, axial T2 FLAIR, diffusion and ADC map. Gadolinium-enhanced axial and coronal T1 FLAIR obtained also. Comparison: CT head 06/14/17 Punctate focus of diffusion restriction measuring 3 mm noted within the posterior left paramedian aspect of the jose just anterior to the fourth ventricle. Findings consistent with acute CVA. This is seen in the context of other old pontine infarcts noted centrally associated with T2 hyperintense signal seen within the brainstem as well as extensively within the basal ganglia and vasquez radiata/centrum semiovale indicative of chronic small vessel disease. Other cystic foci noted within the basal ganglia and thalami bilaterally consistent with old lacunar infarct. Several punctate low signal foci noted of susceptibility noted on T2 * gradient echo, finding that is nonspecific but could be due to chronic hypertension. There is no mass effect or edema. There is no evidence of hemorrhage. The ventricles appear normal. Corpus callosum, sella, osseous bone marrow signal appear unremarkable. Impression: Tiny acute CVA involving the posterior left paramedian aspect of the jose. Evidence of extensive chronic small vessel disease. Multiple old lacunar infarcts in the brainstem, basal ganglia/thalami and vasquez radiata.
--- NOTE | 2017-06-16 15:55 | Pulmonology Progress Note ---
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4 63 19 147/88 93 Room Air 06/16/17 06:19 177/107 06/16/17 04:00 74 06/16/17 02:00 97.9 65 20 177/107 96 Room Air 06/16/17 01:14 177/101 06/16/17 00:00 62 06/15/17 20:00 75 06/15/17 20:00 99.0 67 20 123/87 67 Room Air 06/15/17 19:38 77 20 Room Air 21 06/15/17 16:09 98.2 75 19 155/91 Room Air 06/15/17 16:00 74 General Appearance: WD/WN HEENT: normocephalic, atraumatic Respiratory/Chest: chest wall non-tender, lungs clear Cardiovascular: normal rate Abdomen: normal bowel sounds, soft, non tender Genitourinary: normal external genitalia Extremities: no cyanosis Skin: no rash 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 Complete Laboratory Tests 06/16/17 09:30: White Blood Count 3.4L, Red Blood Count 4.44L, Hemoglobin 13.9L, Hematocrit 44.1 , Mean Corpuscular Volume 99, Mean Corpuscular Hemoglobin 31.3H, Mean Corpuscular Hemoglobin Concent 31.6L, Red Cell Distribution Width 13.0, Platelet Count 170, Mean Platelet Volume 7.1, Neutrophils (%) (Auto) , Lymphocytes (%) (Auto) , Monocytes (%) (Auto) , Eosinophils (%) (Auto) , Basophils (%) (Auto) , Differential Total Cells Counted 100, Neutrophils % ( Manual) 53, Lymphocytes % (Manual) 34, Monocytes % (Manual) 10, Eosinophils % ( Manual) 3, Basophils % (Manual) 0, Band Neutrophils 0, Platelet Estimate Adequate, Platelet Morphology Normal, Red Blood Cell Morphology Normal, Hypochromasia 1+, Sodium Level 141, Potassium Level 4.0, Chloride Level 107, Carbon Dioxide Level 29, Anion Gap 5, Blood Urea Nitrogen 17, Creatinine 1.0, Estimat Glomerular Filtration Rate > 60, Glucose Level 107H, Calcium Level 8.9 Current Medications Medications (Trade) Dose Ordered Sig/Fabi Route PRN Reason Start Time Stop Time Status Last Admin Dose Admin Acetaminophen (Tylenol) 650 mg Q4H PRN ORAL Mild Pain (Pain Scale 1-3) 06/14/17 14:15 07/14/17 14:14 Albuterol/ Ipratropium (Albuterol/ Ipratropium) 3 ml Q4H PRN HHN Shortness of Breath 06/14/17 14:15 06/19/17 14:14 Aspirin (ASA) 81 mg DAILY ORAL 06/15/17 09:00 07/15/17 08:59 06/16/17 08:59 Atorvastatin Calcium (Lipitor) 10 mg BEDTIME ORAL 06/15/17 21:00 07/15/17 20:59 06/15/17 20:30 Clonidine HCl (Catapres) 0.1 mg Q4H PRN ORAL SBP >150 or DBP > 100 mmHg 06/15/17 10:45 07/15/17 10:44 06/16/17 06:19 Clopidogrel Bisulfate (Plavix) 75 mg DAILY ORAL 06/15/17 13:30 07/15/17 13:29 06/16/17 08:59 Dextrose (Dextrose 50%) STAT PRN IV Hypoglycemia 06/14/17 14:15 07/14/17 14:14 Heparin Sodium (Porcine) (Heparin 5000 units/ml) 5,000 units EVERY 12 HOURS SUBQ 06/14/17 21:00 07/14/17 20:59 06/16/17 09:07 Magnesium Hydroxide (Mom) 30 ml HSPRN PRN ORAL Constipation 06/14/17 14:15 07/14/17 14:14 Morphine Sulfate (Morphine Sulfate) 1 mg Q4H PRN IV For Pain Scale 4-10 06/14/17 14:15 06/21/17 14:14 06/16/17 11:11 Ondansetron HCl (Zofran ODT) 4 mg ONCE PRN ORAL PRIOR TO MRI 06/16/17 11:30 06/16/17 23:59 06/16/17 12:06 Polyethylene Glycol (Miralax) 17 gm DAILYPRN PRN ORAL Constipation 06/14/17 14:15 07/14/17 14:14 Ranitidine HCl (Zantac) 150 mg TWICE A DAY ORAL 06/14/17 18:00 07/14/17 17:59 06/16/17 08:59 HELEN MURRAY Jun 16, 2017 15:55
[2017-06-16 16:00] VITALS: BP 134/91
--- NOTE | 2017-06-16 18:57 | Internal Med Progress Note ---
Subjective Date of Service: Jun 16, 2017 Physician Name Morena Drake Attending Physician Bienvenido Alfonso MD Current Medications Medications (Trade) Dose Ordered Sig/Fabi Route PRN Reason Start Time Stop Time Status Last Admin Dose Admin Acetaminophen (Tylenol) 650 mg Q4H PRN ORAL Mild Pain (Pain Scale 1-3) 06/14/17 14:15 07/14/17 14:14 Albuterol/ Ipratropium (Albuterol/ Ipratropium) 3 ml Q4H PRN HHN Shortness of Breath 06/14/17 14:15 06/19/17 14:14 Aspirin (ASA) 81 mg DAILY ORAL 06/15/17 09:00 07/15/17 08:59 06/16/17 08:59 Atorvastatin Calcium (Lipitor) 10 mg BEDTIME ORAL 06/15/17 21:00 07/15/17 20:59 06/15/17 20:30 Clonidine HCl (Catapres) 0.1 mg Q4H PRN ORAL SBP >150 or DBP > 100 mmHg 06/15/17 10:45 07/15/17 10:44 06/16/17 06:19 Clopidogrel Bisulfate (Plavix) 75 mg DAILY ORAL 06/15/17 13:30 07/15/17 13:29 06/16/17 08:59 Dextrose (Dextrose 50%) STAT PRN IV Hypoglycemia 06/14/17 14:15 07/14/17 14:14 Heparin Sodium (Porcine) (Heparin 5000 units/ml) 5,000 units EVERY 12 HOURS SUBQ 06/14/17 21:00 07/14/17 20:59 06/16/17 09:07 Magnesium Hydroxide (Mom) 30 ml HSPRN PRN ORAL Constipation 06/14/17 14:15 07/14/17 14:14 Morphine Sulfate (Morphine Sulfate) 1 mg Q4H PRN IV For Pain Scale 4-10 06/14/17 14:15 06/21/17 14:14 06/16/17 11:11 Ondansetron HCl (Zofran ODT) 4 mg ONCE PRN ORAL PRIOR TO MRI 06/16/17 11:30 06/16/17 23:59 06/16/17 12:06 Polyethylene Glycol (Miralax) 17 gm DAILYPRN PRN ORAL Constipation 06/14/17 14:15 07/14/17 14:14 Ranitidine HCl (Zantac) 150 mg TWICE A DAY ORAL 06/14/17 18:00 07/14/17 17:59 06/16/17 17:36 Allergies: Coded Allergies: No Known Allergies (Verified , 12/21/06) ROS Limited/Unobtainable: No Constitutional: Reports: weakness HEENT: Reports: no symptoms Cardiovascular: Reports: no symptoms Respiratory: Reports: no symptoms Gastrointestinal/Abdominal: Reports: no symptoms Genitourinary: Reports: no symptoms Neurologic/Psychiatric: Reports: weakness Subjective 62 YO M admitted with right leg weakness. Now acute cerebral vascular accident. S/P MRI brain and carotid doppler. Cover for Int Bj-Dr Alfonso. Objective Last Vital Signs Date Time Temp Pulse Resp B/P (MAP) Pulse Ox O2 Delivery O2 Flow Rate FiO2 06/16/17 16:00 98.6 66 20 134/91 95 Room Air 06/16/17 08:36 21 Laboratory Tests Test 06/16/17 09:30 White Blood Count 3.4 K/UL (4.8-10.8) L Red Blood Count 4.44 M/UL (4.70-6.10) L Hemoglobin 13.9 G/DL (14.2-18.0) L Hematocrit 44.1 % (42.0-52.0) Mean Corpuscular Volume 99 FL (80-99) Mean Corpuscular Hemoglobin 31.3 PG (27.0-31.0) H Mean Corpuscular Hemoglobin Concent 31.6 G/DL (32.0-36.0) L Red Cell Distribution Width 13.0 % (11.6-14.8) Platelet Count 170 K/UL (150-450) Mean Platelet Volume 7.1 FL (6.5-10.1) Neutrophils (%) (Auto) % (45.0-75.0) Lymphocytes (%) (Auto) % (20.0-45.0) Monocytes (%) (Auto) % (1.0-10.0) Eosinophils (%) (Auto) % (0.0-3.0) Basophils (%) (Auto) % (0.0-2.0) Differential Total Cells Counted 100 Neutrophils % (Manual) 53 % (45-75) Lymphocytes % (Manual) 34 % (20-45) Monocytes % (Manual) 10 % (1-10) Eosinophils % (Manual) 3 % (0-3) Basophils % (Manual) 0 % (0-2) Band Neutrophils 0 % (0-8) Platelet Estimate Adequate Platelet Morphology Normal Red Blood Cell Morphology Normal Hypochromasia 1+ Sodium Level 141 MMOL/L (136-145) Potassium Level 4.0 MMOL/L (3.5-5.1) Chloride Level 107 MMOL/L (98-107) Carbon Dioxide Level 29 MMOL/L (21-32) Anion Gap 5 mmol/L (5-15) Blood Urea Nitrogen 17 mg/dL (7-18) Creatinine 1.0 MG/DL (0.55-1.30) Estimat Glomerular Filtration Rate > 60 mL/min (>60) Glucose Level 107 MG/DL (74-106) H Calcium Level 8.9 MG/DL (8.5-10.1) Microbiology Date/Time Source Procedure Growth Status 06/14/17 17:45 Nasal Nares MRSA Culture - Final NO METHICILLIN RESISTANT STAPH AUREUS... 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 Await MRI brain and carotid doppler results (3) Acute ischemic stroke Assessment & Plan: See Neurology note. Await MRI brain and carotid doppler (4) Pre-diabetes (5) Hypertension Assessment & Plan: Continue lisinopril, coreg and prn clonidine (6) COPD (chronic obstructive pulmonary disease) (7) History of DVT (deep vein thrombosis) Assessment/Plan Discharge planning: Acute rehab @ [facility] [place] vs custodial fac DRAKE,MORENA Jun 16, 2017 18:57
--- NOTE | 2017-06-16 20:23 | Cardiology Report ---
APPROVED REPORT EKG Measurement Heart [id number] Normal sinus rhythm Minimal voltage criteria for LVH, may be normal variant Nonspecific T wave abnormality Abnormal ECG
--- NOTE | 2017-06-16 20:23 | Cardiology Report ---
APPROVED REPORT EKG Measurement Heart [id number] Normal sinus rhythm Minimal voltage criteria for LVH, may be normal variant Nonspecific T wave abnormality Abnormal ECG
--- NOTE | 2017-06-16 20:23 | Cardiology Report ---
APPROVED REPORT EKG Measurement Heart [id number] Normal sinus rhythm Minimal voltage criteria for LVH, may be normal variant Nonspecific T wave abnormality Abnormal ECG
[2017-06-16 20:25] VITALS: BP 154/95
[2017-06-16] MEDS ORDERED: Milk of Magnesia 30ml Ud ORAL PRN (20:30)
[2017-06-16] MEDS ORDERED: Albuterol/Ipratropium 3ml neb HHN PRN (22:15)
[2017-06-16] MEDS ORDERED: Morphine Sulfate 2mg/ml Inj IV PRN (22:15)
[2017-06-17] VITALS (8 sets, daily range): BP systolic 130–155; BP diastolic 72–101
[2017-06-17 07:04] LABS: ANION GAP 7 mmol/L (5-15); BLOOD UREA NITROGEN 22 mg/dL (7-18); CALCIUM 8.8 MG/DL (8.5-10.1); CARBON DIOXIDE 27 MMOL/L (21-32); CHLORIDE 106 MMOL/L (98-107); CREATININE 1.1 MG/DL (0.55-1.30); POTASSIUM 4.1 MMOL/L (3.5-5.1); SODIUM 140 MMOL/L (136-145)
[2017-06-17 07:08] LABS: BASOPHILS % (AUTO) 1.3 % (0.0-2.0); EOSINOPHILS % (AUTO) 2.5 % (0.0-3.0); HEMATOCRIT 44.8 % (42.0-52.0); HEMOGLOBIN 14.4 G/DL (14.2-18.0); LYMPHOCYTES % (AUTO) 35.3 % (20.0-45.0); MEAN CORPUSCULAR VOLUME 97 FL (80-99); MONOCYTES % (AUTO) 9.5 % (1.0-10.0); NEUTROPHILS % (AUTO) 51.4 % (45.0-75.0); PLATELET COUNT 182 K/UL (150-450); RED BLOOD COUNT 4.61 M/UL (4.70-6.10); RED CELL DISTRIBUTION WIDTH 12.7 % (11.6-14.8); WHITE BLOOD COUNT 3.6 K/UL (4.8-10.8)
[2017-06-17] MEDS: Aspirin Baby 81mg ORAL SCH (08:45)
[2017-06-17] MEDS: Heparin 5000 units/ml inj SUBQ SCH ×2 (08:47→20:58)
--- NOTE | 2017-06-17 11:57 | Diagnostic Imaging Report ---
APPROVED REPORT CPT Code: 36032 Present Symptoms Lower Extremity Pain: Lower Extremity Edema: Bilateral Stasis Disease BILATERAL: Imaging reveals a patent deep venous system bilaterally. There is no evidence of thrombus within the femoral, popliteal or tibial segments. The greater saphenous veins are also within normal limits. Doppler indicates normal spontaneous flow within these segments. Incidental finding: Right popliteal arterio-venous fistula. Area of swelling and calcification, right lateral knee.
--- NOTE | 2017-06-17 11:57 | Diagnostic Imaging Report ---
APPROVED REPORT CPT Code: 65235 Present Symptoms Lower Extremity Pain: Lower Extremity Edema: Bilateral Stasis Disease BILATERAL: Imaging reveals a patent deep venous system bilaterally. There is no evidence of thrombus within the femoral, popliteal or tibial segments. The greater saphenous veins are also within normal limits. Doppler indicates normal spontaneous flow within these segments. Incidental finding: Right popliteal arterio-venous fistula. Area of swelling and calcification, right lateral knee.
--- NOTE | 2017-06-17 11:57 | Diagnostic Imaging Report ---
APPROVED REPORT CPT Code: 21006 Present Symptoms Lower Extremity Pain: Lower Extremity Edema: Bilateral Stasis Disease BILATERAL: Imaging reveals a patent deep venous system bilaterally. There is no evidence of thrombus within the femoral, popliteal or tibial segments. The greater saphenous veins are also within normal limits. Doppler indicates normal spontaneous flow within these segments. Incidental finding: Right popliteal arterio-venous fistula. Area of swelling and calcification, right lateral knee.
[2017-06-17] MEDS ORDERED: Miralax 17gm pkt ORAL PRN (14:15)
--- NOTE | 2017-06-17 15:07 | Pulmonology Progress Note ---
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 (4) COPD (chronic obstructive pulmonary disease) Assessment/Plan dc planning to rehab for pt in process blood pressure controlled f/u Neuro evaluation med/surg continue current meds Subjective ROS Limited/Unobtainable: No Constitutional: Reports: no symptoms HEENT: Repors: no symptoms Respiratory: Reports: no symptoms Allergies: Coded Allergies: No Known Allergies (Verified , 12/21/06) Objective Last 24 Hour Vital Signs Date Time Temp Pulse Resp B/P (MAP) Pulse Ox O2 Delivery O2 Flow Rate FiO2 06/17/17 12:30 150/101 06/17/17 12:15 98.1 69 19 150/101 97 Room Air 06/17/17 12:00 98.0 69 19 150/101 97 Room Air 06/17/17 08:00 98.1 63 17 155/72 96 Room Air 06/17/17 07:13 74 18 Room Air 21 06/17/17 04:00 97.8 70 20 147/82 97 Room Air 06/17/17 00:00 97.9 71 21 149/87 98 Room Air 06/16/17 21:33 154/95 06/16/17 20:25 98.1 69 21 154/95 97 Room Air 06/16/17 19:30 70 20 Room Air 21 06/16/17 16:00 98.6 66 20 134/91 95 Room Air 06/16/17 16:00 74 General Appearance: WD/WN HEENT: normocephalic, atraumatic Respiratory/Chest: chest wall non-tender, lungs clear Cardiovascular: normal peripheral pulses, normal rate Abdomen: normal bowel sounds, soft, non tender Genitourinary: normal external genitalia Extremities: no clubbing 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 Complete Laboratory Tests 06/17/17 05:50: White Blood Count 3.6L, Red Blood Count 4.61L, Hemoglobin 14.4, Hematocrit 44.8 , Mean Corpuscular Volume 97, Mean Corpuscular Hemoglobin 31.1H, Mean Corpuscular Hemoglobin Concent 32.0, Red Cell Distribution Width 12.7, Platelet Count 182, Mean Platelet Volume 7.6, Neutrophils (%) (Auto) 51.4, Lymphocytes (% ) (Auto) 35.3, Monocytes (%) (Auto) 9.5, Eosinophils (%) (Auto) 2.5, Basophils ( %) (Auto) 1.3, Sodium Level 140, Potassium Level 4.1, Chloride Level 106, Carbon Dioxide Level 27, Anion Gap 7, Blood Urea Nitrogen 22H, Creatinine 1.1, Estimat Glomerular Filtration Rate > 60, Glucose Level 100, Calcium Level 8.8 Current Medications Medications (Trade) Dose Ordered Sig/Fabi Route PRN Reason Start Time Stop Time Status Last Admin Dose Admin Acetaminophen (Tylenol) 650 mg Q4H PRN ORAL Mild Pain (Pain Scale 1-3) 06/16/17 22:15 07/14/17 14:14 Albuterol/ Ipratropium (Albuterol/ Ipratropium) 3 ml Q4H PRN HHN Shortness of Breath 06/16/17 22:15 06/19/17 14:14 Aspirin (ASA) 81 mg DAILY ORAL 06/17/17 09:00 07/17/17 08:59 06/17/17 08:45 Atorvastatin Calcium (Lipitor) 10 mg BEDTIME ORAL 06/16/17 21:00 07/15/17 20:59 06/16/17 21:31 Clonidine HCl (Catapres) 0.1 mg Q4H PRN ORAL SBP >150 or DBP > 100 mmHg 06/16/17 22:45 07/15/17 10:44 06/17/17 12:30 Clopidogrel Bisulfate (Plavix) 75 mg DAILY ORAL 06/17/17 09:00 07/17/17 08:59 06/17/17 08:45 Dextrose (Dextrose 50%) STAT PRN IV Hypoglycemia 06/17/17 14:15 07/14/17 14:14 Heparin Sodium (Porcine) (Heparin 5000 units/ml) 5,000 units EVERY 12 HOURS SUBQ 06/16/17 21:00 07/14/17 20:59 06/17/17 08:47 Magnesium Hydroxide (Mom) 30 ml HSPRN PRN ORAL Constipation 06/16/17 20:30 07/16/17 20:29 Morphine Sulfate (Morphine Sulfate) 1 mg Q4H PRN IV For Pain Scale 4-10 06/16/17 22:15 06/21/17 14:14 Polyethylene Glycol (Miralax) 17 gm DAILYPRN PRN ORAL Constipation 06/17/17 14:15 07/14/17 14:14 Ranitidine HCl (Zantac) 150 mg TWICE A DAY ORAL 06/17/17 09:00 07/17/17 08:59 06/17/17 08:45 HELEN MURRAY Jun 17, 2017 15:07
--- NOTE | 2017-06-17 15:10 | Neurology Progress Note ---
Interim History Interim History ROS Limited/Unobtainable: No Complaints: unstable gait L side weakness nausea when supine Events: no change Interim History MRI bral tiny L jose acute stroke Objective Physical Exam Last Vital Signs Date Time Temp Pulse Resp B/P (MAP) Pulse Ox O2 Delivery O2 Flow Rate FiO2 06/17/17 12:30 150/101 06/17/17 12:15 98.1 69 19 97 Room Air 06/17/17 07:13 21 Laboratory Tests Test 06/17/17 05:50 White Blood Count 3.6 K/UL (4.8-10.8) L Red Blood Count 4.61 M/UL (4.70-6.10) L Hemoglobin 14.4 G/DL (14.2-18.0) Hematocrit 44.8 % (42.0-52.0) Mean Corpuscular Volume 97 FL (80-99) Mean Corpuscular Hemoglobin 31.1 PG (27.0-31.0) H Mean Corpuscular Hemoglobin Concent 32.0 G/DL (32.0-36.0) Red Cell Distribution Width 12.7 % (11.6-14.8) Platelet Count 182 K/UL (150-450) Mean Platelet Volume 7.6 FL (6.5-10.1) Neutrophils (%) (Auto) 51.4 % (45.0-75.0) Lymphocytes (%) (Auto) 35.3 % (20.0-45.0) Monocytes (%) (Auto) 9.5 % (1.0-10.0) Eosinophils (%) (Auto) 2.5 % (0.0-3.0) Basophils (%) (Auto) 1.3 % (0.0-2.0) Sodium Level 140 MMOL/L (136-145) Potassium Level 4.1 MMOL/L (3.5-5.1) Chloride Level 106 MMOL/L (98-107) Carbon Dioxide Level 27 MMOL/L (21-32) Anion Gap 7 mmol/L (5-15) Blood Urea Nitrogen 22 mg/dL (7-18) H Creatinine 1.1 MG/DL (0.55-1.30) Estimat Glomerular Filtration Rate > 60 mL/min (>60) Glucose Level 100 MG/DL (74-106) Calcium Level 8.8 MG/DL (8.5-10.1) General: well developed, no acute distress Head: atraumatic Neurologic Exam Mental Status: awake, alert, other - forgetful Speech: no dysarthia Language: no aphasia Cranial Nerve II: no papilledema Cranial Nerves III, IV, : pupils Cranial Nerve V: masseters function normal Cranial Nerve VII: normal facial expressions Cranial Nerve VIII: no nystagmus Cranial Nerve IX: gag response Cranial Nerve XI: trapezii function normal Cranial Nerve XII: no tongue atrophy/fasciculations Motor System: no involuntary movement, no muscle wasting, other - rigidity L>R Sensory: normal pinprick Coordination: other - clumsy BUE, + romberg Deep Tendon Reflexes: 0 bicep (L), 0 bicep (R), 0 tricep (L), 0 tricep (R), 0 brachioradialis (L), 0 brachioradialis (R), 0 knee (L), 0 knee (R), 0 ankle (L) , 0 ankle (R) Reflexes: mute plantar (L), mute plantar (R) Gait: other - unstable Impression/Recommendations Problems: (1) acute L pontine lacunar stroke (2) 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
--- NOTE | 2017-06-17 19:20 | Internal Med Progress Note ---
Subjective Date of Service: Jun 17, 2017 Physician Name Morena Drake Attending Physician Bienvenido Alfonso MD Current Medications Medications (Trade) Dose Ordered Sig/Fabi Route PRN Reason Start Time Stop Time Status Last Admin Dose Admin Acetaminophen (Tylenol) 650 mg Q4H PRN ORAL Mild Pain (Pain Scale 1-3) 06/16/17 22:15 07/14/17 14:14 Albuterol/ Ipratropium (Albuterol/ Ipratropium) 3 ml Q4H PRN HHN Shortness of Breath 06/16/17 22:15 06/19/17 14:14 Aspirin (ASA) 81 mg DAILY ORAL 06/17/17 09:00 07/17/17 08:59 06/17/17 08:45 Atorvastatin Calcium (Lipitor) 10 mg BEDTIME ORAL 06/16/17 21:00 07/15/17 20:59 06/16/17 21:31 Clonidine HCl (Catapres) 0.1 mg Q4H PRN ORAL SBP >150 or DBP > 100 mmHg 06/16/17 22:45 07/15/17 10:44 06/17/17 12:30 Clopidogrel Bisulfate (Plavix) 75 mg DAILY ORAL 06/17/17 09:00 07/17/17 08:59 06/17/17 08:45 Dextrose (Dextrose 50%) STAT PRN IV Hypoglycemia 06/17/17 14:15 07/14/17 14:14 Heparin Sodium (Porcine) (Heparin 5000 units/ml) 5,000 units EVERY 12 HOURS SUBQ 06/16/17 21:00 07/14/17 20:59 06/17/17 08:47 Magnesium Hydroxide (Mom) 30 ml HSPRN PRN ORAL Constipation 06/16/17 20:30 07/16/17 20:29 Morphine Sulfate (Morphine Sulfate) 1 mg Q4H PRN IV For Pain Scale 4-10 06/16/17 22:15 06/21/17 14:14 Polyethylene Glycol (Miralax) 17 gm DAILYPRN PRN ORAL Constipation 06/17/17 14:15 07/14/17 14:14 Ranitidine HCl (Zantac) 150 mg TWICE A DAY ORAL 06/17/17 09:00 07/17/17 08:59 06/17/17 17:49 Allergies: Coded Allergies: No Known Allergies (Verified , 12/21/06) Subjective 62 YO M admitted with right leg weakness. Now acute cerebral vascular accident. Cover for Int Med-Dr Alfonso. Await acceptance at Rehab on [place] Objective Last Vital Signs Date Time Temp Pulse Resp B/P (MAP) Pulse Ox O2 Delivery O2 Flow Rate FiO2 06/17/17 16:09 98.6 95 22 133/81 97 Room Air 06/17/17 07:13 21 Laboratory Tests Test 06/17/17 05:50 White Blood Count 3.6 K/UL (4.8-10.8) L Red Blood Count 4.61 M/UL (4.70-6.10) L Hemoglobin 14.4 G/DL (14.2-18.0) Hematocrit 44.8 % (42.0-52.0) Mean Corpuscular Volume 97 FL (80-99) Mean Corpuscular Hemoglobin 31.1 PG (27.0-31.0) H Mean Corpuscular Hemoglobin Concent 32.0 G/DL (32.0-36.0) Red Cell Distribution Width 12.7 % (11.6-14.8) Platelet Count 182 K/UL (150-450) Mean Platelet Volume 7.6 FL (6.5-10.1) Neutrophils (%) (Auto) 51.4 % (45.0-75.0) Lymphocytes (%) (Auto) 35.3 % (20.0-45.0) Monocytes (%) (Auto) 9.5 % (1.0-10.0) Eosinophils (%) (Auto) 2.5 % (0.0-3.0) Basophils (%) (Auto) 1.3 % (0.0-2.0) Sodium Level 140 MMOL/L (136-145) Potassium Level 4.1 MMOL/L (3.5-5.1) Chloride Level 106 MMOL/L (98-107) Carbon Dioxide Level 27 MMOL/L (21-32) Anion Gap 7 mmol/L (5-15) Blood Urea Nitrogen 22 mg/dL (7-18) H Creatinine 1.1 MG/DL (0.55-1.30) Estimat Glomerular Filtration Rate > 60 mL/min (>60) Glucose Level 100 MG/DL (74-106) Calcium Level 8.8 MG/DL (8.5-10.1) Intake and Output 06/17/17 06/18/17 19:00 07:00 Intake Total 240 ml 480 ml Balance 240 ml 480 ml Intake Oral 240 ml 480 ml Objective General Appearance: WD/WN, no apparent distress, alert EENT: PERRL/EOMI, normal ENT inspection, TMs normal Neck: non-tender, normal alignment, supple Cardiovascular: normal peripheral pulses, normal rate, regular rhythm, no gallop/murmur, no JVD Respiratory/Chest: chest wall non-tender, lungs clear, normal breath sounds, no respiratory distress, no accessory muscle use Abdomen: normal bowel sounds, non tender, soft, no organomegaly, no mass 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 Await MRI brain and carotid doppler results (3) Acute ischemic stroke Assessment & Plan: See Neurology note. Await MRI brain and carotid doppler (4) Pre-diabetes (5) Hypertension Assessment & Plan: Continue lisinopril, coreg and prn clonidine (6) COPD (chronic obstructive pulmonary disease) (7) History of DVT (deep vein thrombosis) Status: stable Assessment/Plan Discharge planning: Rehab on [place] when accepted MORENA DRAKE Jun 17, 2017 19:20
[2017-06-18 04:00] VITALS: BP 152/92
[2017-06-18 07:51] VITALS: BP 106/58
[2017-06-18] MEDS: Aspirin Baby 81mg ORAL SCH (08:39)
[2017-06-18] MEDS: Heparin 5000 units/ml inj SUBQ SCH ×2 (08:40→20:19)
[2017-06-18 11:26] VITALS: BP 140/74
--- NOTE | 2017-06-18 12:55 | Internal Med Progress Note ---
Subjective Date of Service: Jun 18, 2017 Physician Name Morena Drake Attending Physician Bienvenido Alfonso MD Current Medications Medications (Trade) Dose Ordered Sig/Fabi Route PRN Reason Start Time Stop Time Status Last Admin Dose Admin Acetaminophen (Tylenol) 650 mg Q4H PRN ORAL Mild Pain (Pain Scale 1-3) 06/16/17 22:15 07/14/17 14:14 Albuterol/ Ipratropium (Albuterol/ Ipratropium) 3 ml Q4H PRN HHN Shortness of Breath 06/16/17 22:15 06/19/17 14:14 Aspirin (ASA) 81 mg DAILY ORAL 06/17/17 09:00 07/17/17 08:59 06/18/17 08:39 Atorvastatin Calcium (Lipitor) 10 mg BEDTIME ORAL 06/16/17 21:00 07/15/17 20:59 06/17/17 20:57 Clonidine HCl (Catapres) 0.1 mg Q4H PRN ORAL SBP >150 or DBP > 100 mmHg 06/16/17 22:45 07/15/17 10:44 06/18/17 05:54 Clopidogrel Bisulfate (Plavix) 75 mg DAILY ORAL 06/17/17 09:00 07/17/17 08:59 06/18/17 08:39 Dextrose (Dextrose 50%) STAT PRN IV Hypoglycemia 06/17/17 14:15 07/14/17 14:14 Heparin Sodium (Porcine) (Heparin 5000 units/ml) 5,000 units EVERY 12 HOURS SUBQ 06/16/17 21:00 07/14/17 20:59 06/18/17 08:40 Magnesium Hydroxide (Mom) 30 ml HSPRN PRN ORAL Constipation 06/16/17 20:30 07/16/17 20:29 Morphine Sulfate (Morphine Sulfate) 1 mg Q4H PRN IV For Pain Scale 4-10 06/16/17 22:15 06/21/17 14:14 Polyethylene Glycol (Miralax) 17 gm DAILYPRN PRN ORAL Constipation 06/17/17 14:15 07/14/17 14:14 06/18/17 12:50 Ranitidine HCl (Zantac) 150 mg TWICE A DAY ORAL 06/17/17 09:00 07/17/17 08:59 06/18/17 08:39 Allergies: Coded Allergies: No Known Allergies (Verified , 12/21/06) ROS Limited/Unobtainable: No Constitutional: Reports: no symptoms HEENT: Reports: no symptoms Cardiovascular: Reports: no symptoms Respiratory: Reports: no symptoms Gastrointestinal/Abdominal: Reports: no symptoms Genitourinary: Reports: no symptoms Neurologic/Psychiatric: Reports: no symptoms Subjective 62 YO M admitted with right leg weakness. Now acute cerebral vascular accident. Cover for Int Med-Dr Alfonso. Await acceptance at Rehab on [address] [place] Objective Last Vital Signs Date Time Temp Pulse Resp B/P (MAP) Pulse Ox O2 Delivery O2 Flow Rate FiO2 06/18/17 11:26 98.0 60 20 140/74 96 Room Air 06/18/17 07:48 21 Objective General Appearance: WD/WN, no apparent distress, alert EENT: PERRL/EOMI, normal ENT inspection, TMs normal Neck: non-tender, normal alignment, supple Cardiovascular: normal peripheral pulses, normal rate, regular rhythm, no gallop/murmur, no JVD Respiratory/Chest: chest wall non-tender, lungs clear, normal breath sounds, no respiratory distress, no accessory muscle use Abdomen: normal bowel sounds, non tender, soft, no organomegaly, no mass 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 Await MRI brain and carotid doppler results (3) Acute ischemic stroke Assessment & Plan: See Neurology note. Await MRI brain and carotid doppler (4) Pre-diabetes (5) Hypertension Assessment & Plan: Continue lisinopril, coreg and prn clonidine (6) COPD (chronic obstructive pulmonary disease) (7) History of DVT (deep vein thrombosis) Status: stable Assessment/Plan Discharge planning: Rehab on [address] [place] when accepted MORENA DRAKE Jun 18, 2017 12:55
[2017-06-18 15:38] VITALS: BP 150/76
--- NOTE | 2017-06-18 17:21 | Pulmonology Progress Note ---
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 (4) COPD (chronic obstructive pulmonary disease) Assessment/Plan dc planning to rehab for pt in process blood pressure controlled f/u Neuro evaluation med/surg continue current meds Subjective ROS Limited/Unobtainable: No Constitutional: Reports: no symptoms HEENT: Repors: no symptoms Respiratory: Reports: no symptoms Allergies: Coded Allergies: No Known Allergies (Verified , 12/21/06) Objective Last 24 Hour Vital Signs Date Time Temp Pulse Resp B/P (MAP) Pulse Ox O2 Delivery O2 Flow Rate FiO2 06/18/17 15:38 97.9 63 19 150/76 95 Room Air 06/18/17 11:26 98.0 60 20 140/74 96 Room Air 06/18/17 07:51 98.2 65 20 106/58 96 Room Air 06/18/17 07:48 75 18 Room Air 21 06/18/17 05:54 152/92 06/18/17 04:00 98.1 54 18 152/92 94 Room Air 06/17/17 23:57 98.9 63 18 130/74 96 Room Air 06/17/17 19:57 99.9 64 18 134/76 95 Room Air 06/17/17 19:15 72 18 Room Air 21 General Appearance: WD/WN HEENT: normocephalic, atraumatic, anicteric Respiratory/Chest: chest wall non-tender, lungs clear Cardiovascular: normal peripheral pulses, normal rate Abdomen: normal bowel sounds, soft, non tender Genitourinary: normal external genitalia Extremities: no cyanosis Neurologic/Psychiatric: senior gamemaster II-XII grossly normal, no motor/sensory deficits Current Medications Medications (Trade) Dose Ordered Sig/Fabi Route PRN Reason Start Time Stop Time Status Last Admin Dose Admin Acetaminophen (Tylenol) 650 mg Q4H PRN ORAL Mild Pain (Pain Scale 1-3) 06/16/17 22:15 07/14/17 14:14 Albuterol/ Ipratropium (Albuterol/ Ipratropium) 3 ml Q4H PRN HHN Shortness of Breath 06/16/17 22:15 06/19/17 14:14 Aspirin (ASA) 81 mg DAILY ORAL 06/17/17 09:00 07/17/17 08:59 06/18/17 08:39 Atorvastatin Calcium (Lipitor) 10 mg BEDTIME ORAL 06/16/17 21:00 07/15/17 20:59 06/17/17 20:57 Clonidine HCl (Catapres) 0.1 mg Q4H PRN ORAL SBP >150 or DBP > 100 mmHg 06/16/17 22:45 07/15/17 10:44 06/18/17 05:54 Clopidogrel Bisulfate (Plavix) 75 mg DAILY ORAL 06/17/17 09:00 07/17/17 08:59 06/18/17 08:39 Dextrose (Dextrose 50%) STAT PRN IV Hypoglycemia 06/17/17 14:15 07/14/17 14:14 Heparin Sodium (Porcine) (Heparin 5000 units/ml) 5,000 units EVERY 12 HOURS SUBQ 06/16/17 21:00 07/14/17 20:59 06/18/17 08:40 Magnesium Hydroxide (Mom) 30 ml HSPRN PRN ORAL Constipation 06/16/17 20:30 07/16/17 20:29 Morphine Sulfate (Morphine Sulfate) 1 mg Q4H PRN IV For Pain Scale 4-10 06/16/17 22:15 06/21/17 14:14 Polyethylene Glycol (Miralax) 17 gm DAILYPRN PRN ORAL Constipation 06/17/17 14:15 07/14/17 14:14 06/18/17 12:50 Ranitidine HCl (Zantac) 150 mg TWICE A DAY ORAL 06/17/17 09:00 07/17/17 08:59 06/18/17 08:39 HELEN MURRAY Jun 18, 2017 17:21
[2017-06-18 18:40] VITALS: BP 148/72
[2017-06-18 20:00] VITALS: BP 156/88
[2017-06-19] VITALS: BP 144/80
[2017-06-19 03:14] VITALS: BP 143/86
[2017-06-19 06:54] LABS: HEMATOCRIT 44.5 % (42.0-52.0); HEMOGLOBIN 13.4 G/DL (14.2-18.0); MEAN CORPUSCULAR VOLUME 100 FL (80-99); PLATELET COUNT 174 K/UL (150-450); RED BLOOD COUNT 4.45 M/UL (4.70-6.10); RED CELL DISTRIBUTION WIDTH 12.9 % (11.6-14.8); WHITE BLOOD COUNT 3.3 K/UL (4.8-10.8)
[2017-06-19 07:09] LABS: ANION GAP 9 mmol/L (5-15); BLOOD UREA NITROGEN 20 mg/dL (7-18); CALCIUM 8.7 MG/DL (8.5-10.1); CARBON DIOXIDE 27 MMOL/L (21-32); CHLORIDE 107 MMOL/L (98-107); CREATININE 1.2 MG/DL (0.55-1.30); POTASSIUM 3.8 MMOL/L (3.5-5.1); SODIUM 143 MMOL/L (136-145)
[2017-06-19 08:00] VITALS: BP 87/49
[2017-06-19] MEDS: Aspirin Baby 81mg ORAL SCH (09:24)
[2017-06-19] MEDS: Heparin 5000 units/ml inj SUBQ SCH (09:25)
[2017-06-19 12:00] VITALS: BP 148/82
[2017-06-19 16:22] VITALS: BP 141/95
--- NOTE | 2017-06-19 18:45 | Pulmonology Progress Note ---
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 (4) COPD (chronic obstructive pulmonary disease) Assessment/Plan dc planning to rehab for pt in process blood pressure controlled f/u Neuro evaluation med/surg continue current meds Subjective ROS Limited/Unobtainable: No Constitutional: Reports: no symptoms HEENT: Repors: no symptoms Respiratory: Reports: no symptoms Allergies: Coded Allergies: No Known Allergies (Verified , 12/21/06) Objective Last 24 Hour Vital Signs Date Time Temp Pulse Resp B/P (MAP) Pulse Ox O2 Delivery O2 Flow Rate FiO2 06/19/17 16:22 98.2 65 20 141/95 97 Room Air 06/19/17 12:00 97.2 63 20 148/82 96 Room Air 06/19/17 08:15 76 18 Room Air 21 06/19/17 08:00 97.3 62 20 87/49 97 Room Air 06/19/17 03:14 97.0 62 20 143/86 98 Room Air 06/19/17 00:00 97.5 68 19 144/80 96 Room Air 06/18/17 20:03 66 18 Room Air 21 06/18/17 20:00 97.5 70 19 156/88 97 Room Air Intake and Output 06/19/17 06/20/17 19:00 07:00 Intake Total 600 ml Output Total 200 ml Balance 400 ml Intake Oral 600 ml Output Urine Total 200 ml # Voids 2 Objective General Appearance: WD/WN, no apparent distress Lines, tubes and drains: peripheral, HEENT: normocephalic, anicteric Neck: non-tender, normal alignment Respiratory/Chest: chest wall non-tender, lungs clear Cardiovascular/Chest: normal rate, regular rhythm Abdomen: non tender, soft Genitourinary/Rectal: normal genital exam, normal rectal exam Extremities: normal range of motion, non-pitting Laboratory Tests 06/19/17 05:40: White Blood Count 3.3L, Red Blood Count 4.45L, Hemoglobin 13.4L, Hematocrit 44.5 , Mean Corpuscular Volume 100H, Mean Corpuscular Hemoglobin 30.0, Mean Corpuscular Hemoglobin Concent 30.0L, Red Cell Distribution Width 12.9, Platelet Count 174, Mean Platelet Volume 8.2, Neutrophils (%) (Auto) , Lymphocytes (%) (Auto) , Monocytes (%) (Auto) , Eosinophils (%) (Auto) , Basophils (%) (Auto) , Differential Total Cells Counted 100, Neutrophils % ( Manual) 50, Lymphocytes % (Manual) 36, Monocytes % (Manual) 13H, Eosinophils % ( Manual) 1, Basophils % (Manual) 0, Band Neutrophils 0, Platelet Estimate Adequate, Platelet Morphology Normal, Red Blood Cell Morphology Normal, Sodium Level 143, Potassium Level 3.8, Chloride Level 107, Carbon Dioxide Level 27, Anion Gap 9, Blood Urea Nitrogen 20H, Creatinine 1.2, Estimat Glomerular Filtration Rate > 60, Glucose Level 124H, Calcium Level 8.7 Current Medications Medications (Trade) Dose Ordered Sig/Fabi Route PRN Reason Start Time Stop Time Status Last Admin Dose Admin Acetaminophen (Tylenol) 650 mg Q4H PRN ORAL Mild Pain (Pain Scale 1-3) 06/16/17 22:15 07/14/17 14:14 06/18/17 20:07 Aspirin (ASA) 81 mg DAILY ORAL 06/17/17 09:00 07/17/17 08:59 06/19/17 09:24 Atorvastatin Calcium (Lipitor) 10 mg BEDTIME ORAL 06/16/17 21:00 07/15/17 20:59 06/18/17 20:08 Clonidine HCl (Catapres) 0.1 mg Q4H PRN ORAL SBP >150 or DBP > 100 mmHg 06/16/17 22:45 07/15/17 10:44 06/18/17 17:38 Clopidogrel Bisulfate (Plavix) 75 mg DAILY ORAL 06/17/17 09:00 07/17/17 08:59 06/19/17 09:24 Dextrose (Dextrose 50%) STAT PRN IV Hypoglycemia 06/17/17 14:15 07/14/17 14:14 Heparin Sodium (Porcine) (Heparin 5000 units/ml) 5,000 units EVERY 12 HOURS SUBQ 06/16/17 21:00 07/14/17 20:59 06/19/17 09:25 Magnesium Hydroxide (Mom) 30 ml HSPRN PRN ORAL Constipation 06/16/17 20:30 07/16/17 20:29 06/18/17 20:19 Morphine Sulfate (Morphine Sulfate) 1 mg Q4H PRN IV For Pain Scale 4-10 06/16/17 22:15 06/21/17 14:14 Polyethylene Glycol (Miralax) 17 gm DAILYPRN PRN ORAL Constipation 06/17/17 14:15 07/14/17 14:14 06/18/17 12:50 Ranitidine HCl (Zantac) 150 mg TWICE A DAY ORAL 06/17/17 09:00 07/17/17 08:59 06/19/17 17:55 HELEN MURRAY Jun 19, 2017 18:45
--- NOTE | 2017-06-19 19:24 | Internal Med Progress Note ---
Subjective Date of Service: Jun 19, 2017 Physician Name Morena Drake Attending Physician Bienvenido Alfonso MD Current Medications Medications (Trade) Dose Ordered Sig/Fabi Route PRN Reason Start Time Stop Time Status Last Admin Dose Admin Acetaminophen (Tylenol) 650 mg Q4H PRN ORAL Mild Pain (Pain Scale 1-3) 06/16/17 22:15 07/14/17 14:14 06/18/17 20:07 Aspirin (ASA) 81 mg DAILY ORAL 06/17/17 09:00 07/17/17 08:59 06/19/17 09:24 Atorvastatin Calcium (Lipitor) 10 mg BEDTIME ORAL 06/16/17 21:00 07/15/17 20:59 06/18/17 20:08 Clonidine HCl (Catapres) 0.1 mg Q4H PRN ORAL SBP >150 or DBP > 100 mmHg 06/16/17 22:45 07/15/17 10:44 06/18/17 17:38 Clopidogrel Bisulfate (Plavix) 75 mg DAILY ORAL 06/17/17 09:00 07/17/17 08:59 06/19/17 09:24 Dextrose (Dextrose 50%) STAT PRN IV Hypoglycemia 06/17/17 14:15 07/14/17 14:14 Heparin Sodium (Porcine) (Heparin 5000 units/ml) 5,000 units EVERY 12 HOURS SUBQ 06/16/17 21:00 07/14/17 20:59 06/19/17 09:25 Magnesium Hydroxide (Mom) 30 ml HSPRN PRN ORAL Constipation 06/16/17 20:30 07/16/17 20:29 06/18/17 20:19 Morphine Sulfate (Morphine Sulfate) 1 mg Q4H PRN IV For Pain Scale 4-10 06/16/17 22:15 06/21/17 14:14 Polyethylene Glycol (Miralax) 17 gm DAILYPRN PRN ORAL Constipation 06/17/17 14:15 07/14/17 14:14 06/18/17 12:50 Ranitidine HCl (Zantac) 150 mg TWICE A DAY ORAL 06/17/17 09:00 07/17/17 08:59 06/19/17 17:55 Allergies: Coded Allergies: No Known Allergies (Verified , 12/21/06) ROS Limited/Unobtainable: No Constitutional: Reports: no symptoms HEENT: Reports: no symptoms Cardiovascular: Reports: no symptoms Respiratory: Reports: no symptoms Gastrointestinal/Abdominal: Reports: no symptoms Genitourinary: Reports: no symptoms Neurologic/Psychiatric: Reports: no symptoms Subjective 62 YO M admitted with right leg weakness. Now acute cerebral vascular accident. Cover for [facility]-Dr Alfonso. Patient refused placement at Rehab on [place]; wishes to discharge home Objective Last Vital Signs Date Time Temp Pulse Resp B/P (MAP) Pulse Ox O2 Delivery O2 Flow Rate FiO2 06/19/17 16:22 98.2 65 20 141/95 97 Room Air 06/19/17 08:15 21 Laboratory Tests Test 06/19/17 05:40 White Blood Count 3.3 K/UL (4.8-10.8) L Red Blood Count 4.45 M/UL (4.70-6.10) L Hemoglobin 13.4 G/DL (14.2-18.0) L Hematocrit 44.5 % (42.0-52.0) Mean Corpuscular Volume 100 FL (80-99) H Mean Corpuscular Hemoglobin 30.0 PG (27.0-31.0) Mean Corpuscular Hemoglobin Concent 30.0 G/DL (32.0-36.0) L Red Cell Distribution Width 12.9 % (11.6-14.8) Platelet Count 174 K/UL (150-450) Mean Platelet Volume 8.2 FL (6.5-10.1) Neutrophils (%) (Auto) % (45.0-75.0) Lymphocytes (%) (Auto) % (20.0-45.0) Monocytes (%) (Auto) % (1.0-10.0) Eosinophils (%) (Auto) % (0.0-3.0) Basophils (%) (Auto) % (0.0-2.0) Differential Total Cells Counted 100 Neutrophils % (Manual) 50 % (45-75) Lymphocytes % (Manual) 36 % (20-45) Monocytes % (Manual) 13 % (1-10) H Eosinophils % (Manual) 1 % (0-3) Basophils % (Manual) 0 % (0-2) Band Neutrophils 0 % (0-8) Platelet Estimate Adequate Platelet Morphology Normal Red Blood Cell Morphology Normal Sodium Level 143 MMOL/L (136-145) Potassium Level 3.8 MMOL/L (3.5-5.1) Chloride Level 107 MMOL/L (98-107) Carbon Dioxide Level 27 MMOL/L (21-32) Anion Gap 9 mmol/L (5-15) Blood Urea Nitrogen 20 mg/dL (7-18) H Creatinine 1.2 MG/DL (0.55-1.30) Estimat Glomerular Filtration Rate > 60 mL/min (>60) Glucose Level 124 MG/DL (74-106) H Calcium Level 8.7 MG/DL (8.5-10.1) Intake and Output 06/19/17 06/20/17 19:00 07:00 Intake Total 900 ml Output Total 200 ml Balance 700 ml Intake Oral 900 ml Output Urine Total 200 ml # Voids 6 Objective General Appearance: WD/WN, no apparent distress, alert EENT: PERRL/EOMI, normal ENT inspection, TMs normal Neck: non-tender, normal alignment, supple Cardiovascular: normal peripheral pulses, normal rate, regular rhythm, no gallop/murmur, no JVD Respiratory/Chest: chest wall non-tender, lungs clear, normal breath sounds, no respiratory distress, no accessory muscle use Abdomen: normal bowel sounds, non tender, soft, no organomegaly, no mass Neurologic: multifocal button inspector II-XII grossly normal, other - weakness right leg Skin: normal pigmentation, warm/dry Assessment/Plan Problem List: (1) Paresthesia (2) Weakness of right leg Assessment & Plan: Due to acute stroke. Await MRI brain and carotid doppler results (3) Acute ischemic stroke Assessment & Plan: See Neurology note. Await MRI brain and carotid doppler (4) Pre-diabetes (5) Hypertension Assessment & Plan: Continue lisinopril, coreg and prn clonidine (6) COPD (chronic obstructive pulmonary disease) (7) History of DVT (deep vein thrombosis) Assessment/Plan Discharge planning: Patient refused placement at Rehab on [place]-await discharge home MORENA DRAKE Jun 19, 2017 19:24
--- NOTE | 2017-06-20 14:14 | Diagnostic Imaging Report ---
APPROVED REPORT CPT Code: 65227 Vascular Symptoms CVA/TIA: CAROTID (BILATERAL) - Imaging reveals no significant plaque within the right and left extracranial carotid arteries. The Doppler spectral flow analysis is within normal limits throughout the extracranial carotid arteries bilaterally. VERTEBRAL- The vertebral arteries are within normal limits.
--- NOTE | 2017-06-20 14:14 | Diagnostic Imaging Report ---
APPROVED REPORT CPT Code: 85227 Vascular Symptoms CVA/TIA: CAROTID (BILATERAL) - Imaging reveals no significant plaque within the right and left extracranial carotid arteries. The Doppler spectral flow analysis is within normal limits throughout the extracranial carotid arteries bilaterally. VERTEBRAL- The vertebral arteries are within normal limits.
--- NOTE | 2017-06-20 14:14 | Diagnostic Imaging Report ---
APPROVED REPORT CPT Code: 52909 Vascular Symptoms CVA/TIA: CAROTID (BILATERAL) - Imaging reveals no significant plaque within the right and left extracranial carotid arteries. The Doppler spectral flow analysis is within normal limits throughout the extracranial carotid arteries bilaterally. VERTEBRAL- The vertebral arteries are within normal limits.
--- NOTE | 2017-06-20 15:50 | Discharge Summary ---
Discharge Summary Hospital Course Date of Admission Jun 14, 2017 at 13:00 Date of Discharge Jun 19, 2017 at 20:15 Admitting Diagnosis cva HPI Carlos Rubalcava is a 62 year old male who was admitted on Jun 14, 2017 at 13:00 for Cerebral Vascular Accident Hospital Course [id number] Discharge Discharge Disposition Patient was discharged to Home (01) Discharge Diagnoses: Rosenda Jade NP Jun 20, 2017 15:50
--- NOTE | 2017-06-20 15:50 | Discharge Summary ---
Discharge Summary Hospital Course Date of Admission Jun 14, 2017 at 13:00 Date of Discharge Jun 19, 2017 at 20:15 Admitting Diagnosis cva HPI Carlos Rubalcava is a 62 year old male who was admitted on Jun 14, 2017 at 13:00 for Cerebral Vascular Accident Hospital Course [id number] Discharge Discharge Disposition Patient was discharged to Home (01) Discharge Diagnoses: Rosenda Jade NP Jun 20, 2017 15:50
--- NOTE | 2017-06-20 15:50 | Discharge Summary ---
Discharge Summary Hospital Course Date of Admission Jun 14, 2017 at 13:00 Date of Discharge Jun 19, 2017 at 20:15 Admitting Diagnosis cva HPI Carlos Rubalcava is a 62 year old male who was admitted on Jun 14, 2017 at 13:00 for Cerebral Vascular Accident Hospital Course [id number] Discharge Discharge Disposition Patient was discharged to Home (01) Discharge Diagnoses: Rosenda Jade NP Jun 20, 2017 15:50
--- NOTE | 2017-06-21 01:30 | Discharge Summary 2 SIG ---
DATE OF ADMISSION: 06/14/2017 DATE OF DISCHARGE: 06/19/2017 CONSULTANTS: 1. Franco Ibrahim M.D. 2. Wilner Pandya M.D. BRIEF HOSPITAL COURSE: The patient is a 62-year-old male, who presented to the ED complaining he had a stroke. He has a history of 2 strokes in this year where he was admitted to [facility]. He presented to [facility] emergency room complaining of one day tingling and weakness on the right leg. On evaluation, CT of the head showed multiple lacunar infarcts in the bilateral caudate nuclei and bilateral thalami. Chest x-ray done was negative except for atherosclerotic changes seen. He was admitted to telemetry for CVA. He underwent neurologic evaluation. He presented with acute onset of right-sided weakness and had a fall for the past couple of days. Toxicology was negative for alcohol and chemistry was unremarkable. He admitted to noncompliance with medications. Neurological examination done represents new lacunar infarct in the left middle cerebral artery distribution. He was started on aspirin and Plavix and was continued on Lipitor. He underwent brain MRI that showed acute CVA in the posterior aspect of the jose. Carotid ultrasound showed no significant plaques within the right and left extracranial carotid artery. Vertebral arteries were within normal limits. He was given physical therapy and was advised he would benefit from a more structured environment. He was referred to a detention, however, refused placement. He was eventually discharged home. FINAL DIAGNOSES: 1. Acute cerebrovascular accident. 2. Hypertension. 3. History of deep venous thrombosis. 4. Multiple cerebral infarcts with ataxia. 5. Chronic obstructive pulmonary disease. 6. History of tuberculosis, status post treatment seven years ago. 7. Noncompliance with medications. DISPOSITION: The patient was discharged home. DISCHARGE MEDICATIONS: Refer to medication list. FOLLOWUP: The patient was advised to follow up with PMD in a week. Bienvenido Alfonso M.D. I have been assigned to dictate discharge summary on this account and I was not involved in the patient's management. Rosenda Jade N.P. DR: CHAIM JOB#: [id number] CC: CHARLY
== END 2017-06-19 20:15 | disposition home or self-care (01) | DRG 45 ==
LOC: EMR 08:31 → EDBEDREQ 12:45 → 2E 13:00 → 4E 06-16 20:10
DX: I63.8 Other cerebral infarction (principal); G81.91 Hemiplegia, unspecified affecting right dominant side; I10 Essential (primary) hypertension; J44.9 Chronic obstructive pulmonary disease, unspecified; Z91.19 Patient's noncompliance with other medical treatment and regimen; R73.03 Prediabetes; Z86.718 Personal history of other venous thrombosis and embolism; Z86.711 Personal history of pulmonary embolism; Z86.11 Personal history of tuberculosis; R27.0 Ataxia, unspecified; R20.2 Paresthesia of skin
CPT/HCPCS: 36415; 70450; 70553; 71010; 80048; 80053; 80061; 80329; 82962; 83036; 83735; 84443; 85007; 85025; 85610; 85730; 87081; 90630; 90732; 93005; 93880; 93970; 94664; 99285; A9585

== ENCOUNTER 2017-06-24 13:18 | Emergency (ER) | payer OTHER ==
[~2017-06-24] VITALS: Ht 172.7 cm; Wt 81.6 kg
[~2017-06-24 13:18] MED LIST changes: +blood thinner
[2017-06-24 13:31] VITALS: BP 167/92
--- NOTE | 2017-06-24 13:37 | Emergency Room Report ---
History of Present Illness General Chief Complaint: Medication Refill Present Illness HPI 62-year-old male presents to the emergency department requesting medication refill/prescriptions for his medications. Patient does not know the name of the medications for which she is prescribed. Patient states that he was recently discharged from the hospital after several days of admission and was not given clear follow up instructions nor refills of his medications. Patient denies abdominal pain, nausea, vomiting, fevers, chills, lower extremity edema, difficulty breathing, dyspnea. Denies CP, Palpitations, LOC, AMS, dizziness, Changes in Vision, Sensation, paresthesias, or a sudden severe headache. Allergies: Coded Allergies: No Known Allergies (Verified , 12/21/06) Patient History Past Medical History: none, see triage record, HTN, CVA/TIA Past Surgical History: none Pertinent Family History: none Reviewed Nursing Documentation: PMH: Agreed, PSxH: Agreed Nursing Documentation-PMH Hx Cardiac Problems: Yes Hx Hypertension: Yes Hx COPD: Yes Hx Diabetes: Yes - "Pre diabetes" Hx Cancer: No Hx Gastrointestinal Problems: No Hx Dialysis: No Hx Neurological Problems: No Hx Cerebrovascular Accident: Yes - 2017 Hx Weakness: Yes Review of Systems All Other Systems: negative except mentioned in HPI Physical Exam Vital Signs Date Time Temp Pulse Resp B/P (MAP) Pulse Ox O2 Delivery O2 Flow Rate FiO2 06/24/17 13:24 97.2 70 20 167/92 97 Room Air Sp02 EP Interpretation: reviewed, normal General Appearance: no apparent distress, alert, GCS 15, non-toxic Head: normocephalic, atraumatic Eyes: bilateral eye normal inspection, bilateral eye PERRL ENT: hearing grossly normal, normal voice Neck: full range of motion Respiratory: chest non-tender, lungs clear, normal breath sounds, no respiratory distress, no wheezing, speaking full sentences Cardiovascular #1: regular rate, rhythm, edema - mild 1+ non pitting edema in the bilateral LE's Gastrointestinal: normal bowel sounds, non tender, soft Rectal: deferred Musculoskeletal: back normal, gait/station normal, normal range of motion, non- tender Neurologic: alert, oriented x3, responsive, motor strength/tone normal, sensory intact, normal gait, speech normal Skin: normal color, no rash, warm/dry, well hydrated Medical Decision Making PA Attestation Dr. ring is my supervising Physician whom patient management has been discussed with. Diagnostic Impression: Primary Impression: Encounter for medication refill Additional Impressions: History of CVA (cerebrovascular accident) History of hypertension History of recent hospitalization ER Course 62-year-old male presents to the emergency department requesting medication refill/prescriptions for his medications. Patient does not know the name of the medications for which she is prescribed. Patient states that he was recently discharged from the hospital after several days of admission and was not given clear follow up instructions nor refills of his medications. Patient denies abdominal pain, nausea, vomiting, fevers, chills, lower extremity edema, difficulty breathing, dyspnea. Denies CP, Palpitations, LOC, AMS, dizziness, Changes in Vision, Sensation, paresthesias, or a sudden severe headache. CURRENT MEDICATIONS: ( FROM RECENT Discharge summary ) 1. Aspirin 81 mg one tablet p.o. daily. 2. Lipitor 80 mg one tablet p.o. daily. 3. Benazepril 20 mg one tablet p.o. daily. 4. Coreg 6.25 mg p.o. twice daily. 5. Chlorthalidone 50 mg one tablet p.o. daily. 6. Lasix 40 mg one tablet p.o. daily. 7. Lisinopril 20 mg one tablet p.o. daily. 8. Dulera 100/5 2 puffs p.o. twice daily. 9. Spiriva 18 mcg one puff p.o. daily. 10. Plavix 75 mg Daily. Pt was also started on 75mg Plavix Daily after being admitted for CVA with multiple infarcts. pt. has hx of non-compliance with medications. Pt. presents to the ED c/o running out of his medications, and not having rx's or follow up scheduled after recent d/c from hospital stay for CVA. Ddx considered but are not limited to: drug seeking, OD, CHF, HTN, non- compliance just to name a few. Vital signs: are WNL, pt. is afebrile H&PE are most consistent with need for medication refill. ORDERS: none required at this time, the diagnosis is clinical ED INTERVENTIONS: -ASA PO -Plavix PO *!* Review provided list of free or reduced cost health clinics for follow up * !* Patient was also given Dr. Ibrahim's information as a referral. DISCHARGE: At this time pt. is stable for d/c to home. Will provide printed patient care instructions, and any necessary prescriptions. Care plan and follow up instructions have been discussed with the patient prior to discharge. Last Vital Signs Date Time Temp Pulse Resp B/P (MAP) Pulse Ox O2 Delivery O2 Flow Rate FiO2 06/24/17 13:24 97.2 70 20 167/92 97 Room Air Disposition: HOME, SELF-CARE Condition: Stable Scripts Aspirin* (ASPIR 81*) 81 Mg Tablet.dr 81 MG ORAL DAILY for 15 Days, #15 TAB Prov: Francheska Carr. 06/24/17 Furosemide* (LASIX*) 20 Mg Tablet 20 MG ORAL DAILY for 15 Days, #15 TAB Prov: Francheska Carr. 06/24/17 Atorvastatin Calcium* (LIPITOR*) 80 Mg Tablet 80 MG ORAL BEDTIME for 15 Days, #15 TAB Prov: Francheska Carr. 06/24/17 Clopidogrel Bisulfate* (PLAVIX*) 75 Mg Tablet 75 MG ORAL DAILY for 15 Days, #15 TAB Prov: Francheska Carr 06/24/17 Lisinopril (LISINOPRIL*) 20 Mg Tablet 20 MG ORAL DAILY for 15 Days, #15 TAB Prov: Francheska Carr. 06/24/17 Carvedilol (Coreg) 6.25 Mg Tablet 6.25 MG ORAL EVERY 12 HOURS for 15 Days, #30 TAB Prov: Francheska Carr. 06/24/17 Patient Instructions: Medicine Refill at the Emergency Department Additional Instructions: Take medications as directed. Follow up with a Primary Care Provider in 3-5 days, even if your symptoms have resolved. --Please review list of primary care clinics, if you do not already have a primary care provider Return sooner to ED if new symptoms occur, or current symptoms become worse. - Please note that this Emergency Department Report was dictated using [employer] dresser technology software, occasionally this can lead to erroneous entry secondary to interpretation by the dictation equipment. Francheska Carr Jun 24, 2017 13:37
[2017-06-24] MEDS ORDERED: Aspirin Baby 81mg ORAL ONE (13:45)
[2017-06-24] MEDS ORDERED: PLAVIX75 MG ORAL (13:47)
[2017-06-24] MEDS ORDERED: ASPIR 8181 MG ORAL (13:47)
[2017-06-24] MEDS ORDERED: LISINOPRIL20 MG ORAL (13:47)
[2017-06-24] MEDS ORDERED: ATORVASTATIN CA80 MG ORAL (13:47)
[2017-06-24] MEDS ORDERED: COREG6.25 MG ORAL (13:47)
[2017-06-24] MEDS ORDERED: LASIX20 M1 ORAL (13:47)
[2017-06-24 14:00] VITALS: BP 167/92
== END 2017-06-24 14:16 | disposition home or self-care (01) ==
LOC: EMR 13:40
DX: Z76.0 Encounter for issue of repeat prescription (principal); I10 Essential (primary) hypertension; R73.03 Prediabetes; J44.9 Chronic obstructive pulmonary disease, unspecified; Z86.73 Personal history of transient ischemic attack (TIA), and cerebral infarction without residual deficits; Z79.82 Long term (current) use of aspirin; Z79.02 Long term (current) use of antithrombotics/antiplatelets
CPT/HCPCS: 99284

== ENCOUNTER 2018-01-13 10:01 | Emergency (ER) | payer OTHER ==
[~2018-01-13] VITALS: Ht 180.3 cm; Wt 90.7 kg
[~2018-01-13 10:01] MED LIST changes: +COREG6.25 MG ORAL; +LASIX20 M1 ORAL; +PLAVIX75 MG ORAL
[2018-01-13 10:16] VITALS: BP 179/101
--- NOTE | 2018-01-13 10:18 | Emergency Room Report ---
History of Present Illness General Chief Complaint: To Be Triaged Source: Patient, EMS Present Illness HPI Patient presents with bilateral leg weakness. He states he is unable to ambulate. Today he was unable to get up out of bed. Denies any headache or fevers. He states the weakness if bilateral - legs only. Denies numbness or headache. No recent trauma. Has chronic edema of legs. He states this hasn't changed. The patient has a history of seizures but is not taking any medication for seizures at this time. He denies recent seizures. Initially patient denied doing any drugs. When I noticed blisters on his hand he admitted to doing crack. Patient also has a cough that has clear phlegm. Denies any wheezing, dyspnea, chest pain. Prior h/o TB. No night sweats or hemoptysis. According to our records h/o prior stroke. Admitted Jun 2017 for alleged CVA. At that time he complained of R leg weakness and numbness which seemed acute. At that time he refused to be placed in a structured environment (rehab). In the past, it has been recorded that he is not compliant with medical regimen. In past was on Plavix and other medications. Appetite good. States he is hungry now. No NVD, weight loss. Denies dysuria, hematuria, constipation. Allergies: Coded Allergies: No Known Allergies (Verified , 12/21/06) Patient History Past Medical History: see triage record Social History: Reports: drug use - though previously denied; Denies: smoking - prior, alcohol use Social History Narrative on streets Reviewed Nursing Documentation: PMH: Agreed; PSxH: Agreed Nursing Documentation-PMH Hx Cardiac Problems: Yes Hx Hypertension: Yes Hx COPD: Yes Hx Diabetes: Yes - "Pre diabetes" Hx Cancer: No Hx Gastrointestinal Problems: No Hx Dialysis: No Hx Neurological Problems: No Hx Cerebrovascular Accident: Yes - 2016 Hx Weakness: Yes Review of Systems All Other Systems: negative except mentioned in HPI Physical Exam Vital Signs Date Time Temp Pulse Resp B/P (MAP) Pulse Ox O2 Delivery O2 Flow Rate FiO2 01/13/18 10:16 98.7 76 15 179/101 97 Room Air 98.7 01/13/18 11:18 21 Sp02 EP Interpretation: reviewed, normal General Appearance: alert, GCS 15, non-toxic, other - dishevelled Head: normocephalic, atraumatic Eyes: bilateral eye PERRL, bilateral eye EOMI, bilateral eye Scleral Injection ENT: moist mucus membranes - poor dentition Neck: full range of motion, supple Respiratory: no respiratory distress, no retraction, rhonchi - clear with cough Cardiovascular #1: regular rate, rhythm, edema - 2 + pitting bilat Cardiovascular #2: 2+ radial (L), 2+ dorsalis pedis (R), 2+ dorsalis pedis (L) Gastrointestinal: non tender, soft, non-distended Genitourinary: no CVA tenderness Musculoskeletal: no calf tenderness, Michelle's Sign negative, swelling - bilateral LE Neurologic: 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, 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 nml as tested - alleged decreased sight R eye which is chronic, sensory intact, cerebellar normal - UE, speech normal, no Babinski, motor weakness - poor volition LE bilat, UE good strength Psychiatric: no suicidal/homicidal ideation, depressed affect Reflexes: 2+ knee (R) - slightly more brisk than L, 2+ knee (L) Skin: abrasions - LE bilat, turk - L index MCP area Medical Decision Making Diagnostic Impression: Primary Impression: Weakness Additional Impressions: Cocaine abuse COPD (chronic obstructive pulmonary disease) Qualified Codes: J43.9 - Emphysema, unspecified Peripheral edema ER Course Patient presents with bilateral leg weakness. Differential includes stroke, dehydration, acute myocardial infarction, DVT, drug abuse, alcohol abuse, deconditioning amongst others. Evaluation will be with EKG, CT the head, chest x-ray and labs. During the physical exam he admitted to a crack usage and this may contribute. The patient will receive IV hydration, breathing treatments and repeated evaluation. Neurologically he has non-focal weakness and there is no evidence of stroke at this time. EKG without injury. CXR with COPD, no infiltrates. Labs with normal WBC and CMP. Neg troponin and normal TSH. + THC and cocaine in tox. Patient improved after eating and breathing treatments. Sleeping soundly, but easily roused. His medical condition is stable (as documented in the past). Socially, the patient has several issues and therefore rn social services is consulted. In the past, he has refused placement. Evaluated by rn social services. He stated to her that he will be fine if he has a cane. He claims to have a wheelchair also. Ambulatory with cane with wide based gait with limp of R leg and stooped over ( previously noted) but no ataxia. Patient improved and stable for outpatient observation and treatment. Laboratory Tests Test 01/13/18 10:30 01/13/18 12:02 White Blood Count 4.8 K/UL (4.8-10.8) Red Blood Count 4.99 M/UL (4.70-6.10) Hemoglobin 15.2 G/DL (14.2-18.0) Hematocrit 46.2 % (42.0-52.0) Mean Corpuscular Volume 93 FL (80-99) Mean Corpuscular Hemoglobin 30.5 PG (27.0-31.0) Mean Corpuscular Hemoglobin Concent 32.9 G/DL (32.0-36.0) Red Cell Distribution Width 12.3 % (11.6-14.8) Platelet Count 164 K/UL (150-450) Mean Platelet Volume 7.4 FL (6.5-10.1) Neutrophils (%) (Auto) 66.6 % (45.0-75.0) Lymphocytes (%) (Auto) 23.2 % (20.0-45.0) Monocytes (%) (Auto) 7.9 % (1.0-10.0) Eosinophils (%) (Auto) 1.0 % (0.0-3.0) Basophils (%) (Auto) 1.3 % (0.0-2.0) Erythrocyte Sedimentation Rate 5 MM/HR (0-20) Prothrombin Time 10.5 SEC (9.30-11.50) Prothrombin Time INR 1.0 (0.9-1.1) PTT 28 SEC (23-33) Sodium Level 143 MMOL/L (136-145) Potassium Level 3.9 MMOL/L (3.5-5.1) Chloride Level 108 MMOL/L (98-107) H Carbon Dioxide Level 26 MMOL/L (21-32) Anion Gap 9 mmol/L (5-15) Blood Urea Nitrogen 9 mg/dL (7-18) Creatinine 1.0 MG/DL (0.55-1.30) Estimate Glomerular Filtration Rate > 60 mL/min (>60) Glucose Level 99 MG/DL (74-106) Calcium Level 8.7 MG/DL (8.5-10.1) Magnesium Level 2.1 MG/DL (1.8-2.4) Total Bilirubin 0.6 MG/DL (0.2-1.0) Aspartate Amino Transferase (AST) 18 U/L (15-37) Alanine Aminotransferase (ALT) 22 U/L (12-78) Alkaline Phosphatase 96 U/L (46-116) Total Creatine Kinase 192 U/L (26-308) Troponin I 0.010 ng/mL (0.000-0.056) Pro-B-Type Natriuretic Peptide 130 pg/mL (0-125) H Total Protein 6.7 G/DL (6.4-8.2) Albumin 3.6 G/DL (3.4-5.0) Globulin 3.1 g/dL Albumin/Globulin Ratio 1.2 (1.0-2.7) Lipase 298 U/L (73-393) Thyroid Stimulating Hormone (TSH) 0.595 uiU/mL (0.358-3.740) Serum Alcohol < 3 mg/dL Urine Color Pale yellow Urine Appearance Clear Urine pH 7 (4.5-8.0) Urine Specific [place] 1.005 (1.005-1.035) Urine Protein Negative (NEGATIVE) Urine Glucose (UA) Negative (NEGATIVE) Urine Ketones Negative (NEGATIVE) Urine Occult Blood Negative (NEGATIVE) Urine Nitrite Negative (NEGATIVE) Urine Bilirubin Negative (NEGATIVE) Urine Urobilinogen 1 MG/DL (0.0-1.0) H Urine Leukocyte Esterase 1+ (NEGATIVE) H Urine RBC 0 /HPF (0 - 0) Urine WBC 0-2 /HPF (0 - 0) Urine Squamous Epithelial Cells Occasional /LPF Urine Bacteria Occasional /HPF (NONE) Urine Opiates Screen Negative (NEGATIVE) Urine Barbiturates Screen Negative (NEGATIVE) Phencyclidine (PCP) Screen Negative (NEGATIVE) Urine Amphetamines Screen Negative (NEGATIVE) Urine Benzodiazepines Screen Negative (NEGATIVE) Urine Cocaine Screen Positive (NEGATIVE) H Urine Marijuana (THC) Screen Positive (NEGATIVE) H EKG Diagnostic Results Rate: normal Rhythm: NSR ST Segments: no acute changes Rhythm Strip Diag. Results EP Interpretation: yes Rhythm: NSR, no PVC's, no ectopy Chest X-Ray Diagnostic Results Chest X-Ray Diagnostic Results : Chest X-Ray Ordered: Yes # of Views/Limited/Complete: 1 View Indication: Other EP Interpretation: Yes Interpretation: no consolidation, no effusion, no pneumothorax CT/MRI/US Diagnostic Results CT/MRI/US Diagnostic Results : Imaging Test Ordered: head Impression no new infarcts, bleed, masses Impression: Chronic and age-related changes Negative for acute intracranial bleed or mass effect Multiple old lacunar infarcts, also described previously Last Vital Signs Date Time Temp Pulse Resp B/P (MAP) Pulse Ox O2 Delivery O2 Flow Rate FiO2 01/13/18 14:48 98.5 87 17 162/86 96 Room Air 21 98.7 Status: improved Disposition: HOME, SELF-CARE Condition: Improved Scripts Bacitracin (Bacitracin) 28.4 Gm Oint...g. 1 APPLIC TOPIC BID, #20 GM Prov: Owen Nuñez M.D. 01/13/18 Albuterol Sulfate* (ALBUTEROL SULFATE MDI*) 8.5 Gm Hfa.aer.ad 2 PUFF INH Q6H, #1 EA 0 Refills Prov: Owen Nuñez M.D. 01/13/18 Owen Nuñez M.D. Jan 13, 2018 10:18
[2018-01-13] MEDS ORDERED: Albuterol ud Inhalation HHN ONE (10:45)
[2018-01-13] MEDS ORDERED: Ipratropium 0.02% Inh Soln 2.5ml UD HHN ONE (10:45)
[2018-01-13 10:53] LABS: BASOPHILS % (AUTO) 1.3 % (0.0-2.0); HEMATOCRIT 46.2 % (42.0-52.0); HEMOGLOBIN 15.2 G/DL (14.2-18.0); LYMPHOCYTES % (AUTO) 23.2 % (20.0-45.0); MEAN CORPUSCULAR VOLUME 93 FL (80-99); MONOCYTES % (AUTO) 7.9 % (1.0-10.0); NEUTROPHILS % (AUTO) 66.6 % (45.0-75.0); PLATELET COUNT 164 K/UL (150-450); RED BLOOD COUNT 4.99 M/UL (4.70-6.10); RED CELL DISTRIBUTION WIDTH 12.3 % (11.6-14.8); WHITE BLOOD COUNT 4.8 K/UL (4.8-10.8)
[2018-01-13 10:58] LABS: ANION GAP 9 mmol/L (5-15); BLOOD UREA NITROGEN 9 mg/dL (7-18); CALCIUM 8.7 MG/DL (8.5-10.1); CARBON DIOXIDE 26 MMOL/L (21-32); CHLORIDE 108 MMOL/L (98-107); POTASSIUM 3.9 MMOL/L (3.5-5.1); SODIUM 143 MMOL/L (136-145)
[2018-01-13 11:11] LABS: ALANINE AMINOTRANSFERASE 22 U/L (12-78); ALBUMIN 3.6 G/DL (3.4-5.0); ALBUMIN/GLOBULIN RATIO 1.2 (1.0-2.7); ALKALINE PHOSPHATASE 96 U/L (46-116); ASPARTATE AMINO TRANSFERASE 18 U/L (15-37); BILIRUBIN,TOTAL 0.6 MG/DL (0.2-1.0); CREATINE KINASE 192 U/L (26-308)
--- NOTE | 2018-01-13 11:37 | Diagnostic Imaging Report ---
Indications: Weakness Technique: Spiral acquisitions obtained through the brain. Angled axial and coronal 5 x 5 mm slices were reconstructed. Total dose length product 1431.78 mGycm. CTDI vol(s) 70.38 mGy. Dose reduction achieved using automated exposure control Comparison: 06/14/2017 Findings: Normal caliber ventricles, minimally prominent extra axial CSF spaces. There is extensive periventricular deep white matter low attenuation, consistent with chronic ischemic change. Old lacunar infarcts are seen in the right internal capsule, left thalamus and within the jose and left side of the midbrain as well as within the deep white matter. No acute intracranial hemorrhage or edema. No mass effect nor midline shift. Intact calvarium. Visualized orbits and sinuses are unremarkable Impression: Chronic and age-related changes Negative for acute intracranial bleed or mass effect Multiple old lacunar infarcts, also described previously The CT scanner at [facility] is accredited by the [employer] and the scans are performed using protocols designed to limit radiation exposure to as low as reasonably achievable to attain images of sufficient resolution adequate for diagnostic evaluation.
--- NOTE | 2018-01-13 11:39 | Diagnostic Imaging Report ---
Indication: Cough Technique: One view of the chest Comparison: 06/14/2017 Findings: Lungs and pleural spaces are clear. The heart size is upper limits of normal. The aorta is tortuous and ectatic. Upper mediastinum is unremarkable Impression: No acute process
[2018-01-13 12:20] LABS: APPEARANCE,URINE CLEAR; BILIRUBIN, URINE NEGATIVE (NEGATIVE); COLOR,URINE PALE YELLOW; GLUCOSE, URINE (UA) NEGATIVE (NEGATIVE); KETONES,URINE NEGATIVE (NEGATIVE); LEUKOCYTE ESTERASE ,URINE 1+ (NEGATIVE); NITRITE,URINE NEGATIVE (NEGATIVE); PH,URINE 7 (4.5-8.0); PROTEIN,URINE NEGATIVE (NEGATIVE); UROBILINOGEN,URINE 1 MG/DL (0.0-1.0)
[2018-01-13 12:46] VITALS: BP 168/86
[2018-01-13] MEDS ORDERED: BACITRACIN15 GM TOPIC (14:08)
[2018-01-13] MEDS ORDERED: ALBUTEROL SULF8.5 GM INH (14:08)
[2018-01-13] MEDS ORDERED: Bacitracin Oint UD TOPIC ONE (14:15)
[2018-01-13 14:48] VITALS: BP 162/86
--- NOTE | 2018-01-16 19:47 | Cardiology Report ---
APPROVED REPORT EKG Measurement Heart [id number] Normal sinus rhythm Possible Left atrial enlargement Left ventricular hypertrophy Nonspecific ST and T wave abnormality Prolonged QT Abnormal ECG
== END 2018-01-13 14:48 | disposition home or self-care (01) ==
LOC: EMR 11:40
DX: R53.1 Weakness (principal); F14.10 Cocaine abuse, uncomplicated; J44.9 Chronic obstructive pulmonary disease, unspecified; I10 Essential (primary) hypertension; R73.03 Prediabetes; R56.9 Unspecified convulsions; Z86.73 Personal history of transient ischemic attack (TIA), and cerebral infarction without residual deficits
CPT/HCPCS: 36415; 70450; 71045; 80053; 80307; 80329; 81003; 82550; 83690; 83735; 83880; 84443; 84484; 85025; 85610; 85651; 85730; 93005; 94640; 94664; 96360; 96361; 96374; 99284

== ENCOUNTER 2018-02-15 00:27 | Emergency (ER) | payer SELFPAY ==
[~2018-02-15] VITALS: Ht 180.3 cm; Wt 86.2 kg
[~2018-02-15 00:27] MED LIST changes: +BACITRACIN15 GM TOPIC
[2018-02-15 00:30] VITALS: BP 143/88
[2018-02-15] MEDS ORDERED: Albuterol ud Inhalation HHN ONE (00:45)
[2018-02-15] MEDS ORDERED: ALBUTEROL SULF8.5 GM INH (01:25)
--- NOTE | 2018-02-15 01:26 | Emergency Room Report ---
History of Present Illness General Chief Complaint: General Complaint Source: Patient, EMS Present Illness HPI This a 63-year-old male with a history of CVA. Also has a history high blood pressure and pain abuse. He presents with chief complaint is weakness. Denies any fever or chills. Denies any nausea vomiting. Said he can't walk. He uses a wheelchair chronically. Brought in by EMS with generalize weakness complaint. Denies any other complaint. No suicidal thoughts or homicidal thought. Allergies: Coded Allergies: No Known Allergies (Unverified , 02/15/18) Patient History Past Medical History: see triage record, old chart reviewed, HTN, CVA/TIA Past Surgical History: other Pertinent Family History: none Social History: Reports: smoking, drug use Immunizations: other Reviewed Nursing Documentation: PMH: Agreed; PSxH: Agreed Nursing Documentation-PMH Hx Hypertension: Yes Review of Systems Constitutional: Reports: weakness Eye: Denies: eye pain, blurred vision ENT: Denies: ear pain, nose congestion, throat swelling Respiratory: Denies: cough, shortness of breath Cardiovascular: Denies: chest pain, palpitations Gastrointestinal: Denies: abdominal pain, diarrhea, nausea, vomiting Musculoskeletal: Denies: back pain, joint pain Skin: Denies: rash Neurological: Denies: headache, numbness Endocrine: Denies: increased thirst, increased urine Hematologic/Lymphatic: Denies: easy bruising All Other Systems: negative except mentioned in HPI Physical Exam Vital Signs Date Time Temp Pulse Resp B/P (MAP) Pulse Ox O2 Delivery O2 Flow Rate FiO2 02/15/18 00:12 98.3 82 18 146/95 98 Room Air 98.2 02/15/18 00:40 36 vitals unremarkable Sp02 EP Interpretation: reviewed, normal General Appearance: well appearing, no apparent distress, alert, other - dishelved. malodorous. Head: normocephalic, atraumatic Eyes: bilateral eye PERRL, bilateral eye EOMI ENT: hearing grossly normal, normal pharynx Neck: full range of motion, supple, no meningismus Respiratory: chest non-tender, normal breath sounds, wheezing - slight Cardiovascular #1: regular rate, rhythm, no murmur Gastrointestinal: normal bowel sounds, non tender, no mass, no organomegaly, no bruit, non-distended Musculoskeletal: back normal Psychiatric: mood/affect normal Skin: warm/dry Medical Decision Making Diagnostic Impression: Primary Impression: Weakness generalized Additional Impressions: Bronchitis Cocaine abuse ER Course His patient presents with weakness and said he can't walk. He doesn't walking the first place. He uses a wheelchair. He able to stands up. No focal deficit this indicates CVA. Blood pressure unremarkable. We'll discharge home. He does have some mild wheezing that resolved with treatment. Last Vital Signs Date Time Temp Pulse Resp B/P (MAP) Pulse Ox O2 Delivery O2 Flow Rate FiO2 02/15/18 00:52 89 22 99 Room Air 21 02/15/18 00:12 98.3 146/95 98.2 Status: improved Disposition: HOME, SELF-CARE Condition: Stable Scripts Albuterol Sulfate* (ALBUTEROL SULFATE MDI*) 8.5 Gm Hfa.aer.ad 2 PUFF INH Q4H PRN for cough/wheezing, #1 EA 0 Refills Prov: AKSHAT CH M.D. 02/15/18 Additional Instructions: Stop using drugs. Follow-up with your doctor in 7 days. Return if worse. AKSHAT CH M.D. Feb 15, 2018 01:26
[2018-02-15 02:30] VITALS: BP 132/84
[2018-02-15 04:30] VITALS: BP 138/84
[2018-02-15 05:45] VITALS: BP 138/84
== END 2018-02-15 05:45 | disposition home or self-care (01) ==
LOC: EDBD 00:27 → MERGE 01:55 → EMR 01:55
DX: R53.1 Weakness (principal); J40 Bronchitis, not specified as acute or chronic; F14.10 Cocaine abuse, uncomplicated; I10 Essential (primary) hypertension; Z86.73 Personal history of transient ischemic attack (TIA), and cerebral infarction without residual deficits
CPT/HCPCS: 94640; 94664; 99283

== ENCOUNTER 2018-04-06 23:46 | Emergency (ER) | payer MEDICAID, OTHER ==
[~2018-04-06] VITALS: Ht 182.9 cm; Wt 102.1 kg
[2018-04-07] VITALS (8 sets, daily range): BP systolic 154–189; BP diastolic 61–110
--- NOTE | 2018-04-07 00:44 | Emergency Room Report ---
History of Present Illness General Chief Complaint: General Complaint Source: Patient Present Illness HPI Patient presents with complaints of general weakness He reports that he has been having some difficulty taking his blood pressure medicine somewhat noncompliant Denies any chest pain denies any back or flank pain Patient initially reports weakness in his legs however he is chronically wheelchair-bound Patient also has had previous CVAs denies any new focal weakness denies any neck pain or photophobia Allergies: Coded Allergies: No Known Allergies (Verified , 12/21/06) Patient History Past Medical History: see triage record Pertinent Family History: none Reviewed Nursing Documentation: PMH: Agreed; PSxH: Agreed Nursing Documentation-PMH Hx Cardiac Problems: Yes Hx Hypertension: Yes Hx COPD: Yes Hx Diabetes: Yes - "Pre diabetes" Hx Cancer: No Hx Gastrointestinal Problems: No Hx Dialysis: No Hx Neurological Problems: No Hx Cerebrovascular Accident: Yes - 2017 Hx Seizures: Yes Hx Weakness: Yes Review of Systems All Other Systems: negative except mentioned in HPI Physical Exam Vital Signs Date Time Temp Pulse Resp B/P (MAP) Pulse Ox O2 Delivery O2 Flow Rate FiO2 04/06/18 23:50 98.2 60 18 166/100 100 Room Air 98.2 Sp02 EP Interpretation: reviewed, normal General Appearance: well appearing, no apparent distress Head: normocephalic, atraumatic Eyes: bilateral eye PERRL, bilateral eye EOMI ENT: moist mucus membranes, other - Poor dentition Neck: full range of motion, supple Respiratory: lungs clear, normal breath sounds Cardiovascular #1: regular rate, rhythm Gastrointestinal: non tender, soft Musculoskeletal: other - Patient does have deficit from previous CVAs contracted left hand, weakness right lower extremity Neurologic: alert, oriented x3, responsive Skin: no rash Lymphatic: no adenopathy Medical Decision Making Diagnostic Impression: Primary Impression: Encounter for generalized patient complaints ER Course Patient is a fairly complex patient with multiple differential to consideration including but not limited to cardiac cardiopulmonary and vascular emergencies Patient's blood work is at baseline levels CT imaging does not reveal any acute pathology Patient at this time requires disposition with possible social work assistance Patient was brought to the ER without his wheelchair Otherwise no change in condition and patient stable for close outpatient follow- up Labs Test 04/07/18 01:00 White Blood Count 4.7 K/UL (4.8-10.8) Red Blood Count 5.20 M/UL (4.70-6.10) Hemoglobin 15.4 G/DL (14.2-18.0) Hematocrit 48.2 % (42.0-52.0) Mean Corpuscular Volume 93 FL (80-99) Mean Corpuscular Hemoglobin 29.7 PG (27.0-31.0) Mean Corpuscular Hemoglobin Concent 32.0 G/DL (32.0-36.0) Red Cell Distribution Width 12.6 % (11.6-14.8) Platelet Count 172 K/UL (150-450) Mean Platelet Volume 7.5 FL (6.5-10.1) Neutrophils (%) (Auto) 54.0 % (45.0-75.0) Lymphocytes (%) (Auto) 32.1 % (20.0-45.0) Monocytes (%) (Auto) 8.4 % (1.0-10.0) Eosinophils (%) (Auto) 4.5 % (0.0-3.0) Basophils (%) (Auto) 1.1 % (0.0-2.0) Sodium Level 144 MMOL/L (136-145) Potassium Level 4.2 MMOL/L (3.5-5.1) Chloride Level 108 MMOL/L (98-107) Carbon Dioxide Level 28 MMOL/L (21-32) Anion Gap 8 mmol/L (5-15) Blood Urea Nitrogen 17 mg/dL (7-18) Creatinine 1.0 MG/DL (0.55-1.30) Estimat Glomerular Filtration Rate > 60 mL/min (>60) Glucose Level 99 MG/DL (74-106) Calcium Level 8.6 MG/DL (8.5-10.1) Total Bilirubin 0.5 MG/DL (0.2-1.0) Aspartate Amino Transf (AST/SGOT) 20 U/L (15-37) Alanine Aminotransferase (ALT/SGPT) 18 U/L (12-78) Alkaline Phosphatase 107 U/L (46-116) Total Creatine Kinase 153 U/L (26-308) Creatine Kinase MB 1.2 NG/ML (0.0-3.6) Creatine Kinase MB Relative Index 0.7 Total Protein 7.0 G/DL (6.4-8.2) Albumin 3.6 G/DL (3.4-5.0) Globulin 3.4 g/dL Albumin/Globulin Ratio 1.1 (1.0-2.7) EKG Diagnostic Results Rate: normal Rhythm: NSR ST Segments: no acute changes Rhythm Strip Diag. Results EP Interpretation: yes Rate: 66 Rhythm: NSR, no PVC's, no ectopy Chest X-Ray Diagnostic Results Chest X-Ray Diagnostic Results : Chest X-Ray Ordered: Yes # of Views/Limited/Complete: 1 View Indication: Chest Pain EP Interpretation: Yes Interpretation: no consolidation, no effusion, no pneumothorax Impression: No acute disease Electronically Signed by: Anthony Olguin DO CT/MRI/US Diagnostic Results CT/MRI/US Diagnostic Results : Impression CT head no acute disease Last Vital Signs Date Time Temp Pulse Resp B/P (MAP) Pulse Ox O2 Delivery O2 Flow Rate FiO2 04/06/18 23:50 98.2 60 18 166/100 100 Room Air 98.2 Status: improved Disposition: HOME, SELF-CARE Condition: Improved Referrals: NOT CHOSEN IPA/MD,REFERRING (PCP) Additional Instructions: Patient is provided with the discharge instructions notified to follow up with primary doctor in the next 2-3 days otherwise return to the er with any worsening symptoms. Please note that this report is being documented using [employer] technology. This can lead to erroneous entry secondary to incorrect interpretation by the dictating instrument. Anthony Olguin DO Apr 07, 2018 00:44
[2018-04-07 01:37] LABS: BASOPHILS % (AUTO) 1.1 % (0.0-2.0); EOSINOPHILS % (AUTO) 4.5 % (0.0-3.0); HEMATOCRIT 48.2 % (42.0-52.0); HEMOGLOBIN 15.4 G/DL (14.2-18.0); LYMPHOCYTES % (AUTO) 32.1 % (20.0-45.0); MEAN CORPUSCULAR VOLUME 93 FL (80-99); MONOCYTES % (AUTO) 8.4 % (1.0-10.0); PLATELET COUNT 172 K/UL (150-450); RED CELL DISTRIBUTION WIDTH 12.6 % (11.6-14.8); WHITE BLOOD COUNT 4.7 K/UL (4.8-10.8)
[2018-04-07 01:49] LABS: ANION GAP 8 mmol/L (5-15); BLOOD UREA NITROGEN 17 mg/dL (7-18); CALCIUM 8.6 MG/DL (8.5-10.1); CARBON DIOXIDE 28 MMOL/L (21-32); CHLORIDE 108 MMOL/L (98-107); POTASSIUM 4.2 MMOL/L (3.5-5.1); SODIUM 144 MMOL/L (136-145)
[2018-04-07 02:02] LABS: ALANINE AMINOTRANSFERASE 18 U/L (12-78); ALBUMIN 3.6 G/DL (3.4-5.0); ALBUMIN/GLOBULIN RATIO 1.1 (1.0-2.7); ALKALINE PHOSPHATASE 107 U/L (46-116); ASPARTATE AMINO TRANSFERASE 20 U/L (15-37); BILIRUBIN,TOTAL 0.5 MG/DL (0.2-1.0); CKMB 1.2 NG/ML (0.0-3.6); CREATINE KINASE 153 U/L (26-308)
--- NOTE | 2018-04-07 08:56 | Diagnostic Imaging Report ---
Indications: Headache Technique: Spiral acquisitions obtained through the brain. Angled axial and coronal 5 x 5 mm slices were reconstructed. Total dose length product 1376.09 mGycm. CTDI vol(s) 70.38 mGy. Dose reduction achieved using automated exposure control Comparison: 01/13/2018 Findings: Again demonstrated is fairly extensive periventricular deep white matter low-attenuation, consistent with chronic ischemic changes. Multiple lacunar infarcts are seen within the basal ganglia bilaterally, all of which appear to have been present previously but a few appearing more conspicuous than on the previous exam, particularly those in the right thalamus and in the anterior left lentiform nucleus. There are questionably old lacunar infarcts in the jose as well. Old lacunar infarcts are seen within the right cerebellar hemisphere. There is mild age-related enlargement of the ventricles and extra axial CSF spaces. No acute intracranial hemorrhage or edema, mass effect, nor midline shift. Impression: Multiple old lacunar infarcts, also present previously but some appearing more conspicuous than on the prior exam of 01/13/2018 Other chronic and age-related changes, as described Negative for acute intracranial bleed or mass effect This agrees with the preliminary interpretation provided overnight by [facility] teleradiology service, with minor variation. The CT scanner at [facility] is accredited by the [employer] and the scans are performed using protocols designed to limit radiation exposure to as low as reasonably achievable to attain images of sufficient resolution adequate for diagnostic evaluation.
--- NOTE | 2018-04-07 08:56 | Diagnostic Imaging Report ---
Indication: Chest pain Technique: One view of the chest Comparison: 01/13/2018 Findings: Patient is rotated to the right. The aorta is tortuous and ectatic. The lungs and pleural spaces are clear. The heart size is normal. No significant interim change Impression: No acute process
[2018-04-07] MEDS ORDERED: WHEELCHAIR1 EACH MC (10:07)
[2018-04-07] MEDS ORDERED: Carvedilol 6.25mg Tab ORAL ONE (13:00)
[2018-04-07] MEDS ORDERED: Lisinopril 10mg tab ORAL ONE (13:00)
--- NOTE | 2018-04-07 15:41 | Cardiology Report ---
APPROVED REPORT EKG Measurement Heart [id number] Normal sinus rhythm Moderate voltage criteria for LVH, may be normal variant Nonspecific T wave abnormality Abnormal ECG
== END 2018-04-07 16:41 | disposition home or self-care (01) ==
LOC: EDBD 23:46 → EMR 04-07 00:14
DX: R53.1 Weakness (principal); I10 Essential (primary) hypertension; J44.9 Chronic obstructive pulmonary disease, unspecified; Z86.73 Personal history of transient ischemic attack (TIA), and cerebral infarction without residual deficits; R73.03 Prediabetes; Z99.3 Dependence on wheelchair
CPT/HCPCS: 36415; 70450; 71045; 80053; 82550; 82553; 85025; 93005; 99284